=== PATIENT | male | born 1960 | race Caucasian/White ===

== ENCOUNTER 2021-06-29 15:10 | Outpatient (REF) | payer MEDICARE, MEDICAID, SELFPAY ==
[2021-06-29 15:24] LABS: MANUAL DIFF FLAG NO
[2021-06-29 15:30] LABS: Basophils Absolute Auto 0.1 X10*3/uL (0.0-0.2); Basophils Percent Auto 1.1 % (0-2); Eosinophils Absolute Auto 0.4 X10*3/uL (0.0-0.4); Eosinophils Percent Auto 5.8 % (0-4); Hematocrit 41.8 % (42-52); Hemoglobin 14.2 g/dl (14.0-18.0); Imm Gran Abs Auto 0.01 X10*3/uL (0.00-0.03); Imm Gran Pct Auto 0.1 % (0.0-0.4); Lymphocytes Percent Auto 27.7 % (20-40); Mean Corpuscular Hemoglobin 31.3 pg (27.0-33.0); Mean Corpuscular Volume 92.3 fL (80-98); Mean Platelet Volume 11.1 fL (9.4-12.4); Monocytes Absolute Auto 0.6 X10*3/uL (0.1-1.2); Monocytes Percent Auto 8.7 % (2-11); Neutrophils Percent Auto 56.6 % (45-73); Platelet Count 151 X10*3/uL (160-400); Red Blood Count 4.53 X10*6/uL (4.60-5.80); Red Cell Distribution Width 14.4 % (11.0-16.0); White Blood Count 7.1 X10*3/uL (4.8-10.8)
[2021-06-29 15:54] LABS: Alanine Aminotransferase 8 U/L (0-40); Albumin Level 4.2 g/dL (3.5-5.0); Alkaline Phosphatase 76 U/L (39-117); Anion Gap 11 (12-20); Aspartate Amino Transferase 15 U/L (5-37); Bilirubin Total 0.8 mg/dL (0.0-1.0); Blood Urea Nitrogen 18 mg/dL (9-16); Calcium 8.9 mg/dL (8.4-10.2); Carbon Dioxide 26 mmol/L (22-29); Chloride 107 mmol/L (96-108); Estimated Glomerular Filt Rate > 60; Glucose Random 89 mg/dL (60-115); Potassium 4.4 mmol/L (3.3-5.1); Sodium 140 mmol/L (135-145)
== END 2021-06-29 15:11 | disposition home or self-care (01) ==
LOC: HO.LAB 15:10
PROVIDERS: PCP Internal Medicine; Visit Provider Internal Medicine Medical Oncology
DX: D69.6 Thrombocytopenia, unspecified (principal); E66.3 Overweight
CPT/HCPCS: 36415; 80053; 85025

== ENCOUNTER 2022-06-28 15:01 | Outpatient (REF) | payer MEDICARE, MEDICAID, SELFPAY ==
[2022-06-28 15:21] LABS: MANUAL DIFF FLAG NO
[2022-06-28 15:34] LABS: Basophils Absolute Auto 0.1 X10*3/uL (0.0-0.2); Basophils Percent Auto 0.9 % (0-2); Eosinophils Absolute Auto 0.2 X10*3/uL (0.0-0.4); Hemoglobin 13.5 g/dl (14.0-18.0); Imm Gran Abs Auto 0.02 X10*3/uL (0.00-0.03); Imm Gran Pct Auto 0.4 % (0.0-0.4); Lymphocytes Absolute Auto 1.4 X10*3/uL (1.2-4.9); Lymphocytes Percent Auto 24.9 % (20-40); Mean Corpuscular HGB Conc 33.8 g/dl (31.0-36.0); Mean Corpuscular Hemoglobin 31.3 pg (27.0-33.0); Mean Corpuscular Volume 92.8 fL (80.0-98.0); Mean Platelet Volume 11.5 fL (9.4-12.4); Monocytes Absolute Auto 0.4 X10*3/uL (0.1-1.2); Monocytes Percent Auto 7.7 % (2-11); Neutrophils Absolute Auto 3.4 x10*3/uL (2.0-8.3); Neutrophils Percent Auto 62.1 % (45-73); Platelet Count 112 X10*3/uL (160-400); Red Blood Count 4.31 X10*6/uL (4.60-5.80); Red Cell Distribution Width 14.3 % (11.0-16.0); White Blood Count 5.5 X10*3/uL (4.8-10.8)
[2022-06-28 15:52] LABS: Alanine Aminotransferase 10 U/L (0-40); Albumin Level 4.1 g/dL (3.5-5.0); Alkaline Phosphatase 68 U/L (39-117); Anion Gap 13 (12-20); Aspartate Amino Transferase 17 U/L (5-37); Blood Urea Nitrogen 15 mg/dL (9-16); Calcium 8.5 mg/dL (8.4-10.2); Carbon Dioxide 27 mmol/L (22-29); Chloride 104 mmol/L (96-108); Estimated Glomerular Filt Rate > 60; Glucose Random 134 mg/dL (60-115); Potassium 4.2 mmol/L (3.3-5.1); Sodium 140 mmol/L (135-145); Total Protein 6.6 g/dL (6.5-8.0)
== END 2022-06-28 15:02 | disposition home or self-care (01) ==
LOC: HO.LAB 15:01
PROVIDERS: PCP Internal Medicine; Visit Provider Internal Medicine Medical Oncology
DX: D69.6 Thrombocytopenia, unspecified (principal); E66.3 Overweight
CPT/HCPCS: 36415; 80053; 85025

== ENCOUNTER 2022-11-11 10:09 | Outpatient (REF) | payer MEDICARE, MEDICAID, SELFPAY ==
--- NOTE | ~2022-11-11 | XR_ITS ---
EXAMINATION: XR FOOT, LEFT CLINICAL INFORMATION: Pain. COMPARISON: None TECHNIQUE: AP, lateral, and oblique views of the left foot. FINDINGS: Bony alignment and mineralization are normal. No fracture, dislocation or left ankle joint effusion is seen. There is very mild osteoarthritic change of the tibiotalar joint. Boehler's angle is normal. There are small posterior and small to moderate plantar calcaneal spurs. No abnormal bone erosion is seen. There is no focal soft tissue swelling, gas or foreign body. XR/XR foot LT min 3V IMPRESSION: 1. There is very mild osteoarthritic change of the left tibiotalar joint. 2. There are calcaneal spurs. 3. No fracture, dislocation or left ankle joint effusion is seen.
== END 2022-11-11 10:10 | disposition home or self-care (01) ==
LOC: HO.HMGCX 10:09
PROVIDERS: PCP Internal Medicine; Visit Provider Internal Medicine
DX: M79.672 Pain in left foot (principal)
CPT/HCPCS: 73630

== ENCOUNTER 2022-12-21 10:11 | Outpatient (REF) | payer MEDICARE, MEDICAID, SELFPAY ==
[2022-12-21 10:34] LABS: MANUAL DIFF FLAG NO
[2022-12-21 11:01] LABS: Basophils Percent Auto 0.7 % (0-2); Eosinophils Absolute Auto 0.2 X10*3/uL (0.0-0.4); Eosinophils Percent Auto 2.9 % (0-4); Hematocrit 41.4 % (42.0-52.0); Hemoglobin 14.2 g/dl (14.0-18.0); Imm Gran Abs Auto 0.01 X10*3/uL (0.00-0.03); Imm Gran Pct Auto 0.2 % (0.0-0.4); Lymphocytes Absolute Auto 1.8 X10*3/uL (1.2-4.9); Mean Corpuscular HGB Conc 34.3 g/dl (31.0-36.0); Mean Corpuscular Hemoglobin 30.7 pg (27.0-33.0); Mean Corpuscular Volume 89.4 fL (80.0-98.0); Mean Platelet Volume 11.8 fL (9.4-12.4); Monocytes Absolute Auto 0.4 X10*3/uL (0.1-1.2); Monocytes Percent Auto 6.5 % (2-11); Neutrophils Absolute Auto 3.2 x10*3/uL (2.0-8.3); Neutrophils Percent Auto 56.7 % (45-73); Platelet Count 114 X10*3/uL (160-400); Red Blood Count 4.63 X10*6/uL (4.60-5.80); Red Cell Distribution Width 14.2 % (11.0-16.0); White Blood Count 5.6 X10*3/uL (4.8-10.8)
[2022-12-21 11:17] LABS: Alanine Aminotransferase 11 U/L (0-40); Albumin Level 3.8 g/dL (3.5-5.0); Alkaline Phosphatase 70 U/L (39-117); Anion Gap 11 (12-20); Aspartate Amino Transferase 17 U/L (5-37); Bilirubin Total 1.3 mg/dL (0.0-1.0); Blood Urea Nitrogen 18 mg/dL (9-16); Calcium 8.3 mg/dL (8.4-10.2); Carbon Dioxide 22 mmol/L (22-29); Chloride 111 mmol/L (96-108); Estimated Glomerular Filt Rate > 60; Glucose Fasting 99 mg/dL (60-99); Potassium 4.2 mmol/L (3.3-5.1); Sodium 140 mmol/L (135-145); Total Protein 6.3 g/dL (6.5-8.0)
== END 2022-12-21 10:12 | disposition home or self-care (01) ==
LOC: HO.LAB 10:11
PROVIDERS: PCP Internal Medicine; Visit Provider Internal Medicine Medical Oncology
DX: D69.6 Thrombocytopenia, unspecified (principal)
CPT/HCPCS: 36415; 80053; 85025

== ENCOUNTER 2023-12-19 15:28 | Outpatient (REF) | payer MEDICARE, MEDICAID, SELFPAY ==
[2023-12-19 15:40] LABS: MANUAL DIFF FLAG NO
[2023-12-19 16:25] LABS: Basophils Absolute Auto 0.1 X10*3/uL (0.0-0.2); Basophils Percent Auto 0.7 % (0-2); Eosinophils Absolute Auto 0.2 X10*3/uL (0.0-0.4); Eosinophils Percent Auto 2.3 % (0-4); Hematocrit 42.2 % (42.0-52.0); Hemoglobin 14.4 g/dl (14.0-18.0); Imm Gran Abs Auto 0.02 X10*3/uL (0.00-0.03); Imm Gran Pct Auto 0.3 % (0.0-0.4); Lymphocytes Absolute Auto 1.5 X10*3/uL (1.2-4.9); Lymphocytes Percent Auto 22.1 % (20-40); Mean Corpuscular HGB Conc 34.1 g/dl (31.0-36.0); Mean Corpuscular Hemoglobin 31.6 pg (27.0-33.0); Mean Corpuscular Volume 92.5 fL (80.0-98.0); Monocytes Absolute Auto 0.5 X10*3/uL (0.1-1.2); Monocytes Percent Auto 7.5 % (2-11); Neutrophils Absolute Auto 4.7 x10*3/uL (2.0-8.3); Neutrophils Percent Auto 67.1 % (45-73); Platelet Count 127 X10*3/uL (160-400); Red Blood Count 4.56 X10*6/uL (4.60-5.80); Red Cell Distribution Width 14.5 % (11.0-16.0)
[2023-12-19 17:01] LABS: Alanine Aminotransferase 15 U/L (0-40); Alkaline Phosphatase 72 U/L (39-117); Anion Gap 8 (12-20); Aspartate Amino Transferase 18 U/L (5-37); Bilirubin Total 1.2 mg/dL (0.0-1.0); Blood Urea Nitrogen 16 mg/dL (9-16); Calcium 8.8 mg/dL (8.4-10.2); Carbon Dioxide 28 mmol/L (22-29); Chloride 109 mmol/L (96-108); Erythrocyte Sedimentation Rate 2 MM/HR (0-15); Estimated Glomerular Filt Rate > 60; Glucose Random 99 mg/dL (60-115); Lactate Dehydrogenase 174 U/L (118-273); Potassium 4.1 mmol/L (3.3-5.1); Sodium 141 mmol/L (135-145); Total Protein 6.8 g/dL (6.5-8.0)
== END 2023-12-19 15:29 | disposition home or self-care (01) ==
LOC: HO.LAB 15:28
PROVIDERS: PCP Internal Medicine Medical Oncology; Visit Provider Internal Medicine Medical Oncology
DX: D69.6 Thrombocytopenia, unspecified (principal)
CPT/HCPCS: 36415; 80053; 83615; 85025; 85652

== ENCOUNTER 2024-06-18 13:47 | Outpatient (REF) | payer MEDICARE, SELFPAY ==
[2024-06-18 14:08] LABS: MANUAL DIFF FLAG NO
[2024-06-18 14:44] LABS: Basophils Absolute Auto 0.1 X10*3/uL (0.0-0.2); Basophils Percent Auto 0.9 % (0-2); Eosinophils Absolute Auto 0.2 X10*3/uL (0.0-0.4); Eosinophils Percent Auto 2.6 % (0-4); Hematocrit 40.8 % (42.0-52.0); Hemoglobin 14.3 g/dl (14.0-18.0); Imm Gran Abs Auto 0.02 X10*3/uL (0.00-0.03); Imm Gran Pct Auto 0.3 % (0.0-0.4); Lymphocytes Absolute Auto 1.4 X10*3/uL (1.2-4.9); Lymphocytes Percent Auto 23.9 % (20-40); Mean Corpuscular Hemoglobin 32.2 pg (27.0-33.0); Mean Corpuscular Volume 91.9 fL (80.0-98.0); Mean Platelet Volume 12.2 fL (9.4-12.4); Monocytes Absolute Auto 0.4 X10*3/uL (0.1-1.2); Monocytes Percent Auto 6.3 % (2-11); Neutrophils Absolute Auto 3.9 x10*3/uL (2.0-8.3); Platelet Count 111 X10*3/uL (160-400); Red Blood Count 4.44 X10*6/uL (4.60-5.80); Red Cell Distribution Width 14.5 % (11.0-16.0); White Blood Count 5.9 X10*3/uL (4.8-10.8)
[2024-06-18 15:10] LABS: Alanine Aminotransferase 13 U/L (0-40); Alkaline Phosphatase 72 U/L (39-117); Anion Gap 11 (12-20); Aspartate Amino Transferase 19 U/L (5-37); Bilirubin Total 1.3 mg/dL (0.0-1.0); Blood Urea Nitrogen 18 mg/dL (9-16); Calcium 8.8 mg/dL (8.4-10.2); Carbon Dioxide 26 mmol/L (22-29); Chloride 108 mmol/L (96-108); Estimated Glomerular Filt Rate 59; Glucose Random 132 mg/dL (60-115); Potassium 3.9 mmol/L (3.3-5.1); Sodium 141 mmol/L (135-145); Total Protein 6.7 g/dL (6.5-8.0)
== END 2024-06-18 13:48 | disposition home or self-care (01) ==
LOC: HO.LAB 13:47
PROVIDERS: PCP Internal Medicine; Visit Provider Internal Medicine Medical Oncology
DX: D69.6 Thrombocytopenia, unspecified (principal); D64.9 Anemia, unspecified
CPT/HCPCS: 36415; 80053; 85025

== ENCOUNTER 2024-12-18 09:00 | Outpatient (REF) | payer MEDICARE, SELFPAY ==
[2024-12-18 09:12] LABS: MANUAL DIFF FLAG NO
[2024-12-18 09:33] LABS: Basophils Percent Auto 0.7 % (0-2); Eosinophils Absolute Auto 0.1 X10*3/uL (0.0-0.4); Eosinophils Percent Auto 2.3 % (0-4); Hematocrit 41.2 % (42.0-52.0); Hemoglobin 14.2 g/dl (14.0-18.0); Imm Gran Abs Auto 0.02 X10*3/uL (0.00-0.03); Imm Gran Pct Auto 0.4 % (0.0-0.4); Lymphocytes Absolute Auto 1.5 X10*3/uL (1.2-4.9); Lymphocytes Percent Auto 25.9 % (20-40); Mean Corpuscular HGB Conc 34.5 g/dl (31.0-36.0); Mean Corpuscular Hemoglobin 31.9 pg (27.0-33.0); Mean Corpuscular Volume 92.6 fL (80.0-98.0); Mean Platelet Volume 11.6 fL (9.4-12.4); Monocytes Absolute Auto 0.4 X10*3/uL (0.1-1.2); Monocytes Percent Auto 7.5 % (2-11); Neutrophils Absolute Auto 3.5 x10*3/uL (2.0-8.3); Neutrophils Percent Auto 63.2 % (45-73); Platelet Count 113 X10*3/uL (160-400); Red Blood Count 4.45 X10*6/uL (4.60-5.80); Red Cell Distribution Width 15.3 % (11.0-16.0); White Blood Count 5.6 X10*3/uL (4.8-10.8)
--- OUTSIDE RECORDS SUMMARY | 2024-12-18 09:51 | XMS_ITS ---
Author Organization Lio Puga III, MD Address [address] [place] [address] Care Team Providers Care Anchor Tack Puller Name Role Phone Sudhakar Shepherd MD Primary Care Provider Unavailab Lio Aguilera Unavailable [phone] Allergies Allergen (clinical drug ingredient) Drug/Non Drug [...] Date Provider Diagnosis Lio Puga III, MD [address] [place] [address] [place] [address] 12/21/2023 Lio Puga Thrombocytopenia D69 .6 ; [...] Reason: ov review labs Provider Name:Lio Puga, 12/19/2024 11:00:00 AM, [address] [place] [address], [address], Progress Notes * Deric POLODOB:[birth year] (63 yo M)Acc No.[id number]:12/21/2023 Progress Notes Patient:?Deric Polo Provider:?Lio Puga MD :1960???Age:63 Y???Sex:Male Sheldon e:12/21/2023 Address:[facility] [address], [place], [place] Pcp:Sudhakar Shepherd MD Subjective: * Chief Complaints: * ???AnemiaHIV infectionThromb ocytopeniaVaricoseObesity * HPI: ???COVID-19 Screening:? He has lost 5 pounds in the longer obese. His HIV titers are negative. He is compliant with his medication. He is treated by a Dr. Fierro. He has had no blood transfusions mcgarry episodes of bleeding. His blood workk was reviewed with him. Feels healthy and well today. ?Questions?Have you experienced fever, chills, cough, sore throat, shortness of breath, difficulty breathing, muscle aches, loss of taste or smell??No ?Have you been exposed to the virus within the last 10 days??No ?Have you travelled internationally in the last 10 days??No ?Have you been exposed to COVID-19 in the past??Yes * ROS:?General/Constitutional:?pain?only normal aches and pains.?Chills?denies.?Fatigue?admits.?Fever?denies.?ENT:?Decreased hearing?denies.?Respiratory:?Cough?denies.?Cardiovascular:?Chest pain with exertion?denies.?Dyspnea on exertion?denies.?Shortness of breath?denies.?Gastrointestinal:?Constipation?occasional.?Decreased appetite?denies.?Diarrhea?denies.?Heartburn?denies.?Nausea?denies.?Rectal bleeding?denies.?Vomiting?denies.?Hematology:?bruising?denies.?petechiae?denies.?Swollen glands?none have been noted.?Genitourinary:?Frequent urination?once a night.?Musculoskeletal:?Muscle aches?denies.?Painful joints?denies.?Sciatica?denies.?Weakness?denies.?Skin:?Itching?denies.?Rash?denies.?Skin lesion(s)?denies.?Neurologic:?Difficulty speaking?denies.?Dizziness?denies.?Headache?denies.?Low back pain?denies.?Psychiatric:?Depressed mood?denies.? * Medical History:? * Surgical History:?full denta l extractions without unusual bleeding Vasectomy without bleeding 1991repair right distal biceps tendon rupture, [facility] 2014repair 3 cm laceration upper lip without bleeding 2014biopsy of tongue 12/2018 * Hospitalization/Major Diagno stic Procedure:?pneumonia and dehydratioin 12/2018 * Family History:?Father: dece ased 63 yrs, Lung cancer spread to brain, diagnosed with Cancer.?Mother: 67 yrs, alzheimers.?1 sister(s) . 2 son(s) , 1 daughter(s) . .? He has 3 children, 2 sons and 1 daughter who are healthy and well. There is no family history of bleeding disorders. 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 He has no significant exposures. He is to [place]. He is not aware of any family history of mental illness, substance use disorder, or addictions. * Medications:?TakingCialis 10 MG Tablet 1 tablet as needed [...] reviewed and reconciled with the patient * Allergies:?Tree Nuts: anaphy laxis - Allergyno[Allergies Verified] Objective: * Vitals:?Ht: 73, Wt:226, BMI: 29.81, BP:137/83, HR:74, Temp:99.00, Wt-k.51. * ???Past Orders: ???Lab:Lactate Dehydrogenase (Order Date - 12/19/2023) (Collection Date - 12/19/2023) ? Value Reference Range ?Lactate Dehydrogenase 174 118-273 - U/L Lab:Comprehensive Met. Panel * Order Date 12/19/2023 06/28/2022 06/29/2021 Sodium 141 (Ref Range: 135-145 mmol/L) 140 (Ref Range: 135-145 mmol/L) 140 (Ref Range: 135-145 mmol/L) Bilirubin Total 1.2?H (Ref Range: 0.0-1.0 mg/dL) 1.0 (Ref Range: [...] mmol/L) 4.4 (Ref Range: 3.3-5.1 mmol/L) Chloride 109?H (Ref Range: 96-108 mmol/L) 104 (Ref Range: 96-108 mmol/L) 107 (Ref Range: 96-108 mmol/L) Carbon Dioxide 28 (Ref Range: 22-29 mmol/L) 27 (Ref Range: 22-29 mmol/L) 26 (Ref Range: 22-29 mmol/L) Anion Gap 8?L (Ref Range: 12-20) 13 (Ref Range: 12-20) 11?L (Ref Range: 12-20) Blood Urea Nitrogen 16 (Ref Range: 9-16 mg/dL) 15 (Ref Range: 9-16 mg/dL) 18?H (Ref Range: 9-16 mg/dL) Creatinine 1.14 (Ref Range: 0.5-1.4 mg/dL) 1.05 (Ref Range: 0.5-1.4 mg/dL) 1.19 (Ref Range: 0.5-1.4 mg/dL) Estimated Glomerular Filt Rate > 60 > 60 > 60 Glucose Random 99 (Ref Range: 60-115 mg/dL) 134?H (Ref Range: 60-115 mg/dL) 89 (Ref Range: [...] (Ref Range: 4.8-10.8 X10*3/uL) Red Blood Count 4.56?L (Ref Range: 4.60-5.80 X10*6/uL) 4.63 (Ref Range: 4.60-5.80 X10*6/uL) 4.31?L (Ref Range: 4.60-5.80 X10*6/uL) Hemoglobin 14.4 (Ref Range: 14.0-18.0 g/dl) 14.2 (Ref Range: 14.0-18.0 g/dl) 13.5?L (Ref Range: 14.0-18.0 g/dl) Hematocrit 42.2 (Ref Range: 42.0-52.0 %) 41.4?L (Ref Range: 42.0-52.0 %) 40.0?L (Ref Range: 42.0-52.0 %) Mean Corpuscular Volume [...] 14.3 (Ref Range: 11.0-16.0 %) Platelet Count 127?L (Ref Range: 160-400 X10*3/uL) 114?L (Ref Range: 160-400 X10*3/uL) 112?L (Ref Range: 160-400 X10*3/uL) Mean Platelet Volume [...] 0.000 (Ref Range: 0.0-0.012 X10*3/uL) * Examination: ???General Examination: ?GENERAL APPEARANCE:?pleasant, well nourished, well developed, in no acute distress, calm and relaxed , overweight , man.?HEAD:?atraumatic, normocephalic.?EYES:?eomi, perrla, anicteric, conjugate.?EARS:?normal.?NOSE:?septum intact.?ORAL CAVITY:?normal, unremarkable.?NECK/THYROID:?no jugular venous distention, no carotid bruit, thyroid normal.?LYMPH NODES:?no enlarged lymph nodes,spleen normal.?SKIN:?no suspicious lesions, anicteric.?HEART:?no clicks, gallops, murmurs, or rubs, regular rhythm, S1, S2 normal, no s3, or vascular bruits.?LUNGS:?clear to auscultation .?BREASTS:??no masses palpable bilaterally.?ABDOMEN:?bowel sounds normal, no ascites, no organomegaly, no mass , overweight.?RECTAL EXAM:?not examined.?MUSCULOSKELETAL:?extremities unremarkable, no clubbing, cyanosis or edema.?PERIPHERAL PULSES:?normal.?NEUROLOGIC:?alert and oriented, cranial nerves 2-12 grossly intact, deep tendon reflexes 2+ symmetrical, motor strength normal upper and lower extremities, sensory exam intact.?PSYCH:?alert, oriented.? Assessment: * Assessment: 1.?Thrombocytopenia - D69.6 (Primary), His platelet count is 127,000. He has had no bleeding or transfusions. 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 There is no sign of a large cell lymphoma.?4.?Varicose veins of bilateral lower extremities with other complications - I83.893, There has been no change in his problem and it does not require treatment at this time.? Plan: * Treatment: 2.?Normochromic normocytic a nemia?LAB: PROFILE, RANDOM (COMPREHENSIVE METABOLIC) ?LAB: CBC w DIFF * Procedure Codes:? * Preventive Medicine:? ??Counseling:?Care goal follow-up plan:?Counseling for abnormal BMI given?Yes ?Above Normal BMI Follow-up?Dietary management education, guidance, and counseling, Dietary needs education, Exercise promotion: strength training, Exercise promotion: stretching, Feeding regime, Giving encouragement to exercise, Lifestyle education regarding diet, Nutrition / feeding management, Nutrition therapy, Prescribed activity/exercise education, Prescribed diet education, Prescribed dietary intake, Special diet education, Weight monitoring , Intervention, Order not done: Medical or Other reason not done * Follow Up:?6 Months (Reason: ov review labs) * Images: * Sign off status: Completed true * Provider:?Lio Puga MD Date:?12/11 Generated for Roscoe vargas/Lesli/Gucci on:?12/18/2024 09:51 AM EDT History and Physical Notes * HPI (History of Present Illness) Category Sub-Category Detail Notes COVID-19 Screening Questions Have you had any new onset fever, chills, cough, congestion, sore throat, shortness of breath, muscle aches?: No Have you been exposed to the virus withi n the last 10 days?: No Have you travelled internationally in e last 10 days?: No Have you been [...]
--- OUTSIDE RECORDS SUMMARY | 2024-12-18 09:51 | XMS_ITS | Patient Health Record ---
Author Organization Lio Puga III, MD Address [address] [place] [address] Care Team Providers Care Youth Development Specialist Name Role Phone Sudhakar Shepherd MD Primary Care Provider Unavailab Lio Aguilera Unavailable [phone] Allergies Allergen (clinical drug ingredient) Drug/Non Drug Allergy documented on EMR Reaction Allergy Type Onset Date Status Tree Nuts anaphylaxis Allergy Active Results Component Value Reference Range Notes Complete Blood Count Auto Di ff Reviewed date:12/21/2023 10:39:20 AM Interpretation: Performing Lab:[facility], [address] [place] [phone] Notes/Report: White Blood Count 7.0 4.8-10.8 X10*3/uL Red Blood Count 4.56 4.60-5.80 X10*6/uL Hemoglobin 14.4 14.0-18.0 g/dl Hematocrit 42.2 42.0-52.0 % Mean Corpuscular Volume 92.5 80.0-98.0 fL Mean Corpuscular Hemoglobin 31.6 27.0-33.0 pg Mean Corpuscular HGB Conc 34.1 31.0-36.0 g/dl Red Cell Distribution Width 14.5 11.0-16.0 % Platelet Count 127 160-400 X10*3/uL Mean Platelet Volume 12.0 9.4-12.4 fL Neutrophils Percent Auto 67.1 45-73 % Imm Gran Pct Auto 0.3 0.0-0.4 % Lymphocytes Percent Auto 22.1 20-40 % Monocytes Percent Auto 7.5 2-11 % Eosinophils Percent Auto 2.3 0-4 % Basophils Percent Auto 0.7 0-2 % NRBC Pct Auto 0.0 0.0-0.2 /100WBC Neutrophils Absolute Auto 4.7 2.0-8.3 x10*3/u L Imm Gran Abs Auto 0.02 0.00-0.03 X10*3/uL Lymphocytes Absolute Auto 1.5 1.2-4.9 X10*3/u L Monocytes Absolute Auto 0.5 0.1-1.2 X10*3/uL Eosinophils Absolute Auto 0.2 0.0-0.4 X10*3/u L Basophils Absolute Auto 0.1 0.0-0.2 X10*3/uL NRBC Abs Auto 0.000 0.0-0.012 X10*3/uL Erythrocyte Sedimentation Ra te Reviewed date:12/21/2023 10:39:20 AM Interpretation: Performing Lab:[facility], [address] [place] [phone] Notes/Report: Erythrocyte Sedimentation Rate 2 0-15 MM/HR Patients with polycythemia and many hemoglobin abnormalities may have depressed sed rates whereas patients with anemia may have elevated sed rates. Comprehensive Met. Panel Reviewed date:12/21/2023 10:39:20 AM Interpretation: Performing Lab:[address] [phone] Notes/Report: Sodium 141 135-145 mmol/L Potassium 4.1 3.3-5.1 mmol/L Chloride 109 96-108 mmol/L Carbon Dioxide 28 22-29 mmol/L Anion Gap 8 12-20 Blood Urea Nitrogen 16 9-16 mg/dL Creatinine 1.14 0.5-1.4 mg/dL Estimated Glomerular Filt Rate > 60 NOTE: For -Jordanian individuals, multiply the result by 1.210. Chronic Kidney Disease: Estimated GFR < 60 mL/min/1.73m2 Severe Kidney Disease: Estimated GFR < 15 mL/min/1.73m2 Glucose Random 99 60-115 mg/dL Calcium 8.8 8.4-10.2 mg/dL Bilirubin Total 1.2 0.0-1.0 mg/dL Aspartate Amino Transferase 18 5-37 U/L Alanine Aminotransferase 15 0-40 U/L Total Protein 6.8 6.5-8.0 g/dL Albumin Level 4.0 3.5-5.0 g/dL Alkaline Phosphatase 72 39-117 U/L Lactate Dehydrogenase Reviewed date:12/21/2023 10:39:20 AM Interpretation: Performing Lab:[facility], [address] [place] [phone] Notes/Report: Lactate Dehydrogenase 174 118-273 U/L Complete Blood Count Auto Di ff Reviewed date:06/20/2024 10:24:49 AM Interpretation: Performing Lab:[facility], [address] [place] [phone] Notes/Report: White Blood Count 5.9 4.8-10.8 X10*3/uL Red Blood Count 4.44 4.60-5.80 X10*6/uL Hemoglobin 14.3 14.0-18.0 g/dl Hematocrit 40.8 42.0-52.0 % Mean Corpuscular Volume 91.9 80.0-98.0 fL Mean Corpuscular Hemoglobin 32.2 27.0-33.0 pg Mean Corpuscular HGB Conc 35.0 31.0-36.0 g/dl Red Cell Distribution Width 14.5 11.0-16.0 % Platelet Count 111 160-400 X10*3/uL Mean Platelet Volume 12.2 9.4-12.4 fL Neutrophils Percent Auto 66.0 45-73 % Imm Gran Pct Auto 0.3 0.0-0.4 % Lymphocytes Percent Auto 23.9 20-40 % Monocytes Percent Auto 6.3 2-11 % Eosinophils Percent Auto 2.6 0-4 % Basophils Percent Auto 0.9 0-2 % NRBC Pct Auto 0.0 0.0-0.2 /100WBC Neutrophils Absolute Auto 3.9 2.0-8.3 x10*3/u L Imm Gran Abs Auto 0.02 0.00-0.03 X10*3/uL Lymphocytes Absolute Auto 1.4 1.2-4.9 X10*3/u L Monocytes Absolute Auto 0.4 0.1-1.2 X10*3/uL Eosinophils Absolute Auto 0.2 0.0-0.4 X10*3/u L Basophils Absolute Auto 0.1 0.0-0.2 X10*3/uL NRBC Abs Auto 0.000 0.0-0.012 X10*3/uL Comprehensive Met. Panel Reviewed date:06/20/2024 10:24:49 AM Interpretation: Performing Lab:[facility], [address] [place] [phone] Notes/Report: Sodium 141 135-145 mmol/L Potassium 3.9 3.3-5.1 mmol/L Chloride 108 96-108 mmol/L Carbon Dioxide 26 22-29 mmol/L Anion Gap 11 12-20 Blood Urea Nitrogen 18 9-16 mg/dL Creatinine 1.24 0.5-1.4 mg/dL Estimated Glomerular Filt Rate 59 NOTE: For -Jordanian individuals, multiply the result by 1.210. Chronic Kidney Disease: Estimated GFR < 60 mL/min/1.73m2 Severe Kidney Disease: Estimated GFR < 15 mL/min/1.73m2 Glucose Random 132 60-115 mg/dL Calcium 8.8 8.4-10.2 mg/dL Bilirubin Total 1.3 0.0-1.0 mg/dL Aspartate Amino Transferase 19 5-37 U/L Alanine Aminotransferase 13 0-40 U/L Total Protein 6.7 6.5-8.0 g/dL Albumin Level 4.0 3.5-5.0 g/dL Alkaline Phosphatase 72 39-117 U/L Complete Blood Count Auto Di ff (Not yet reviewed by provider) Interpretation: Performing Lab:[facility], [address] [place] [phone] Notes/Report: White Blood Count 5.6 4.8-10.8 X10*3/uL Red Blood Count 4.45 4.60-5.80 X10*6/uL Hemoglobin 14.2 14.0-18.0 g/dl Hematocrit 41.2 42.0-52.0 % Mean Corpuscular Volume 92.6 80.0-98.0 fL Mean Corpuscular Hemoglobin 31.9 27.0-33.0 pg Mean Corpuscular HGB Conc 34.5 31.0-36.0 g/dl Red Cell Distribution Width 15.3 11.0-16.0 % Platelet Count 113 160-400 X10*3/uL Mean Platelet Volume 11.6 9.4-12.4 fL Neutrophils Percent Auto 63.2 45-73 % Imm Gran Pct Auto 0.4 0.0-0.4 % Lymphocytes Percent Auto 25.9 20-40 % Monocytes Percent Auto 7.5 2-11 % Eosinophils Percent Auto 2.3 0-4 % Basophils Percent Auto 0.7 0-2 % NRBC Pct Auto 0.0 0.0-0.2 /100WBC Neutrophils Absolute Auto 3.5 2.0-8.3 x10*3/u L Imm Gran Abs Auto 0.02 0.00-0.03 X10*3/uL Lymphocytes Absolute Auto 1.5 1.2-4.9 X10*3/u L Monocytes Absolute Auto 0.4 0.1-1.2 X10*3/uL Eosinophils Absolute Auto 0.1 0.0-0.4 X10*3/u L Basophils Absolute Auto 0.0 0.0-0.2 X10*3/uL NRBC Abs Auto 0.000 0.0-0.012 X10*3/uL Reason For Referral No Information Medications Medication SIG (Take, Route, Fr equency, [...] nonsmoker Additional Findings: Tobacco Non-User Aggressive non-smoker Problems Problem Type SNOMED Code ICD Code Onset Dates Problem Status W/U Status Risk Notes Problem 731845987 Overweight (BMI 25.0-29.9) (E66.3) Active confirmed His body mass index is 30, which is narrowing the obese range. We discussed his weight loss strategy. Problem Thrombocytopenia (846983842) Thrombocytopenia (D69.6) Active confirmed His platelet count is 111,000. He has had no bleeding or transfusions. He will refrain from taking aspirin.This value will be followed. Problem 396368409 Human immunodeficiency virus [HIV] disease (B20) Active confirmed His HIV infection is well controlled and no change in his regimen is needed at this time. Problem 33948390 Varicose veins o f bilateral lower extremities with other complications (I83.893) Active confirmed There has been no change in his problem and it does not require treatment at this time. Problem 13370663 Normochromic normocytic anemia (D64.9) Active confirmed His hematocrit is 41 and this problem has resolved. Problem 707601657 Rupture of right biceps tendon, subsequent encounter (S46.211D) Active confirmed The area is now asymptomatic. Problem 372744430 Large granular lymphocyte disorder (C91.Z0) Active confirmed His blood work is now normal with normal differential while he is being treated for his HIV infection. There is no sign of a large cell lymphoma. Problem 82581995 Asymptomatic HIV infection (Z21) Active confirmed He remains under the care of infectious disease with good control of his infection. Vital Signs Heart Rate 79 /min 06/20/2024 Temperature 98.3 degrees Fahrenheit 06/20/2024 Blood pressure diastolic 72 mm Hg 06/20/2024 Height 73 in 06/20/2024 Blood pressure systolic 130 mm Hg 06/20/2024 Weight 215 lbs 06/20/2024 BMI 28.36 kg/m2 06/20/2024 Encounters Encounter Location Date Provider Diagnosis Lio Puga III, MD [address] [place] [address] [address] [place] [place] [phone] 12/21/2023 Lio Puga Thrombocytopenia D69 .6 ; Normochromic normocytic anemia D64.9 ; Large granular lymphocyte disorder C91.Z0 and Varicose veins of bilateral lower extremities with other complications I83.893 Lio Puga III, MD [address] [place] [address] [place] [address] 06/20/2024 Lio Puga Thrombocytopenia D69 .6 ; [...] is 42.2 and this problem has resolved. 06/20/2024 Thrombocytopenia (ICD-10 - D69.6) His platelet count is 111,000. He has had no bleeding or transfusions. He will refrain from taking aspirin.This value will be followed. 06/20/2024 Varicose veins of bilateral lower extremities with other complications (ICD-10 - I83.893) There has been no change in his problem and it does not require treatment at this time. 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 There is no sign of a large cell lymphoma. 06/20/2024 Rupture of right biceps tendon, subsequent encounter (ICD-10 - S46.211D) The area is now asymptomatic. 12/21/2023 Varicose veins of bilateral lower extremities with other complications (ICD-10 - I83.893) There has been no change in his problem and it does not require treatment at this time. 06/20/2024 Large granular lymphocyte disorder (ICD-10 - [...] his weight loss strategy. Plan Of Treatment Pending Test Test Name Order Date PROFILE, FASTING (COMPREHENSIVE METABOLI C) 06/29/2022 PROFILE, RANDOM (COMPREHENSIVE METABOLIC ) 06/29/2021 PROFILE, RANDOM (COMPREHENSIVE METABOLIC ) 05/23/2019 PROFILE, RANDOM (COMPREHENSIVE METABOLIC ) 06/22/2023 PROFILE, RANDOM (COMPREHENSIVE METABOLIC ) 06/20/2024 PROFILE, RANDOM (COMPREHENSIVE METABOLIC ) 11/22/2018 PROFILE, RANDOM (COMPREHENSIVE METABOLIC ) 05/26/2020 PROFILE, RANDOM (COMPREHENSIVE METABOLIC ) 04/23/2019 PROFILE, RANDOM (COMPREHENSIVE METABOLIC ) 12/21/2022 PROFILE, RANDOM (COMPREHENSIVE METABOLIC ) 12/21/2023 LDH 06/22/2023 CBC w DIFF 12/21/2022 CBC w DIFF 12/21/2023 CBC w DIFF 06/29/2021 CBC w DIFF 05/23/2019 CBC w DIFF 06/20/2024 CBC w DIFF 11/22/2018 CBC w DIFF 06/22/2023 CBC w DIFF 06/29/2022 CBC w DIFF 05/26/2020 CBC with MANUAL DIFFERENTIAL 04/23/2019 PLATELET COUNT 05/23/2019 SED RATE (ESR) 06/22/2023 Bone Marrow Biopsy and Aspiration 2018 Complete Blood Count Auto Diff 5 Next Appt Details Provider Name:Lio Puga, 12/19/2024 11:00:00 AM, [address] [place] [address] DR [address], [place], [address], Insurance Providers Payer Name Payer Address Payer Phone Subscriber Number Group Number Insured Name Patient Relationship to Insured Coverage Start Date Coverage End Date MEDICARE NGS [address] [place] [address] [id number] Deric Moore Self - patient is the insured [facility] [address] [place], [place] [id number] [phone] [id number] Deric Moore Self - patient is the insured Medical (General) History Medical History History ICD Code ED Varicose veins concussion left shoulder. 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
--- OUTSIDE RECORDS SUMMARY | 2024-12-18 09:51 | XMS_ITS ---
Author Organization Lio Puga III, MD Address [address] [place] [address] Care Team Providers Care Salesperson Household Appliances Name Role Phone Sudhakar Shepherd MD Primary Care Provider UnavailLio Damon Unavailable [phone] Allergies Allergen (clinical drug ingredient) Drug/Non Drug Allergy documented on EMR Reaction Allergy Type Onset Date Status nuts (uncoded) anaphylaxis Allergy Act [place] REASON FOR VISIT Normochromic normocytic anemia, Thrombocytopenia, Large granular lymphocyte disorder, HIV infection Medications Medication SIG (Take, Route, Fr equency, Duration) Notes Start Date End Date Status ZyrTEC Allergy 10 MG 1 tablet Orally Once a day Active Biktarvy 50-200-25 MG 1 tablet Orally Once a day Active Cialis 10 MG 1 tablet as needed Orally Active Advil 200 MG 1 tablet with food o r milk as needed Orally Three times a day Active Social History Tobacco Use: Social History Observation Description Date Details (start date - stop date) Never Smoker NA - NA Sex Assigned At : Social History Observation Description Sex Assigned At Male Tobacco Use/Smoking Question Answer Notes Patient is a nonsmoker Additional Findings: Tobacco Non-User Aggressive non-smoker Vital Signs Temperature 97.0 degrees Fahrenheit 06/22/20 23 Blood pressure systolic 124 mm Hg 06/22/20 23 Blood pressure diastolic 80 mm Hg 023 Heart Rate 64 /min 06/22/2023 Height 73 in 06/22/2023 Weight 231 lbs 06/22/2023 BMI 30.47 kg/m2 06/22/2023 Encounters Encounter Location Date Provider Diagnosis Lio Puag III, MD [address] [place] [address] [place] [address] 06/22/2023 Lio Puga Thrombocytopenia D69 .6 ; Varicose veins of bilateral lower extremities with other complications I83.893 ; Normochromic normocytic anemia D64.9 ; Large granular lymphocyte disorder C91.Z0 ; Human immunodeficiency virus [HIV] disease B20 ; Asymptomatic HIV infection Z21 and Obesity (BMI 30.0-34.9) E66.9 Assessments Encounter Date Diagnosis (ICD Code) Assessment Notes Treat ment Notes Treatment Clinical Notes 06/22/2023 Thrombocytopenia (ICD-10 - D69.6) His platelet count is 114,000. He has had no bleeding or transfusions. He will refrain from taking aspirin. 06/22/2023 Varicose veins of bilateral lower extremities with other complications (ICD-10 - I83.893) There has been no change in his problem and it does not require treatment at this time. 06/22/2023 Normochromic normocytic anemia (ICD-10 - D64.9) No therapy is needed for his anemia. Observation will continue. He has had no bleeding. 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 There is no sign of a large cell lymphoma. 06/22/2023 Human immunodeficien cy virus [HIV] disease (ICD-10 - B20) His HIV infection is well controlled and no change in his regimen is needed at this time. 06/22/2023 Asymptomatic HIV infection (ICD-10 - Z21) He remains under the care of infectious disease with good control of his infection. 06/22/2023 Obesity (BMI 30.0-34.9) (ICD-10 - E66.9) His body mass index is 30. We discussed his diet and nutrition. He made a plan to lose weight at a rate of one half of a pound per week. Plan Of Treatment Medication Medication Name Sig Start Date Stop Date Notes ZyrTEC Allergy 10 MG 1 tablet Orally Once a day Biktarvy 50-200-25 MG 1 tablet Orally Once a day Cialis 10 MG 1 tablet as needed Orally Advil 200 MG 1 tablet with food o r milk as needed Orally Three times a day Pending Test Test Name Order Date PROFILE, RANDOM (COMPREHENSIVE METABOLIC ) 06/22/2023 LDH 06/22/2023 CBC w DIFF 06/22/2023 SED RATE (ESR) 06/22/2023 Next Appt Details Follow Up: 6 Months, Reason: ov review labs Provider Name:Lio Puga, 12/19/2024 11:00:00 AM, [address] [place] [address] [address], [address], [place], [address], Progress Notes * CHRIST Deric NiceDOB:[birth year] (62 yo M)Acc No.[id number]:06/22/2023 Progress Notes Patient:?Christ Deric Tex Provider:?Lio Puga MD :1960???Age:62 Y???Sex:Male Sheldon e:06/22/2023 Address:[address] [place] [address], [address], [facility] Pcp:Sudhakar Shepherd MD Subjective: * Chief Complaints: * ???Normochromic normocytic a nemiaThrombocytopeniaLarge granular lymphocyte disorderHIV infection * HPI: ???COVID-19 Screening:?Questions?Have you experienced fever, chills, cough, sore throat, shortness of breath, difficulty breathing, muscle aches, loss of taste or smell??No ?Have you been exposed to the virus within the last 10 days??No ?Have you travelled internationally in the last 10 days??No ?Have you been exposed to COVID-19 in the past??Yes ? He returns for follow-up of his hematologic abnormalities. Since his last visit he has been implanted with his therapy. He says his HIV titers are very low. He has no recent infections or bleeding. He feels healthy and well. His blood work is not yet available. This will be ordered and done soon. * ROS:?General/Constitutional:?pain?only normal aches and pains.?Chills?denies.?Fatigue?admits.?Fever?denies.?ENT:?Decreased hearing?denies.?Respiratory:?Cough?denies.?Cardiovascular:?Chest pain with exertion?denies.?Dyspnea on exertion?denies.?Shortness of breath?denies.?Gastrointestinal:?Constipation?occasional.?Decreased appetite?denies.?Diarrhea?denies.?Heartburn?denies.?Nausea?denies.?Rectal bleeding?denies.?Vomiting?denies.?Hematology:?bruising?denies.?petechiae?denies.?Swollen glands?none have been noted.?Genitourinary:?Frequent urination?once a night.?Musculoskeletal:?Muscle aches?denies.?Painful joints?denies.?Sciatica?denies.?Weakness?denies.?Skin:?Itching?denies.?Rash?denies.?Skin lesion(s)?denies.?Neurologic:?Difficulty speaking?denies.?Dizziness?denies.?Headache?denies.?Low back pain?denies.?Psychiatric:?Depressed mood?denies.? * Medical History:? 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 He has no significant exposures. He is to [place]. He is not aware of any family history of mental illness, substance use disorder, or addictions. * Medications:?TakingZyrTEC Al lergy 10 MG Tablet 1 tablet Orally Once a dayAdvil 200 MG Tablet 1 tablet with food or milk as needed Orally Three times a dayCialis 10 MG Tablet 1 tablet as needed Orally Biktarvy 50-200-25 MG Tablet 1 tablet Orally Once a dayMedication List reviewed and reconciled with the patientTaking ZyrTEC Allergy 10 MG Tablet 1 tablet Orally Once a dayTaking Advil 200 MG Tablet 1 tablet with food or milk as needed Orally Three times a dayTaking Cialis 10 MG Tablet 1 tablet as needed Orally Taking Biktarvy 50-200-25 MG Tablet 1 tablet Orally Once a dayMedication List reviewed and reconciled with the patient * Allergies:?nuts: anaphylaxis - Allergyno[Allergies Verified] Objective: * Vitals:?Ht: 73, Wt: 231, BMI :30.47, BP: 124/80, HR: 64, Temp: 97.0, Wt-k.78. * Examination: ???General Examination: ?GENERAL APPEARANCE:?pleasant, well nourished, well developed, in no acute distress, calm and relaxed, obese, man.?HEAD:?atraumatic, normocephalic.?EYES:?eomi, perrla, anicteric, conjugate.?EARS:?normal.?NOSE:?septum intact.?ORAL CAVITY:?normal, unremarkable.?NECK/THYROID:?no jugular venous distention, no carotid bruit, thyroid normal.?LYMPH NODES:?no enlarged lymph nodes,spleen normal.?SKIN:?no suspicious lesions, anicteric.?HEART:?no clicks, gallops, murmurs, or rubs, regular rhythm, S1, S2 normal, no s3, or vascular bruits.?LUNGS:?clear to auscultation .?BREASTS:??no masses palpable bilaterally.?ABDOMEN:?bowel sounds normal, no ascites, no organomegaly, no mass, centripital obesity.?RECTAL EXAM:?not examined.?MUSCULOSKELETAL:?extremities unremarkable, no clubbing, cyanosis or edema.?PERIPHERAL PULSES:?normal.?NEUROLOGIC:?alert and oriented, cranial nerves 2-12 grossly intact, deep tendon reflexes 2+ symmetrical, motor strength normal upper and lower extremities, sensory exam intact.?PSYCH:?alert, oriented.? Assessment: * Assessment: 1.?Thrombocytopenia - D69.6 (Primary), His platelet count is 114,000. He has had no bleeding or transfusions. He will refrain from taking aspirin.?2.?Varicose veins of bilateral lower extremities with other complications - I83.893, There has been no change in his problem and it does not require treatment at this time.?3.?Normochromic normocytic anemia - D64.9, No therapy is needed for his anemia. Observation will continue. He has had no bleeding.?4.?Large granular lymphocyte disorder - C91.Z0, His blood work is now normal with normal differential while he is being treated for his HIV infection. There is no sign of a large cell lymphoma.?5.?Human immunodeficiency virus [HIV] disease - B20, His HIV infection is well controlled and no change in his regimen is needed at this time.?6.?Asymptomatic HIV infection - Z21, He remains under the care of infectious disease with good control of his infection.?7.?Obesity (BMI 30.0-34.9) - E66.9, His body mass index is 30. We discussed his diet and nutrition. He made a plan to lose weight at a rate of one half of a pound per week.? Plan: * Treatment: * Procedure Codes:? * Preventive Medicine:? ??Counseling:?Care goal follow-up plan:?Counseling for abnormal BMI given?Yes ?Above Normal BMI Follow-up?Dietary management education, guidance, and counseling * Follow Up:?6 Months (Reason: ov review labs ) * Images: * Sign off status: Completed true * Provider:?Lio Puga MD Date:?06/12 Generated for Roscoe vargas/Lesli/eTransmitting on:?12/18/2024 09:51 AM EDT History and Physical [...] in no acute distress, calm and relaxed, obese, man HEAD: atraumatic, normocep halic EYES: eomi, perrla, anicte lizeth, conjugate EARS: normal NOSE: septum intact NECK/THYROID: no jugular venous di stention, no carotid bruit, thyroid normal HEART: no clicks, gallops, murmurs, or rubs, regular rhythm, S1, S2 normal, no s3, or vascular bruits LUNGS: clear to auscultatio n ABDOMEN: bowel sounds normal, no ascites, no organomegaly, no mass, centripital obesity NEUROLOGIC: alert and oriented, cranial nerves 2-12 [...]
--- OUTSIDE RECORDS SUMMARY | 2024-12-18 09:51 | XMS_ITS ---
Author Organization Lio Puga III, MD Address [address] [place] [address] Care Team Providers Care Street Roller Engineer Name Role Phone Sudhakar Shepherd MD Primary Care Provider UnavailLio Damon [facility] [phone] Allergies Allergen (clinical drug ingredient) Drug/Non Drug [...] Date Provider Diagnosis Lio Puga III, MD [address] [place] [address] [place] [address] 06/20/2024 Lio Puga Thrombocytopenia D69 .6 ; [...] review labs, Regular check-up Provider Name:Lio Puga, 12/19/2024 11:00:00 AM, [address] [place] [address] [address], [place], [address], Progress Notes * Deric POLODOB:[birth year] (63 yo M)Acc No.[id number]:06/20/2024 Progress Notes Patient:?Deric POLO Provider:?Lio Puga MD :1960???Age:63 Y???Sex:Male Sheldon e:06/20/2024 Address:[address] [place] [address], [address], [place], [id number] Pcp:Sudhakar Shepherd MD Subjective: * Chief Complaints: * ???ThrombocytopeniaRight bic eps tendon ruptureVaricose veinsLarge granular lymphocytosisNormochromic normocytic anemiaHIV-positive * HPI: ???COVID-19 Screening:?Questions?Have you experienced fever, chills, cough, sore throat, shortness of breath, difficulty breathing, muscle aches, loss of taste or smell??No ?Have you been exposed to the virus within the last 10 days??No ?Have you travelled internationally in the last 10 days??No ?Have you been exposed to COVID-19 in the past??No ???:?The patient, a 63-year-old male, has been experiencing [...] medications. Blood Sugar Level is 132. * ROS:?General/Constitutional:?pain?only normal aches and pains.?Chills?denies.?Fatigue?admits.?Fever?denies.?ENT:?Decreased hearing?denies.?Respiratory:?Cough?denies.?Cardiovascular:?Chest pain with exertion?denies.?Dyspnea on exertion?denies.?Shortness of breath?denies.?Gastrointestinal:?Constipation?occasional.?Decreased appetite?denies.?Diarrhea?denies.?Heartburn?denies.?Nausea?denies.?Rectal bleeding?denies.?Vomiting?denies.?Hematology:?bruising?denies.?petechiae?denies.?Swollen glands?none have been noted.?Genitourinary:?Frequent urination?once a night.?Musculoskeletal:?Muscle aches?right biceps.?Painful joints?denies.?Sciatica?denies.?Weakness?denies.?Skin:?Itching?denies.?Rash?denies.?Skin lesion(s)?denies.?Neurologic:?Difficulty speaking?denies.?Dizziness?denies.?Headache?denies.?Low back pain?denies.?Psychiatric:?Depressed mood?denies.? * Medical History:? 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 He has no significant exposures. He is [...] - Allergyno[Allergies Verified] Objective: * Vitals:?Ht: 73, Wt:215, BMI: 28.36, BP:130/72, HR:79, Temp:98.3, Wt-k.52. * ???Past Orders: Lab:Comprehensive Met. Panel * Collection Date 06/18/2024 12/19/2023 06/28/2022 Collection Time 02:06 PM 03:37 PM 03:20 PM Order Date 06/18/2024 12/19/2023 06/28/2022 Sodium 141 (Ref Range: 135-145 mmol/L) 141 (Ref Range: 135-145 mmol/L) 140 (Ref Range: 135-145 mmol/L) Bilirubin Total 1.3?H (Ref Range: 0.0-1.0 mg/dL) 1.2?H (Ref Range: 0.0-1.0 mg/dL) 1.0 (Ref [...] mmol/L) Chloride 108 (Ref Range: 96-108 mmol/L) 109?H (Ref Range: 96-108 mmol/L) 104 (Ref Range: 96-108 mmol/L) Carbon Dioxide 26 (Ref Range: 22-29 mmol/L) 28 (Ref Range: 22-29 mmol/L) 27 (Ref Range: 22-29 mmol/L) Anion Gap 11?L (Ref Range: 12-20) 8?L (Ref Range: 12-20) 13 (Ref Range: 12-20) Blood Urea Nitrogen 18?H (Ref Range: 9-16 mg/dL) 16 (Ref Range: 9-16 mg/dL) 15 (Ref Range: 9-16 mg/dL) Creatinine 1.24 (Ref Range: 0.5-1.4 mg/dL) 1.14 (Ref Range: 0.5-1.4 mg/dL) 1.05 (Ref Range: 0.5-1.4 mg/dL) Estimated Glomerular Filt Rate 59 > 60 > 60 Glucose Random 132?H (Ref Range: 60-115 mg/dL) 99 (Ref Range: 60-115 mg/dL) 134?H (Ref Range: 60-115 mg/dL) Calcium 8.8 (Ref [...] (Ref Range: 4.8-10.8 X10*3/uL) Red Blood Count 4.44?L (Ref Range: 4.60-5.80 X10*6/uL) 4.56?L (Ref Range: 4.60-5.80 X10*6/uL) 4.63 (Ref Range: 4.60-5.80 X10*6/uL) Hemoglobin 14.3 (Ref Range: 14.0-18.0 g/dl) 14.4 (Ref Range: 14.0-18.0 g/dl) 14.2 (Ref Range: 14.0-18.0 g/dl) Hematocrit 40.8?L (Ref Range: 42.0-52.0 %) 42.2 (Ref Range: 42.0-52.0 %) 41.4?L (Ref Range: 42.0-52.0 %) Mean Corpuscular Volume [...] 14.2 (Ref Range: 11.0-16.0 %) Platelet Count 111?L (Ref Range: 160-400 X10*3/uL) 127?L (Ref Range: 160-400 X10*3/uL) 114?L (Ref Range: 160-400 X10*3/uL) Mean Platelet Volume [...] no acute distress, calm and relaxed, overweight, man.?HEAD:?atraumatic, normocephalic.?EYES:?eomi, perrla, anicteric, conjugate.?EARS:?normal.?NOSE:?septum intact.?ORAL CAVITY:?normal, unremarkable.?NECK/THYROID:?no jugular venous distention, no carotid bruit, thyroid normal.?LYMPH NODES:?no enlarged lymph nodes,spleen normal.?SKIN:?no suspicious lesions, anicteric.?HEART:?no clicks, gallops, murmurs, or rubs, regular rhythm, S1, S2 normal, no s3, or vascular bruits.?LUNGS:?clear to auscultation .?BREASTS:??no masses palpable bilaterally.?ABDOMEN:?bowel sounds normal, no ascites, no organomegaly, no mass, overweight.?RECTAL EXAM:?not examined.?MUSCULOSKELETAL:?extremities unremarkable, no clubbing, cyanosis or edema, Right biceps shortened, range of motion right elbow and right shoulder normal.?PERIPHERAL PULSES:?normal.?NEUROLOGIC:?alert and oriented, cranial nerves 2-12 grossly intact, deep tendon reflexes 2+ symmetrical, motor strength normal upper and lower extremities, sensory exam intact.?PSYCH:?alert, oriented.? Assessment: * Assessment: 1.?Thrombocytopenia - D69.6 (Primary)???Notes :His platelet count is 111,000. He has had no bleeding or transfusions. He will refrain from taking aspirin.This value will be followed.???2.?Varicose veins of bilateral lower extremities with other complications - I83.893???Notes :There has been no change in his problem and it does not require treatment at this time.???3.?Rupture of right biceps tendon, subsequent encounter - S46.211D???Notes :The area is now asymptomatic.???4.?Large granular lymphocyte disorder - C91.Z0???Notes :His blood work is now normal with normal differential while he is being treated for his HIV infection. There is no sign of a large cell lymphoma.???5.?Normochromic normocytic anemia - D64.9???Notes :His hematocrit is 41 and this problem has resolved.???6.?Human immunodeficiency virus [HIV] disease - B20???Notes :His HIV infection is well controlled and no change in his regimen is needed at this time.???7.?Overweight (BMI 25.0-29.9) - E66.3???Notes :His body mass index is 30, which is narrowing the obese range. We discussed his weight loss strategy.??? Plan: * Treatment: 2.?Normochromic normocytic a nemia?LAB: PROFILE, RANDOM (COMPREHENSIVE METABOLIC) ?LAB: CBC w DIFF 3.?Overweight (BMI 25.0-29.9 )?LAB: PROFILE, RANDOM (COMPREHENSIVE METABOLIC) ?LAB: CBC w DIFF * Procedure Codes:? * Preventive Medicine:? ??Counseling:?Care goal follow-up plan:?Counseling for abnormal BMI given?Yes ?Above Normal BMI Follow-up?Dietary needs education * Follow Up:?6 Months, In six months (Reason: ov review labs, Regular check-up) * Images: * Sign off status: Completed true * Provider:?Lio Puga MD Date:?05/2024 Generated for Roscoe vargas/Faxing/eTransmitting on:?12/18/2024 09:51 AM EDT History and Physical Notes * HPI (History of Present Illness) Category Sub-Category Detail Notes COVID-19 Screening Questions Have you had any new onset fever, chills, cough, congestion, sore throat, shortness of breath, muscle aches?: No Have you been exposed to the virus withi n the last 10 days?: No Have you travelled internationally in [facility] last 10 days?: No Have you been [...]
[2024-12-18 10:16] LABS: Alanine Aminotransferase 12 U/L (0-40); Albumin Level 3.9 g/dL (3.5-5.0); Alkaline Phosphatase 75 U/L (39-117); Anion Gap 7 (12-20); Aspartate Amino Transferase 22 U/L (5-37); Blood Urea Nitrogen 17 mg/dL (9-16); Calcium 8.7 mg/dL (8.4-10.2); Carbon Dioxide 26 mmol/L (22-29); Chloride 111 mmol/L (96-108); Estimated Glomerular Filt Rate > 60; Glucose Random 84 mg/dL (60-115); Potassium 4.3 mmol/L (3.3-5.1); Sodium 140 mmol/L (135-145); Total Protein 6.6 g/dL (6.5-8.0)
== END 2024-12-18 09:01 | disposition home or self-care (01) ==
LOC: HO.LAB 09:00
PROVIDERS: PCP Internal Medicine; Visit Provider Internal Medicine Medical Oncology
DX: D69.6 Thrombocytopenia, unspecified (principal); D64.9 Anemia, unspecified; E66.3 Overweight
CPT/HCPCS: 36415; 80053; 85025

== ENCOUNTER 2025-01-29 09:57 | Outpatient (REF) | payer MEDICARE, SELFPAY ==
--- OUTSIDE RECORDS SUMMARY | 2025-01-29 11:08 | XMS_ITS ---
Author Organization Lio Puga III, MD Address [address] [place] [address] Care Team Providers Care Sheetrock Applicator Name Role Phone Sudhakar Shepherd MD Primary Care Provider Unavailab Lio Aguilera Unavailable [phone] Allergies Allergen (clinical drug ingredient) Drug/Non Drug [...] Provider Diagnosis Lio Puga III, MD [address] [place] [address] [place] [address] 12/21/2023 Lio Puga Thrombocytopenia D69 .6 ; [...] labs Provider Name:Lio Puga, 06/21/2025 09:00:00 AM, [address] [place] [address], [address], Progress Notes * Deric POLODOB:[birth year] (63 yo M)Acc No.[id number]:12/21/2023 Progress Notes Patient:?Deric Polo Provider:?Lio Puga MD :1960???Age:63 Y???Sex:Male Sheldon e:12/21/2023 Address:[facility] [address], [address], [place], [place] Pcp:Sudhakar Shepherd MD Subjective: * Chief Complaints: [...] 1991repair right distal biceps tendon rupture, [facility] 2014repair 3 cm laceration upper lip [...] Tobacco Non-User?Aggressive non-smoker ???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 He has no significant exposures. He [...] Puga MD Date:?12/11 Generated for Roscoe vargas/Lesli/Gucci on:?01/29/2025 11:08 AM EDT History and Physical Notes * [...]
--- OUTSIDE RECORDS SUMMARY | 2025-01-29 11:09 | XMS_ITS ---
Author Organization Lio Puga III, MD Address [address] [facility] [place] [address] Care Team Providers Care Respiratory Therapist Name Role Phone Sudhakar Shepherd MD Primary Care Provider UnavailLio Damon [facility] [phone] Allergies Allergen (clinical drug ingredient) Drug/Non Drug [...] Date Provider Diagnosis Lio Puga III, MD [address] [place] [address] [place] [address] 06/20/2024 Lio Puga Thrombocytopenia D69 .6 ; [...] check-up Provider Name:Lio Puga, 06/21/2025 09:00:00 AM, [address] [place] [address] [address], [place], [address], Progress Notes * Deric POLODOB:[birth year] (63 yo M)Acc No.[id number]:06/20/2024 Progress Notes Patient:?Deric POLO Provider:?Lio Puga MD :1960???Age:63 Y???Sex:Male Sheldon e:06/20/2024 Address:[address] [place] [address], [address], [place], [place] Pcp:Sudhakar Shepherd MD Subjective: * Chief Complaints: [...] bleeding 1992repair right distal biceps tendon rupture, 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 He has no significant exposures. He is [...] Puga MD Date:?05/2024 Generated for Roscoe vargas/Faxing/eTransmitting on:?01/29/2025 11:08 AM EDT History and Physical Notes * HPI (History of Present Illness) Category Sub-Category Detail Notes COVID-19 Screening Questions Have you had any new onset fever, chills, cough, congestion, sore throat, shortness of breath, muscle aches?: No Have you been exposed to the virus withi n the last 10 days?: No Have you travelled internationally in [facility] last 10 days?: No Have you [...]
--- OUTSIDE RECORDS SUMMARY | 2025-01-29 11:09 | XMS_ITS | Patient Health Record ---
Author Organization Lio Puga III, MD Address [address] [place] [address] Care Team Providers Care Advertising Sales Associate Name Role Phone Sudhakar Shepherd MD Primary Care Provider Unavailab Lio Aguilera Unavailable [phone] Allergies Allergen (clinical drug ingredient) Drug/Non Drug Allergy documented on EMR Reaction Allergy Type Onset Date Status Tree Nuts anaphylaxis Allergy Active Results Component Value Reference Range Notes Complete Blood Count Auto Di ff Reviewed date:06/20/2024 10:24:49 AM Interpretation: Performing Lab:[facility], [address] [place] [phone] Notes/Report: White Blood Count 5.9 4.8-10.8 X10*3/uL [...] Panel Reviewed date:06/20/2024 10:24:49 AM Interpretation: Performing Lab:[address] [address] Notes/Report: Sodium 141 135-145 mmol/L Potassium 3.9 3.3-5.1 mmol/L Chloride 108 96-108 mmol/L Carbon Dioxide 26 22-29 mmol/L Anion Gap 11 12-20 Blood Urea Nitrogen 18 9-16 mg/dL Creatinine 1.24 0.5-1.4 mg/dL Estimated Glomerular Filt Rate 59 NOTE: For -French individuals, multiply the result by 1.210. Chronic [...] Complete Blood Count Auto Di ff Reviewed date:12/19/2024 11:00:06 AM Interpretation: Performing Lab:[facility], [address] [place] [phone] Notes/Report: White Blood Count 5.6 4.8-10.8 X10*3/uL [...] 0.000 0.0-0.012 X10*3/uL Comprehensive Met. Panel Reviewed date:12/19/2024 11:00:13 AM Interpretation: Performing Lab:[facility], [address] [place] [phone] Notes/Report: Sodium 140 135-145 mmol/L Potassium 4.3 3.3-5.1 mmol/L Chloride 111 96-108 mmol/L Carbon Dioxide 26 22-29 mmol/L Anion Gap 7 12-20 Blood Urea Nitrogen 17 9-16 mg/dL Creatinine 1.01 0.5-1.4 mg/dL Estimated Glomerular Filt Rate > 60 Chronic Kidney Disease: Estimated GFR < 60 mL/min/1.73m2 Severe Kidney Disease: Estimated GFR < 15 mL/min/1.73m2 Glucose Random 84 60-115 mg/dL Calcium 8.7 8.4-10.2 mg/dL Bilirubin Total 1.0 0.0-1.0 mg/dL Aspartate Amino Transferase 22 5-37 U/L Alanine Aminotransferase 12 0-40 U/L Total Protein 6.6 6.5-8.0 g/dL Albumin Level 3.9 3.5-5.0 g/dL Alkaline Phosphatase 75 39-117 U/L Reason For Referral No Information Medications Medication [...] nonsmoker Additional Findings: Tobacco Non-User Aggressive non-smoker Alcohol Screen Question Answer Notes Did you have a drink containing alcohol in the p ast year? No Points 0 Interpretation Negative Problems Problem Type SNOMED Code ICD Code Onset Dates Problem Status W/U Status Risk Notes Problem 362535403 Overweight (BMI 25.0-29.9) (E66.3) Active confirmed His body mass index is 30, which is narrowing the obese range. We discussed his weight loss strategy. Problem Thrombocytopenia (D69.6) Active confirmed His platelet count is 113,000. He has had no bleeding or transfusions. He will refrain from taking aspirin.This value will be followed. Problem 886291783 Human immunodeficiency virus [HIV] disease (B20) Active confirmed His HIV infection is well controlled and no change in his regimen is needed at this time. 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 Problem 03607869 Normochromic normocytic anemia (D64.9) Active confirmed His hematocrit is 41 and this problem has resolved. Problem 521248158 Rupture of right biceps tendon, subsequent encounter (S46.211D) Active confirmed The area is now asymptomatic. 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 There is no sign of a large cell lymphoma. Problem 15646469 Asymptomatic HIV infection (Z21) Active confirmed He remains under the care of infectious disease with good control of his infection. Vital Signs Heart Rate 69 /min 12/19/2024 Temperature 98.2 degrees Fahrenheit 12/19/2024 Blood pressure diastolic 80 mm Hg 12/19/2024 Height 73 in 12/19/2024 Blood pressure systolic 142 mm Hg 12/19/2024 Weight 206 lbs 12/19/2024 BMI 27.18 kg/m2 12/19/2024 Encounters Encounter Location Date Provider Diagnosis Lio Puga III, MD [address] [place] [address] [place] [address] 06/20/2024 Lio Puga Thrombocytopenia D69 .6 ; Varicose veins of bilateral lower extremities with other complications I83.893 ; Rupture of right biceps tendon, subsequent encounter S46.211D ; Large granular lymphocyte disorder C91.Z0 ; Normochromic normocytic anemia D64.9 ; Human immunodeficiency virus [HIV] disease B20 and Overweight (BMI 25.0-29.9) E66.3 Lio Puga III, MD [address] [place] [address] [place] [address] 12/19/2024 Lio Puga Thrombocytopenia D69 .6 ; [...] does not require treatment at this time. 12/19/2024 Thrombocytopenia (ICD-10 - D69.6) His platelet count is 113,000. He has had no bleeding or transfusions. He will refrain from taking aspirin.This value will be followed. 12/19/2024 Normochromic normocytic anemia (ICD-10 - D64.9) His hematocrit is 41 and this problem has resolved. 06/20/2024 Rupture of right biceps tendon, subsequent encounter (ICD-10 - S46.211D) The area is now asymptomatic. 12/19/2024 Overweight (BMI 25.0-29.9) (ICD-10 - E66.3) His body mass index is 30, which is narrowing the obese range. We discussed his weight loss strategy. 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 There is no sign of a large cell lymphoma. 12/19/2024 Large granular lymphocyte disorder (ICD-10 - [...] C) 06/29/2022 PROFILE, RANDOM (COMPREHENSIVE METABOLIC ) 05/26/2020 PROFILE, RANDOM (COMPREHENSIVE METABOLIC ) 12/19/2024 PROFILE, RANDOM (COMPREHENSIVE METABOLIC ) 04/23/2019 PROFILE, RANDOM (COMPREHENSIVE METABOLIC ) 12/21/2022 PROFILE, RANDOM (COMPREHENSIVE METABOLIC ) 12/21/2023 PROFILE, RANDOM (COMPREHENSIVE METABOLIC ) 06/29/2021 PROFILE, RANDOM (COMPREHENSIVE METABOLIC ) 05/23/2019 PROFILE, RANDOM (COMPREHENSIVE METABOLIC ) 06/22/2023 PROFILE, RANDOM (COMPREHENSIVE METABOLIC ) 06/20/2024 PROFILE, RANDOM (COMPREHENSIVE METABOLIC ) 11/22/2018 LDH 06/22/2023 CBC w DIFF 05/26/2020 CBC w DIFF 12/19/2024 CBC w DIFF 12/21/2022 CBC w DIFF 12/21/2023 CBC w DIFF 06/29/2021 CBC w DIFF 05/23/2019 CBC w DIFF 06/20/2024 CBC w DIFF 11/22/2018 CBC w DIFF 06/22/2023 CBC w DIFF 06/29/2022 CBC with MANUAL DIFFERENTIAL 04/23/2019 PLATELET COUNT 05/23/2019 SED RATE (ESR) 06/22/2023 Bone Marrow Biopsy and Aspiration 2018 Next Appt Details Provider Name:Lio Huffne, 06/21/2025 09:00:00 AM, [address] [place] [address] , [facility] [address]ita, [place], [address], Insurance Providers Payer Name Payer Address Payer Phone Subscriber Number Group Number Insured Name Patient Relationship to Insured Coverage Start Date Coverage End Date MEDICARE NGS [address] [facility] [place] [address] [id number] Deric Moore Self - patient is the insured [facility] [address] [place], [place] [id number] [phone] [id number] Deric Moore Self - patient is [...]
--- OUTSIDE RECORDS SUMMARY | 2025-01-29 11:09 | XMS_ITS ---
Author Organization Lio Puga III, MD Address [address] [address] Care Team Providers Care Access Service Representative Name Role Phone Sudhakar Shepherd MD Primary Care Provider Unavailab Lio Aguilera Unavailable [phone] Allergies Allergen (clinical drug ingredient) Drug/Non Drug [...] Date Provider Diagnosis Lio Puga III, MD [address] [place] [address] [place] [address] 12/19/2024 Lio Puga Thrombocytopenia D69 .6 ; [...] OV Provider Name:Lio Puga, 06/21/2025 09:00:00 AM, [address] [place] [address], [address], [address], Progress Notes * Deric POLODOB:[birth year] (64 yo M)Acc No.[id number]:12/19/2024 Progress Notes Patient:?Deric PLOO Provider:?Lio Puga MD :1960???Age:64 Y???Sex:Male Sheldon e:12/19/2024 Address:[address] [place] [address], [address], [facility] Pcp:Sudhakar Shepherd MD Subjective: * Chief Complaints: * ???HIV infectionHistory of t hrombocytopeniaLarge granular lymphocytesHistory of * HPI: ???COVID-19 Screening:? He returns every 6 months to monitor his platelets and lymphocytes and red blood cells.? Last visit he has been healthy and well.? He is compliant with all of his treatments.? He has had no fever or chills.? He has had no recent adenopathy or splenomegaly.? His blood work was reviewed with him in detail.? Processes were found.? There was no evidence of a large granular lymphocytic neoplasm. ?Questions?Have you had any new onset fever, chills, cough, congestion, sore throat, shortness of breath, muscle aches??No * ROS:?General/Constitutional:?pain?only normal aches and pains.?Chills?denies.?Fatigue?admits.?Fever?denies.?ENT:?Decreased hearing?denies.?Respiratory:?Cough?denies.?Cardiovascular:?Chest pain with exertion?denies.?Dyspnea on exertion?denies.?Shortness of breath?denies.?Gastrointestinal:?Constipation?occasional.?Decreased appetite?denies.?Diarrhea?denies.?Heartburn?denies.?Nausea?denies.?Rectal bleeding?denies.?Vomiting?denies.?Hematology:?bruising?denies.?petechiae?denies.?Swollen glands?none have been noted.?Genitourinary:?Frequent urination?once a night.?Musculoskeletal:?Muscle aches?denies.?Painful joints?denies.?Sciatica?denies.?Weakness?denies.?Skin:?Itching?denies.?Rash?denies.?Skin lesion(s)?denies.?Neurologic:?Difficulty speaking?denies.?Dizziness?denies.?Headache?denies.?Low back pain?denies.?Psychiatric:?Depressed mood?denies.? * Medical History:? 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 He has no significant exposures. He is [...] - Allergyno[Allergies Verified] Objective: * Vitals:?Ht: 73, Wt:206, BMI: 27.18, BP:142/80, HR:69, Temp:98.2, Wt-k.44. * ???Past Orders: Lab:Complete Blood Count Aut o Diff * Collection Date 12/18/2024 06/18/2024 12/19/2023 Collection Time 09:10 AM 02:06 PM 03:37 PM Order Date 12/18/2024 06/18/2024 12/19/2023 White Blood Count 5.6 (Ref Range: 4.8-10.8 X10*3/uL) 5.9 (Ref Range: 4.8-10.8 X10*3/uL) 7.0 (Ref Range: 4.8-10.8 X10*3/uL) Red Blood Count 4.45?L (Ref Range: 4.60-5.80 X10*6/uL) 4.44?L (Ref Range: 4.60-5.80 X10*6/uL) 4.56?L (Ref Range: 4.60-5.80 X10*6/uL) Hemoglobin 14.2 (Ref Range: 14.0-18.0 g/dl) 14.3 (Ref Range: 14.0-18.0 g/dl) 14.4 (Ref Range: 14.0-18.0 g/dl) Hematocrit 41.2?L (Ref Range: 42.0-52.0 %) 40.8?L (Ref Range: 42.0-52.0 %) 42.2 (Ref [...] 14.5 (Ref Range: 11.0-16.0 %) Platelet Count 113?L (Ref Range: 160-400 X10*3/uL) 111?L (Ref Range: 160-400 X10*3/uL) 127?L (Ref Range: 160-400 X10*3/uL) Mean Platelet Volume [...] Bilirubin Total 1.0 (Ref Range: 0.0-1.0 mg/dL) 1.3?H (Ref Range: 0.0-1.0 mg/dL) 1.2?H (Ref Range: 0.0-1.0 mg/dL) Aspartate Amino Transferase [...] mmol/L) 4.1 (Ref Range: 3.3-5.1 mmol/L) Chloride 111?H (Ref Range: 96-108 mmol/L) 108 (Ref Range: 96-108 mmol/L) 109?H (Ref Range: 96-108 mmol/L) Carbon Dioxide 26 (Ref Range: 22-29 mmol/L) 26 (Ref Range: 22-29 mmol/L) 28 (Ref Range: 22-29 mmol/L) Anion Gap 7?L (Ref Range: 12-20) 11?L (Ref Range: 12-20) 8?L (Ref Range: 12-20) Blood Urea Nitrogen 17?H (Ref Range: 9-16 mg/dL) 18?H (Ref Range: 9-16 mg/dL) 16 (Ref Range: 9-16 mg/dL) Creatinine 1.01 (Ref Range: 0.5-1.4 mg/dL) 1.24 (Ref Range: 0.5-1.4 mg/dL) 1.14 (Ref Range: 0.5-1.4 mg/dL) Estimated Glomerular Filt Rate > 60 59 > 60 Glucose Random 84 (Ref Range: 60-115 mg/dL) 132?H (Ref Range: 60-115 mg/dL) 99 (Ref Range: 60-115 mg/dL) Calcium 8.7 (Ref Range: 8.4-10.2 mg/dL) 8.8 (Ref Range: 8.4-10.2 mg/dL) 8.8 (Ref Range: 8.4-10.2 mg/dL) * Examination: ???General Examination: ?GENERAL APPEARANCE:?pleasant, well [...] examined.?MUSCULOSKELETAL:?extremities unremarkable, no clubbing, cyanosis or edema, Shortened right biceps muscle.?PERIPHERAL PULSES:?normal.?NEUROLOGIC:?alert and oriented, cranial nerves 2-12 grossly intact, deep tendon reflexes 2+ symmetrical, motor strength normal upper and lower extremities, sensory exam intact.?PSYCH:?alert, oriented.? Assessment: * Assessment: 1.?Thrombocytopenia - D69.6 (Primary)???Notes :His platelet count is 113,000. He has had no bleeding or transfusions. He will refrain from taking aspirin.This value will be followed.???2.?Normochromic normocytic anemia - D64.9???Notes :His hematocrit is 41 and this problem has resolved.???3.?Overweight (BMI 25.0-29.9) - E66.3???Notes :His body mass index is 30, which is narrowing the obese range. 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 There is no sign of a large cell lymphoma.??? Plan: * Treatment: * Procedure Codes:? * Preventive Medicine:? ??Counseling:?Care goal follow-up plan:?Counseling for abnormal BMI given?Yes ?Above Normal BMI Follow-up?Dietary management education, guidance, and counseling, Dietary needs education * Follow Up:?6 Months (Reason: OV) * Images: * Sign off status: Completed true * Provider:?Lio Puga MD Date:?05/2025 Generated for Roscoe vargas/Lesli/Shayneitting on:?01/29/2025 11:08 AM EDT History and Physical [...]
[2025-01-29 13:08] LABS: MANUAL DIFF FLAG NO
[2025-01-29 13:20] LABS: Basophils Absolute Auto 0.1 X10*3/uL (0.0-0.2); Basophils Percent Auto 1.1 % (0-2); Eosinophils Absolute Auto 0.1 X10*3/uL (0.0-0.4); Eosinophils Percent Auto 2.1 % (0-4); Hematocrit 42.7 % (42.0-52.0); Hemoglobin 14.8 g/dl (14.0-18.0); Imm Gran Abs Auto 0.02 X10*3/uL (0.00-0.03); Imm Gran Pct Auto 0.4 % (0.0-0.4); Lymphocytes Absolute Auto 1.5 X10*3/uL (1.2-4.9); Lymphocytes Percent Auto 27.7 % (20-40); Mean Corpuscular HGB Conc 34.7 g/dl (31.0-36.0); Mean Corpuscular Hemoglobin 31.7 pg (27.0-33.0); Mean Corpuscular Volume 91.4 fL (80.0-98.0); Mean Platelet Volume 12.4 fL (9.4-12.4); Monocytes Absolute Auto 0.4 X10*3/uL (0.1-1.2); Monocytes Percent Auto 7.3 % (2-11); Neutrophils Absolute Auto 3.2 x10*3/uL (2.0-8.3); Neutrophils Percent Auto 61.4 % (45-73); Platelet Count 111 X10*3/uL (160-400); Red Blood Count 4.67 X10*6/uL (4.60-5.80); Red Cell Distribution Width 14.9 % (11.0-16.0); White Blood Count 5.2 X10*3/uL (4.8-10.8)
[2025-01-29 13:51] LABS: Alanine Aminotransferase 14 U/L (0-40); Albumin Level 4.2 g/dL (3.5-5.0); Alkaline Phosphatase 69 U/L (39-117); Anion Gap 9 (12-20); Aspartate Amino Transferase 24 U/L (5-37); Bilirubin Total 1.7 mg/dL (0.0-1.0); Blood Urea Nitrogen 14 mg/dL (9-16); Calcium 8.6 mg/dL (8.4-10.2); Carbon Dioxide 26 mmol/L (22-29); Chloride 108 mmol/L (96-108); Cholesterol 131 mg/dL (<200); Estimated Glomerular Filt Rate > 60; Glucose Fasting 94 mg/dL (60-99); HDL Cholesterol 48 mg/dL (>40); LDL Cholesterol Calculated 73 mg/dL (<100); Potassium 3.9 mmol/L (3.3-5.1); Sodium 139 mmol/L (135-145); Triglycerides 50 mg/dL (<150)
[2025-01-29 14:11] LABS: Prostate Specific Antigen 0.53 ng/mL (<0.05-4.0)
== END 2025-01-29 09:58 | disposition home or self-care (01) ==
LOC: HO.HMGCLDS 09:57
PROVIDERS: PCP Internal Medicine; Visit Provider Internal Medicine
DX: E78.5 Hyperlipidemia, unspecified (principal); R53.83 Other fatigue; Z12.5 Encounter for screening for malignant neoplasm of prostate
CPT/HCPCS: 36415; 80053; 80061; 84153; 85025

== ENCOUNTER 2025-04-23 12:38 | Outpatient (AMB) | payer MEDICARE, SELFPAY ==
--- OUTSIDE RECORDS SUMMARY | 2023-12-21 06:15 | XMS_ITS ---
Author Organization Lio Puga III, MD Address [address] [place] [address] Care Team Providers Care Sausage Meat Trimmer Name Role Phone Sudhakar Shepherd MD Primary Care Provider Unavailab Lio Aguilera Unavailable [phone] Allergies Allergen (clinical drug ingredient) Drug/Non Drug [...] Date Provider Diagnosis Lio Puga III, MD [address] [place] [address] [place] [address] 12/21/2023 Lio Puga Thrombocytopenia D69 .6 ; [...] Months, Reason: ov review labs Provider Name:Lio Puga, 06/21/2025 09:00:00 AM, [address] [place] [address], [address], Progress Notes * Deric POLODOB:[birth year] (63 yo M)Acc No.[id number]:12/21/2023 Progress Notes Patient: Deric Guo Provider: Jonathan Puga MD :1960 A ge:63 Y S ex:Male Date:12/21/2023 Address:[address] [place] [address], [place], [place] Pcp:Sudhkaar Shepherd MD Subjective: * Chief Complaints: * [...] bleeding 1991repair right distal biceps tendon rupture, [facility] 2014repair 3 cm laceration upper lip without bleeding 2015biopsy of tongue 12/2018 * Hospitalization/Major Diagno stic [...] ggressive non-smoker 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 He has no significant exposures. He is [...] Puga MD Date: 0 12/21/2023 Generated for Printrolanda ng/Lesli/eTransmitting on: 0 04/23/2025 01:20 PM EDT History and Physical Notes * HPI (History of Present Illness) Category Sub-Category Detail Notes COVID-19 Screening Questions Have you had any new onset fever, chills, cough, congestion, sore throat, shortness of breath, muscle aches?: No Have you been exposed to the virus withi n the last 10 days?: No Have you travelled internationally in [facility] last 10 days?: No Have you been [...]
--- NOTE | 2025-04-23 13:11 | A.OFFVIS_ITS ---
Intake Visit Reasons: Lastse2018 Hallucinations Allergies nut - unspecified (nut) Allergy (Unknown, Unverified 05/29/20 15:38) HIVES, THROAT SWELLING Medication List - Last Reconciled 04/23/25 by Margaux Dey MD [id number] ala 50-200-25 mg (Biktarvy) 1 tab PO DAILY HPI Comments Details: This is a 64-year-old man, who is generally being in good health. He was in [place] in September 2018, and when he came back, he had some sort of an infectious process or virus. Thereafter, he started to have slowly progressive generalized weakness, fatigue, and start to feel that his balance which has improved. But, since then he has had persistent memory issues which have gotten worse. 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 He started to lose weight and has lost 50 pounds in the last 5 months. He also had some lesions in his tongue that were biopsied, which was benign, and a 2nd biopsy has been done recently. His weakness got progressively worse and he needed help to get up. When he stood up, he would feel that his legs would collapse under him and he was staggering. His thought that his speech was a little bit slurred also. He was transferred to [facility] and diagnosed as AIDS and HIV encephalitis.Has no memory of Drags left foot on walking. No longer needsa walker.. Loses train of thought. Has had a personality change [facility] Medical History (Updated 04/23/25 @ 13:22 by Margaux Dey MD) Encephalopathy HIV (human immunodeficiency virus infection) Review of Systems Const Details: Sleep:? Difficulty getting to sleep?denies.? Difficulty maintaining sleep?denies? .? Urge to move legs?denies.? Teeth grinding?denies.? Shouting or Kicking during sleep?denies.? Abnormal behavior during sleep?denies.? Excessive sleep?denies.? Snoring?denies.? Daytime sleepiness?denies.? ?? General/Constitutional:? Change in appetite?denies.? Chills?denies.? Fatigue?denies.? Fever?denies .? Weight gain?denies.? Weight loss?denies.? ?? Ophthalmologic:? Blurred vision?denies.? Diminished visual acuity?denies.? ?? ENT:? Stuffiness?denies.? Decreased hearing?denies.? Dry mouth?denies.? Ear pain?denies.? Nosebleed?denies.? Ringing in the ears?denies.? Sinus pain?denies .? Sore throat?denies.? Swollen glands?denies.? ?? Endocrine:? Cold intolerance?denies.? Excessive thirst?denies.? Frequent urination? denies.? Heat intolerance?denies.? ?? Respiratory:? Shortness of breath?denies.? Chest pain?denies.? Cough?denies.? ?? Breast:? Breast lump?denies.? Nipple discharge?denies.? ?? Cardiovascular:? Chest pain at rest?denies.? Chest pain with exertion?denies.? Claudication?denies.? Dizziness?denies.? Fluid accumulation in the legs?denies.? Irregular heartbeat?denies.? Palpitations?denies.? ?? Gastrointestinal:? Abdominal pain?denies.? Constipation?denies.? Diarrhea?denies.? Diffi culty swallowing?denies.? Heartburn?denies.? Nausea?denies.? Rectal bleeding? denies.? ?? Hematology:? Easy bruising?denies.? Prolonged bleeding?denies.? ?? Genitourinary:? Frequent urination?denies.? Urgency?denies.? Incontinence?denies.? Erectile Dysfunction?denies.? ?? Musculoskeletal:? Neck pain?denies.? Back pain?denies.? Muscle aches?denies.? Painful joints?denies.? Sciatica?denies.? Weakness?denies.? ?? Podiatric:? Difficulty walking?denies.? Foot numbness?denies.? ?? Neurologic:? Difficulty swallowing?denies.? Balance difficulty?admits.? Coordination? normal.? Difficulty speaking?denies.? Dizziness?denies.? Fainting?denies.? Gait abnormality?admits.? Headache?denies.? Loss of strength?denies.? Loss of use of extremity?denies.? Low back pain?denies.? Memory loss?admits.? Seizures?denies.? Tics?denies.? Tingling/Numbness?denies.? Transient loss of vision?denies.? Tremor?denies.? ?? Psychiatric:? Anxiety?denies.? Auditory/visual hallucinations?denies.? Delusions?denies .? Depressed mood?denies.? Stressors?denies.? Substance abuse?denies.? Suicidal thoughts?denies.? ?? Physical Exam Neuro Other: Neurological: ? Abnormal neurological findings:?Minimal ataxia of gait..? Mental Status:?alert and oriented X 3,?Normal attention, orientation, memory and affect.? Cranial Nerves:?Pupils are equal, round and reactive to light. Fundoscopy shows normal disc bilaterally. External occular muscles are intact. Visual barker are full, no ptosis. Face is symmetrical, no facial weakness or droop. Facial sensations are normal. Tongue protrudes in midline. Palate elevates symmetrically. Shoulder shrugging is normal..? Motor Examination:?Normal muscle tone, bulk and strength,?No atrophy or fasciculations,?No drift of the extended upper extremities,?Deep tendon reflexes are 2+?,?Plantars are flexor?.? Motor Strength:? Proximal Muscles (out of 5): ?5 ? Distal Muscles (out of 5): ?5 ? Neck Flexors (out of 5): ?5 ? Neck Extensors (out of 5): ?5 ? Deltoid (out of 5): ?5 ? Biceps (out of 5): ?5 ? Triceps (out of 5): ?5 ? Serratus Anterior (out of 5): ?5 ? Wrist Extensors (out of 5): ?5 ? APB (out of 5): ?5 ? Finger Spread (out of 5): ?5 ? Ileopsoas (out of 5): ?5 ? Quadriceps (out of 5): ?5 ? Hamstrings (out of 5): ?5 ? Tibialis Anterior (out of 5): ?5 ? Peronei (out of 5): ?5 ? EDB (out of 5): ?5 ? Gastrocnemius (out of 5): ?5 ? Straight Leg Raising:?90 degrees.? Sensory Exam:?Normal light touch, temperature, pinprick, vibration and joint-position sensations?,?Rhomberg sign is absent.? Coordination:?no ataxia,?no titubation,?xdwkpb-ep-snpr, tckq-xykz-wqrx test and rapid alternating movements were normal.? Gait Exam:?Within normal limits.? Cerebellar Signs:?Kjgnfx-fr-spqq and wxor-sn-ddao is normal,?no dysdiadochokinesia?.? Extrapyramidal System:?No tremor, rigidity with normal facial expressions,?No bradykinesia, no bradyphrenia. Normal arm swing and posture. No propulsion or retropulsion.? Speech:?Normal,?no dysphasia or dysarthria..? Mini Mental Status Exam: ? Level of Consciousness:?Alert.? Orientation:?Knows correct year, month, date, day and season,?Knows correct city, county and state. Knows correct location and floor.? Registration:?Able to register 3 objects.? Attention:?Serial 7's performed accurately.? Recall:?Able to recall 3 out of 3 objects.? Language:?Normal spontaneous speech, fluency, repetition,naming, comprehension, reading and writing.? Total Score ?30/30.? General Examination: ? GENERAL APPEARANCE:?normal,?in no acute distress.? HEAD:?normocephalic,?atraumatic.? EYES:?sclera non-icteric,?conjunctiva clear.? EARS:?auditory canal clear,?tympanic membrane intact, clear.? NOSE:?no lesions.? ORAL CAVITY:?gums normal,?mucosa moist,?no lesions.? THROAT:?clear.? NECK/THYROID:?no cervical lymphadenopathy,?thyroid normal,?neck supple, full range of motion,?no carotid bruit.? SKIN:?no rashes,?no significant birthmarks.? HEART:?S1, S2 normal,?no murmurs.? LUNGS:?clear anteriorly and posteriorly.? CHEST:?no gross rib deformity,?clear to auscultation.? BACK:?normal exam of spine.? EXTREMITIES:?no edema.? PERIPHERAL PULSES:?normal.? PSYCH:?alert, oriented,?cognitive function intact,?cooperative with exam.? 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 Code(s): Z21 - Asymptomatic human immunodeficiency virus [HIV] infection status Category: Medical (2) MCI (mild cognitive impairment) with memory loss: Code(s): G31.84 - Mild cognitive impairment of uncertain or unknown etiology Category: Medical Plan MRI brain and EEG, screening labs Orders: Orders TSH reflex Free T4 Today G3.84 - Mild cognitive impairment of uncertain or unknown etiology EEG electroencephalogram Today G384 - Mild cognitive impairment of uncertain or unknown etiology MR head/brain wo con 4 Weeks G3.84 - Mild cognitive impairment of uncertain or unknown etiology, Z21 - Asymptomatic human immunodeficiency virus [HIV] infection status Vitamin B12 and Folate Today G3 - Mild cognitive impairment of uncertain or unknown etiology Coding Level of Care Code New Pt Level 5 (01803) Diagnoses HIV (human immunodeficiency virus infection) Z21 MCI (mild cognitive impairment) with memory loss G3
--- OUTSIDE RECORDS SUMMARY | 2025-04-23 13:20 | XMS_ITS | Clinical Summary ---
Author Organization [facility] Address [address] [place] [address] Phone Care Team Providers Care Rn Ante Partum Name Role Phone Sudhakar Shepherd MD Primary Care Provider [phone] Social History Tobacco Use Types Packs/Day Years Used Date Smoking Tobacco: Never Assessed Education Answer Date Recorded Are you interested in more education? Not on ky e 01/07/2023 Are you concerned about learning? Not on file 01/07/2023 No 01/07/2023 No 01/07/2023 Digital Access Answer Date Recorded No 02/07/2023 No 02/07/2023 No 02/07/2023 Reliable internet access at home? Not on file 02/07/2023 Device with a working camera? Not on file Sex and Gender Information Value Date Recorded Sex Assigned at Not on file Legal Sex Male 9:51 PM EDT Gender Identity Not on file Sexual Orientation Not on file Plan of Treatment Not on file Medical Devices Not on file Insurance CIGNA PPO CIGNA PPO CIGNA PPO CIGNA PPO CIGNA PPO CIGNA PPO CIGNA PPO CIG[employer] PPO CIGNA PPO Care Teams Rn Ante Partum Relationship Specialty Start Date End Date Sudhakar Shepherd MD [address] [place] [id number] PCP - General Internal Medicine 01/29/19 Additional Source Comments The information contained in this document represents components of the legal health record. It is not the complete legal health record.[facility]
--- OUTSIDE RECORDS SUMMARY | 2025-04-23 13:20 | XMS_ITS | Patient Health Record ---
Author Organization [facility] Address [address] [place] [address] Care Team Providers Care Batch Freezer Name Role Phone Joao (RETIRED) Sudhakar HAM Primary Care Provider Unavailable Christian Luis Jr Unavailable [phone] Allergies Allergen (clinical drug ingredient) Drug/Non Drug Allergy documented on EMR Reaction Allergy Type Onset Date Status nuts (uncoded) Unknown Allergy Activ e Reason For Referral No Information Medications Medication SIG (Take, Route, Fr equency, Duration) Notes Start Date End Date Status Biktarvy 50-200-25 MG 1 tablet Oral Once a day Active Multivitamin Adults - as directed Orally Active Advil 200 MG 1 tablet with food o r milk as needed Orally Three times a day Active Immunizations Vaccine Route Administration Date Status Comme nts Influenza Unknown 05/28/2019 Administered Social History Tobacco Use: Social History Observation Description Date Details (start date - stop date) Never Smoker NA - NA Tobacco Use/Smoking Question Answer Notes Patient is a nonsmoker Alcohol Screen Question Answer Notes Did you have a drink contain ing alcohol in the past year? Yes How often did you have a dri nk containing alcohol in the past year? Never (0 point) How many drinks did you have on a typical day when you were drinking in the past year? 1 or 2 drinks (0 point) Points 0 Interpretation Negative Section Notes: Nonsmoker; no sig alcohol Problems Problem Type SNOMED Code ICD Code Onset Dates Problem Status W/U Status Risk Notes Problem 750521713 Encounter for screening for malignant neoplasm of colon (Z12.11) Active confirmed Problem 398019553114024 Pre-procedural examination (Z01.818) Active confirmed Plan Of Treatment Future Test Test Name Order Date COLONOSCOPY 10/12/2019 Insurance Providers Payer Name Payer Address Payer Phone Subscriber Number Group Number Insured Name Patient Relationship to Insured Coverage Start Date Coverage End Date BREANN [address] [place] [address] [id number] ANGEL POLO Self - patient is the insured Medical (General) History Medical History History ICD Code Denies [place],DM,CVA,Lung disease,renal dise ase HIV/AIDS-diagnosed in 2019-- 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 Nimesh Fierro, ID specialist in [place] [facility] Surgical History Surgery Date(Month/Year) TORN RIGHT BICEP REPAIR
== END 2025-04-23 13:31 | disposition home or self-care (01) ==
LOC: HO.HSM 12:39
PROVIDERS: PCP Internal Medicine; Referring Provider Internal Medicine; Visit Provider Psychiatry & Neurology Neurology
DX: Z21 Asymptomatic human immunodeficiency virus [HIV] infection status (principal); G31.84 Mild cognitive impairment of uncertain or unknown etiology
CPT/HCPCS: 99204

== ENCOUNTER → 2025-04-23 12:38 | Outpatient (BNVA) | payer MEDICARE, SELFPAY | PROVIDERS: PCP Internal Medicine; Referring Provider Internal Medicine; Visit Provider Psychiatry & Neurology Neurology | DX: G31.84 Mild cognitive impairment of uncertain or unknown etiology (principal); Z21 Asymptomatic human immunodeficiency virus [HIV] infection status | CPT/HCPCS: 99202 ==

== ENCOUNTER 2025-05-02 08:23 | Outpatient (REF) | payer MEDICARE, SELFPAY ==
--- OUTSIDE RECORDS SUMMARY | 2023-12-21 06:15 | XMS_ITS ---
Author Organization Lio Puga III, MD Address [address] [place] [address] Care Team Providers Care On Air Talent Name Role Phone Sudhakar Shepherd MD Primary Care Provider Unavailab Lio Aguilera Unavailable [phone] Allergies Allergen (clinical drug ingredient) Drug/Non Drug [...] Date Provider Diagnosis Lio Puga III, MD [address] [place] [address] [place] [address] 12/21/2023 Lio Puga Thrombocytopenia D69 .6 ; [...] labs Provider Name:Lio Puga, 06/21/2025 09:00:00 AM, [address] [place] [address], [address], Progress Notes * Deric POLODOB:[birth year] (63 yo M)Acc No.[id number]:12/21/2023 Progress Notes Patient: Deric Guo Provider: Jonathan Puga MD :1960 A ge:63 Y S ex:Male Date:12/21/2023 Address:[address] [place] [address], [place], [place] Pcp:Sudhakar Shepherd MD Subjective: * Chief Complaints: [...] bleeding 1991repair right distal biceps tendon rupture, [facility] 2014repair 3 [...] ggressive non-smoker 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 He has no significant exposures. He is [...] Puga MD Date: 0 12/21/2023 Generated for Printi ng/Lesli/eTransmitting on: 0 05/02/2025 09:13 AM EDT History and Physical Notes * HPI (History of Present Illness) Category Sub-Category Detail Notes COVID-19 Screening Questions Have you had any new onset fever, chills, cough, congestion, sore throat, shortness of breath, muscle aches?: No Have you been exposed to the virus withi n the last 10 days?: No Have you travelled internationally in [facility] last 10 days?: No Have you [...]
--- NOTE | 2025-05-02 08:33 | EEG_ITS ---
Description: This is a routine waking and sleep EEG using the 10-20 electrode placement system. The waking background activity consists of low-voltage fast frequency seen diffusely intermixed with low-voltage posterior 9 hertz alpha frequency.? Drowsiness is characterized by diffuse theta slowing. During sleep symmetrical frontocentral sleep spindles develop over both hemispheres. Photic stimulation is without activation.? Hyperventilation produces no change in the background activity. No focal, lateralizing or paroxysmal discharges are seen. Impression: This waking and sleep EEG is within normal limits MTDD
--- OUTSIDE RECORDS SUMMARY | 2025-05-02 09:13 | XMS_ITS | Clinical Summary ---
Author Organization [facility] Address [address] [place] [address] Phone Care Team Providers Care American Studies Professor Name Role Phone Sudhakar Shepherd MD Primary Care Provider +1- [phone] Social History Tobacco Use Types Packs/Day Years [...] PPO CIGNA PPO CIGNA PPO Care Teams American Studies Professor Relationship Specialty Start Date End Date Sudhakar Shepherd MD [address] [place] [address] PCP - General Internal Medicine 01/29/19 Additional Source Comments The information contained in this document represents components of the legal health record. It is not the complete legal health record.[facility]
== END 2025-05-02 08:24 | disposition home or self-care (01) ==
LOC: HO.NEURO 08:23
PROVIDERS: PCP Internal Medicine; Visit Provider Psychiatry & Neurology Neurology
DX: G31.84 Mild cognitive impairment of uncertain or unknown etiology (principal)
CPT/HCPCS: 95816

== ENCOUNTER → 2025-05-02 08:33 | Outpatient (BNV) | payer MEDICARE, SELFPAY | PROVIDERS: PCP Internal Medicine; Visit Provider Psychiatry & Neurology Neurology | DX: G31.84 Mild cognitive impairment of uncertain or unknown etiology (principal) | CPT/HCPCS: 95816 ==

== ENCOUNTER 2025-05-21 16:25 | Outpatient (REF) | payer MEDICARE, SELFPAY ==
--- OUTSIDE RECORDS SUMMARY | 2023-12-21 06:15 | XMS_ITS ---
Author Organization Lio Puga III, MD Address [address] [facility] [place] [address] Care Team Providers Care Licensed Chemical Spray Technician Name Role Phone Sudhakar Shepherd MD Primary Care Provider Unavailab Lio Aguilera Unavailable [phone] Allergies Allergen (clinical drug ingredient) Drug/Non Drug [...] Date Provider Diagnosis Lio Puga III, MD [address] [place] [address] [place] [address] 12/21/2023 Lio Puga Thrombocytopenia D69 .6 ; [...] labs Provider Name:Lio Puga, 06/21/2025 09:00:00 AM, [address] [place] [address], [address], Progress Notes * Deric POLODOB:[birth year] (63 yo M)Acc No.[id number]:12/21/2023 Progress Notes Patient: Deric Guo Provider: Jonathan Puga MD :1960 A ge:63 Y S ex:Male Date:12/21/2023 Address:[address] [place] [address], [place], [place] Pcp:Sudhakar Shepherd MD Subjective: * Chief Complaints: [...] bleeding 1991repair right distal biceps tendon rupture, [facility] 2014repair 3 cm laceration upper [...] ggressive non-smoker 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 He has no significant exposures. He is [...] 12/21/2023 Generated for Printi ng/Lesli/eTransmitting on: 0 05/21/2025 06:14 PM EDT History and Physical Notes * HPI (History of Present Illness) Category Sub-Category Detail Notes COVID-19 Screening Questions Have you had any new onset fever, chills, cough, congestion, sore throat, shortness of breath, muscle aches?: No Have you been exposed to the virus withi n the last 10 days?: No Have you travelled internationally in [facility] last 10 days?: No Have you been [...]
--- OUTSIDE RECORDS SUMMARY | 2024-06-20 06:30 | XMS_ITS ---
Author Organization Lio Puga III, MD Address [address] [place] [address] Care Team Providers Care Internet Specialist Name Role Phone Sudhakar Shepherd MD Primary Care Provider UnavailLio [facility] [phone] Allergies Allergen (clinical drug ingredient) Drug/Non Drug [...] Date Provider Diagnosis Lio Puga III, MD [address] [place] [address] [place] [address] 06/20/2024 Lio Puga Thrombocytopenia D69 .6 ; [...] ov review labs, Regular check-up Provider Name:Lio Puga, 06/21/2025 09:00:00 AM, [address] [place] [address] [address], [place], [address], Progress Notes * Deric POLODOB:[birth year] (63 yo M)Acc No.[id number]:06/20/2024 Progress Notes Patient: Deric CAMPOS Provider: Jonathan Puga MD :1960 A ge:63 Y S ex:Male Date:06/20/2024 Address:[address] [place] [address] Rd, [address], [place], [place] Pcp:Sudhakar Shepherd MD Subjective: * Chief Complaints: [...] bleeding 1991repair right distal biceps tendon rupture, [facility] 2014repair 3 cm laceration upper lip [...] ggressive non-smoker 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 He has no significant exposures. He is to [place]. He is not aware of any family history of mental illness, substance use disorder, or addictions. * Medications: T akingCialis 10 MG Tablet 1 tablet as needed Orally Biktarvy 50-200-25 MG Tablet 1 tablet Orally Once a day Medication List reviewed and reconciled with the patientTaking Cialis 10 MG Tablet 1 tablet as [...] Jonathan Puga MD Date: Generated for Printi ng/Lesli/eTransmitting on: 0 05/21/2025 [...] days?: No Have you travelled internationally in last 10 days?: No Have you been [...]
--- OUTSIDE RECORDS SUMMARY | 2024-12-19 07:00 | XMS_ITS ---
Author Organization Lio Puga III, MD Address [address] [place] [address] Care Team Providers Care Executive Candidate Developer Name Role Phone Sudhakar Shepherd MD Primary Care Provider Unavailab Lio Aguilera Unavailable [phone] Allergies Allergen (clinical drug ingredient) Drug/Non Drug [...] Date Provider Diagnosis Lio Puga III, MD [address] [place] [address] [place] [address] 12/19/2024 Lio Puga Thrombocytopenia D69 .6 ; [...] Up: 6 Months, Reason: OV Provider Name:Lio Puga, 06/21/2025 09:00:00 AM, [address] [place] [address], [address], [address], Progress Notes * Deric POLODOB:[birth year] (64 yo M)Acc No.[id number]:12/19/2024 Progress Notes Patient: Deric CAMPOS Provider: Jonathan Puga MD :1960 A ge:64 Y S ex:Male Date:12/19/2024 Address:[facility] [address], [address], [facility] Pcp:Sudhakar Shepherd MD Subjective: * Chief Complaints: [...] bleeding 1991repair right distal biceps tendon rupture, [facility] 2014repair 3 cm laceration upper lip [...] ggressive non-smoker 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 He has no significant exposures. He is [...] MD Date: 0 12/19/2024 Generated for Roscoe vargas/Lesli/Shayneitting on: 0 05/21/2025 06:14 PM EDT History [...]
--- OUTSIDE RECORDS SUMMARY | 2025-05-02 07:44 | XMS_ITS ---
Author Organization Lio Puga III, MD Address [address] [place] [address] Care Team Providers Care Pug Mill Operator Helper Name Role Phone Sudhakar Shepherd MD Primary Care Provider Unavailab Lio Aguilera Unavailable [phone] REASON FOR VISIT HCC Risk Codes Social History Sex Assigned At : Social History Observation Description Sex Assigned At Male Encounters Encounter Location Date Provider Diagnosis Lio Puga III, MD [address] [place] [address] [place] [address] 05/02/2025 Lio Puga Plan Of Treatment Next Appt Details Provider Name:Lio Puga, 06/21/2025 09:00:00 AM, [address] [place] [address] [place], [address], Progress Notes * Deric POLODOB:[birth year] (64 yo M)Acc No.[id number]:05/02/2025 Patient: Chapo Deric QUINTANA :1960 A ge:64 Y S ex:Male Address:[address], [place], [address] * true * Date: Generated for Roscoe vargas/Sandovalg/eTransmitting on: 0 05/21/2025 06:13 PM EDT
--- NOTE | ~2025-05-21 | MR_ITS ---
EXAMINATION: MR BRAIN WITHOUT CONTRAST CLINICAL INFORMATION: Memory loss for years. Human immunodeficiency virus COMPARISON: None available. TECHNIQUE: MRI of the brain was obtained using routine sequences without contrast. Patient motion was detected evidence exam was repeated with delayed sequences which are patent. FINDINGS: There is no restriction of diffusion seen to suspect any acute ischemic changes. Scattered T2 signal changes are seen perpendicular to the lateral ventricle in the deep white matter of both cerebral hemispheres as well as patchy confluent hyperintense signal in the deep white matter adjacent to the posterior horns of lateral ventricle and both parietal lobes similar to previous exam. Previously visualized hyperdense signal in the posterior limb of bilateral internal capsules, bilateral middle cerebellar peduncles and bilateral cerebral hemispheres has resolved or improved. No echogenic susceptibility artifact to suggest acute or chronic hemorrhage. The lateral ventricles are symmetrical but enlarged slightly more prominent than the previous exam. Normal flow-void signal is seen in major cerebral vasculature. Visualized but limited visualization of orbits and paranasal sinuses are grossly unremarkable. There is mild right mastoid T2 signal likely inflammatory changes. Is unchanged to previous exam 2019 MR/MR head/brain wo con IMPRESSION: Bilateral periventricular white matter changes on the previous study. White matter changes in bilateral internal capsules, cerebellum and middle cerebellar peduncles have resolved or are improved. No acute intracranial findings or any major change from the last exam Electronically signed by: Petey Grey MD 05/22/2025 07:30 AM EDT
--- OUTSIDE RECORDS SUMMARY | 2025-05-21 18:14 | XMS_ITS | Clinical Summary ---
Author Organization [facility] Address [address] [place] [address] Phone Care Team Providers Care Teletype Or Varitype Keyboard Operator Name Role Phone Sudhakar Shepherd MD Primary Care Provider +1- [phone] Social History Tobacco Use Types Packs/Day Years [...] PPO CIGNA PPO CIGNA PPO Care Teams Teletype Or Varitype Keyboard Operator Relationship Specialty Start Date End Date Sudhakar Shepherd MD [address] [place] [address] PCP - General Internal Medicine 01/29/19 Additional Source Comments The information contained in this document represents components of the legal health record. It is not the complete legal health record.[facility]
--- OUTSIDE RECORDS SUMMARY | 2025-05-21 18:14 | XMS_ITS | Patient Health Record ---
Author Organization Lio Puga III, MD Address [address] [place] [address] Care Team Providers Care Certified Pharmacy Technician Name Role Phone Sudhakar Shepherd MD Primary Care Provider Unavailab Lio Aguilera Unavailable [phone] Allergies Allergen (clinical drug ingredient) Drug/Non Drug Allergy documented on EMR Reaction Allergy Type Onset Date Status Tree Nuts anaphylaxis Allergy Active Results Component Value Reference Range Notes Complete Blood Count Auto Di ff Reviewed date:06/20/2024 10:24:49 AM Interpretation: Performing Lab:[facility], [address] [place] [address] Notes/Report: White Blood Count 5.9 4.8-10.8 X10*3/uL [...] Panel Reviewed date:06/20/2024 10:24:49 AM Interpretation: Performing Lab:[address] [address] Notes/Report: Sodium 141 135-145 mmol/L Potassium 3.9 3.3-5.1 mmol/L Chloride 108 96-108 mmol/L Carbon Dioxide 26 22-29 mmol/L Anion Gap 11 12-20 Blood Urea Nitrogen 18 9-16 mg/dL Creatinine 1.24 0.5-1.4 mg/dL Estimated Glomerular Filt Rate 59 NOTE: For -Somali individuals, multiply the result by 1.210. Chronic [...] ff Reviewed date:12/19/2024 11:00:06 AM Interpretation: Performing Lab:[facility], [address] [place] [phone] Notes/Report: White Blood Count 5.6 4.8-10.8 X10*3/uL [...] Panel Reviewed date:12/19/2024 11:00:13 AM Interpretation: Performing Lab:[facility], [address] [place] [phone] Notes/Report: Sodium 140 135-145 mmol/L Potassium 4.3 [...] Problem Status W/U Status Risk Notes Problem 558264789 Overweight (BMI 25.0-29.9) (E66.3) Active confirmed His body mass index is 30, which is narrowing the obese range. We discussed his weight loss strategy. Problem Thrombocytopenia (648878100) Thrombocytopenia (D69.6) Active confirmed His platelet count is 113,000. He has had no bleeding or transfusions. He will refrain from taking aspirin.This value will be followed. Problem 590313985 Human immunodeficiency virus [HIV] disease (B20) Active confirmed His HIV infection is well controlled and no change in his regimen is needed at this time. Problem 14674179 Varicose veins o f bilateral lower extremities with other complications (I83.893) Active confirmed There has been no change in his problem and it does not require treatment at this time. Problem 75185443 Normochromic normocytic anemia (D64.9) Active confirmed His hematocrit is 41 and this problem has resolved. Problem 912430265 Rupture of right biceps tendon, subsequent encounter (S46.211D) Active confirmed The area is now asymptomatic. 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 There is no sign of a large cell lymphoma. Problem 08746000 Asymptomatic HIV infection (Z21) Active confirmed He [...] Date Provider Diagnosis Lio Puga III, MD [address] [place] [address] [place] [address] 06/20/2024 Lio Puga Thrombocytopenia D69 .6 ; Varicose veins of bilateral lower extremities with other complications I83.893 ; Rupture of right biceps tendon, subsequent encounter S46.211D ; Large granular lymphocyte disorder C91.Z0 ; Normochromic normocytic anemia D64.9 ; Human immunodeficiency virus [HIV] disease B20 and Overweight (BMI 25.0-29.9) E66.3 Lio Puga III, MD [address] [place] [address] [place] [address] 12/19/2024 Lio Puga Thrombocytopenia D69 .6 ; Normochromic normocytic anemia D64.9 ; Overweight (BMI 25.0-29.9) E66.3 and Large granular lymphocyte disorder C91.Z0 Lio Puga III, MD [address] [place] [address] [place] [address] 05/02/2025 Lio Puga Assessments Encounter Date Diagnosis (ICD Code) Assessment [...] C) 06/29/2022 PROFILE, RANDOM (COMPREHENSIVE METABOLIC ) 12/21/2023 PROFILE, RANDOM (COMPREHENSIVE METABOLIC ) 06/29/2021 PROFILE, RANDOM (COMPREHENSIVE METABOLIC ) 05/23/2019 PROFILE, RANDOM (COMPREHENSIVE METABOLIC ) 06/22/2023 PROFILE, RANDOM (COMPREHENSIVE METABOLIC ) 06/20/2024 PROFILE, RANDOM (COMPREHENSIVE METABOLIC ) 11/22/2018 PROFILE, RANDOM (COMPREHENSIVE METABOLIC ) 05/26/2020 PROFILE, RANDOM (COMPREHENSIVE METABOLIC ) 12/19/2024 PROFILE, RANDOM (COMPREHENSIVE METABOLIC ) 04/23/2019 PROFILE, RANDOM (COMPREHENSIVE METABOLIC ) 12/21/2022 LDH 06/22/2023 CBC w DIFF 05/26/2020 CBC [...] Aspiration 2018 Next Appt Details Provider Name:Lio Puga, 06/21/2025 09:00:00 AM, [address] [place] [address], [address], [address], Insurance Providers Payer Name Payer Address Payer Phone Subscriber Number Group Number Insured Name Patient Relationship to Insured Coverage Start Date Coverage End Date MEDICARE NGS [address] [place] [address] [id number] Deric Moore Self - patient is the insured [facility] [address] [place], [place] [id number] [phone] [id number] Deric Moore Self - patient is [...]
--- OUTSIDE RECORDS SUMMARY | 2025-05-21 18:14 | XMS_ITS | Patient Health Record ---
Author Organization [facility] Address [address] [place] [address] Care Team Providers Care Hog Feeder Name Role Phone Joao (RETIRED) Sudhakar HAM Primary Care Provider Unavailable Christian Luis Jr Unavailable Allergies Allergen (clinical drug ingredient) Drug/Non [...] Problem Status W/U Status Risk Notes Problem 829401125 Encounter for screening for malignant neoplasm of colon (Z12.11) Active confirmed Problem 557129510945940 Pre-procedural examination (Z01.818) Active confirmed Plan Of Treatment Future Test Test Name Order Date COLONOSCOPY 10/12/2019 Insurance Providers Payer Name Payer Address Payer Phone Subscriber Number Group Number Insured Name Patient Relationship to Insured Coverage Start Date Coverage End Date BREANN [address] [place] [address] [id number] ANGEL POLO Self - patient is the insured Medical (General) History Medical History History ICD Code Denies [place],DM,CVA,Lung disease,renal dise ase HIV/AIDS-diagnosed in 2019-- 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 Nimesh Fierro, ID specialist in [place] Surgical History Surgery Date(Month/Year) TORN RIGHT BICEP REPAIR
== END 2025-05-21 16:26 | disposition home or self-care (01) ==
LOC: HO.MRI 16:25
PROVIDERS: Visit Provider Psychiatry & Neurology Neurology
DX: G31.84 Mild cognitive impairment of uncertain or unknown etiology (principal); Z21 Asymptomatic human immunodeficiency virus [HIV] infection status
CPT/HCPCS: 70551

== ENCOUNTER → 2025-05-21 16:33 | Outpatient (BNV) | payer MEDICARE, SELFPAY | PROVIDERS: Visit Provider Radiology Diagnostic Radiology | DX: R90.82 White matter disease, unspecified (principal) | CPT/HCPCS: 70551 ==

== ENCOUNTER 2025-06-21 09:34 | Outpatient (REF) | payer MEDICARE, SELFPAY ==
--- OUTSIDE RECORDS SUMMARY | 2023-12-21 06:15 | XMS_ITS ---
Author Organization Lio Puga III, MD Address [address] [place] [address] Care Team Providers Care Pharmaceutical Worker Name Role Phone Jona, Kartik Primary Care Provider Dr. Lio Herrera III Unavailable [phone] Allergies Allergen (clinical drug ingredient) Drug/Non Drug Allergy documented on EMR Reaction Allergy Type Onset Date Status Tree Nuts anaphylaxis Allergy Active REASON FOR VISIT Anemia, HIV infection, Thrombocytopenia, Varicose, Obesity Medications Medication SIG (Take, Route, Fr equency, Duration) Notes Start Date End Date Status Cialis 10 MG 1 tablet as needed Orally Active Biktarvy 50-200-25 MG 1 tablet Orally Once a day Active Social History Tobacco Use: Social History Observation Description Date Details (start date - stop date) Never Smoker NA - NA Sex Assigned At : Social History Observation Description Sex Assigned At Male Tobacco Use/Smoking Question Answer Notes Patient is a nonsmoker Additional Findings: Tobacco Non-User Aggressive non-smoker Vital Signs Temperature 99.00 degrees Fahrenheit 024 Blood pressure systolic 137 mm Hg 12/21/19 24 Blood pressure diastolic 83 mm Hg 024 Heart Rate 74 /min 12/21/2023 Height 73 in 12/21/2023 Weight 226 lbs 12/21/2023 BMI 29.81 kg/m2 12/21/2023 Encounters Encounter Location Date Provider Diagnosis Lio Puga III, MD [address] [place] [address] [place] [address] 12/21/2023 Lio Puga Thrombocytopenia D69 .6 ; Normochromic normocytic anemia D64.9 ; Large granular lymphocyte disorder C91.Z0 and Varicose veins of bilateral lower extremities with other complications I83.893 Assessments Encounter Date Diagnosis (ICD Code) Assessment Notes Treat ment Notes Treatment Clinical Notes 12/21/2023 Thrombocytopenia (ICD-10 - D69.6) His platelet count is 127,000. He has had no bleeding or transfusions. He will refrain from taking aspirin. 12/21/2023 Normochromic normocytic anemia (ICD-10 - D64.9) His hematocrit is 42.2 and this problem has resolved. 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 There is no sign of a large cell lymphoma. 12/21/2023 Varicose veins of bilateral lower extremities with other complications (ICD-10 - I83.893) There has been no change in his problem and it does not require treatment at this time. Plan Of Treatment Medication Medication Name Sig Start Date Stop Date Notes Cialis 10 MG 1 tablet as needed Orally Biktarvy 50-200-25 MG 1 tablet Orally Once a day Pending Test Test Name Order Date PROFILE, RANDOM (COMPREHENSIVE METABOLIC ) 12/21/2023 CBC w DIFF 12/21/2023 Next Appt Details Follow Up: 6 Months, Reason: ov review labs Provider Name:Lio Puga , 12/20/2025 09:00:00 AM, [address] [place] [address], [address], Progress Notes * Deric POLODOB:[birth year] (63 yo M)Acc No.[id number]:12/21/2023 Progress Notes Patient: Deric Guo Tex Provider: Jonathan Puga MD :1960 A ge:63 Y S ex:Male Date:12/21/2023 Address:[address] [place] [address], [address], [facility] Pcp:Sudhakar Shepherd MD Subjective: * Chief Complaints: * A nemiaHIV infectionThrombocytopeniaVaricoseObesity * HPI: C OVID-19 Screening: He has lost 5 pounds in the longer obese. His HIV titers are negative. He is compliant with his medication. He is treated by a Dr. Fierro. He has had no blood transfusions mcgarry episodes of bleeding. His blood workk was reviewed with him. Feels healthy and well today. Questions H ave you experienced fever, chills, cough, sore throat, shortness of breath, difficulty breathing, muscle aches, loss of taste or smell? N o H ave you been exposed to the virus within the last 10 days? N o H ave you travelled internationally in the last 10 days? N o H ave you been exposed to COVID-19 in the past? Y es * ROS: G eneral/Constitutional: pain o nly normal aches and pains. C hills d enies.?Fatigue a dmits. F ever d enies. E NT: Decreased hearing d enies. R espiratory: Cough d enies. C ardiovascular: Chest pain with exertion d enies. D yspnea on exertion?denies. S hortness of breath d enies. G astrointestinal: Constipation o ccasional. D ecreased appetite d enies. D iarrhea d enies. H eartburn d enies. N ausea d enies. R ectal bleeding d enies. V omiting d enies. H ematology: bruising d enies. p etechiae d enies. S wollen glands n one have been noted. G enitourinary: Frequent urination o nce a night. M usculoskeletal: Muscle aches d enies. P ainful joints d enies. S ciatica d enies. W eakness d enies. S kin: Itching d enies. R krystina d enies. S kin lesion(s)?denies. N eurologic: Difficulty speaking d enies. D izziness d enies.?Headache d enies. L ow back pain d enies. P sychiatric: Depressed mood d enies. * Medical History: * Surgical History: f ull dental extractions without unusual bleeding Vasectomy without bleeding 1991repair right distal biceps tendon rupture, [facility] 2014repair 3 cm laceration upper lip without bleeding 2014biopsy of tongue 12/2018 * Hospitalization/Major Diagno stic Procedure: p neumonia and dehydratioin 12/2018 * Family History: F ather: 63 yrs, Lung cancer spread to brain, diagnosed with Cancer. M other: 67 yrs, alzheimers. 1 sister(s) . 2 son(s) , 1 daughter(s) . . He has 3 children, 2 sons and 1 daughter who are healthy and well. There is no family history of bleeding disorders. 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 He has no significant exposures. He is to [place]. He is not aware of any family history of mental illness, substance use disorder, or addictions. * Medications: T akingCialis 10 MG Tablet 1 tablet as needed Orally Biktarvy 50-200-25 MG Tablet 1 tablet Orally Once a dayTaking Cialis 10 MG Tablet 1 tablet as needed Orally Taking Biktarvy 50-200-25 MG Tablet 1 tablet Orally Once a dayDiscontinuedZyrTEC Allergy 10 MG Tablet 1 tablet Orally Once a dayAdvil 200 MG Tablet 1 tablet with food or milk as needed Orally Three times a dayMedication List reviewed and reconciled with the patientDiscontinued ZyrTEC Allergy 10 MG Tablet 1 tablet Orally Once a dayDiscontinued Advil 200 MG Tablet 1 tablet with food or milk as needed Orally Three times a dayMedication List reviewed and reconciled with the patient * Allergies: T ree Nuts: anaphylaxis - Allergyno[Allergies Verified] Objective: * Vitals: H t: 73, Wt:226, BMI:29.81, BP:137/83, HR:74, Temp:99.00, Wt-k.51. * P ast Orders: L ab:Lactate Dehydrogenase (Order Date - 12/19/2023) (Collection Date - 12/19/2023) Value Reference Range Lactate Dehydrogenase 174 118-273 - U/L Lab:Comprehensive Met. Panel * Order Date 12/19/2023 06/28/2022 06/29/2021 Sodium 141 (Ref Range: 135-145 mmol/L) 140 (Ref Range: 135-145 mmol/L) 140 (Ref Range: 135-145 mmol/L) Bilirubin Total 1.2 H (Ref Range: 0.0-1.0 mg/dL) 1.0 (Ref Range: 0.0-1.0 mg/dL) 0.8 (Ref Range: 0.0-1.0 mg/dL) Aspartate Amino Transferase 18 (Ref Range: 5-37 U/L) 17 (Ref Range: 5-37 U/L) 15 (Ref Range: 5-37 U/L) Alanine Aminotransferase 15 (Ref Range: 0-40 U/L) 10 (Ref Range: 0-40 U/L) 8 (Ref Range: 0-40 U/L) Total Protein 6.8 (Ref Range: 6.5-8.0 g/dL) 6.6 (Ref Range: 6.5-8.0 g/dL) 7.0 (Ref Range: 6.5-8.0 g/dL) Albumin Level 4.0 (Ref Range: 3.5-5.0 g/dL) 4.1 (Ref Range: 3.5-5.0 g/dL) 4.2 (Ref Range: 3.5-5.0 g/dL) Alkaline Phosphatase 72 (Ref Range: 39-117 U/L) 68 (Ref Range: 39-117 U/L) 76 (Ref Range: 39-117 U/L) Potassium 4.1 (Ref Range: 3.3-5.1 mmol/L) 4.2 (Ref Range: 3.3-5.1 mmol/L) 4.4 (Ref Range: 3.3-5.1 mmol/L) Chloride 109 H (Ref Range: 96-108 mmol/L) 104 (Ref Range: 96-108 mmol/L) 107 (Ref Range: 96-108 mmol/L) Carbon Dioxide 28 (Ref Range: 22-29 mmol/L) 27 (Ref Range: 22-29 mmol/L) 26 (Ref Range: 22-29 mmol/L) Anion Gap 8 L (Ref Range: 12-20) 13 (Ref Range: 12-20) 11 L (Ref Range: 12-20) Blood Urea Nitrogen 16 (Ref Range: 9-16 mg/dL) 15 (Ref Range: 9-16 mg/dL) 18 H (Ref Range: 9-16 mg/dL) Creatinine 1.14 (Ref Range: 0.5-1.4 mg/dL) 1.05 (Ref Range: 0.5-1.4 mg/dL) 1.19 (Ref Range: 0.5-1.4 mg/dL) Estimated Glomerular Filt Rate > 60 > 60 > 60 Glucose Random 99 (Ref Range: 60-115 mg/dL) 134 H (Ref Range: 60-115 mg/dL) 89 (Ref Range: 60-115 mg/dL) Calcium 8.8 (Ref Range: 8.4-10.2 mg/dL) 8.5 (Ref Range: 8.4-10.2 mg/dL) 8.9 (Ref Range: 8.4-10.2 mg/dL) ???Lab:Erythrocyte Sedimentation Rate (Order Date - 12/19/2023) (Collection Date - 12/19/2023)?ValueReference Range?Erythrocyte Sedimentation Rate2 0-15 - MM/HR * Lab:Complete Blood Count Aut o Diff * Order Date 12/19/2023 12/21/2022 06/28/2022 White Blood Count 7.0 (Ref Range: 4.8-10.8 X10*3/uL) 5.6 (Ref Range: 4.8-10.8 X10*3/uL) 5.5 (Ref Range: 4.8-10.8 X10*3/uL) Red Blood Count 4.56 L (Ref Range: 4.60-5.80 X10*6/uL) 4.63 (Ref Range: 4.60-5.80 X10*6/uL) 4.31 L (Ref Range: 4.60-5.80 X10*6/uL) Hemoglobin 14.4 (Ref Range: 14.0-18.0 g/dl) 14.2 (Ref Range: 14.0-18.0 g/dl) 13.5 L (Ref Range: 14.0-18.0 g/dl) Hematocrit 42.2 (Ref Range: 42.0-52.0 %) 41.4 L (Ref Range: 42.0-52.0 %) 40.0 L (Ref Range: 42.0-52.0 %) Mean Corpuscular Volume 92.5 (Ref Range: 80.0-98.0 fL) 89.4 (Ref Range: 80.0-98.0 fL) 92.8 (Ref Range: 80.0-98.0 fL) Mean Corpuscular Hemoglobin 31.6 (Ref Range: 27.0-33.0 pg) 30.7 (Ref Range: 27.0-33.0 pg) 31.3 (Ref Range: 27.0-33.0 pg) Mean Corpuscular HGB Conc 34.1 (Ref Range: 31.0-36.0 g/dl) 34.3 (Ref Range: 31.0-36.0 g/dl) 33.8 (Ref Range: 31.0-36.0 g/dl) Red Cell Distribution Width 14.5 (Ref Range: 11.0-16.0 %) 14.2 (Ref Range: 11.0-16.0 %) 14.3 (Ref Range: 11.0-16.0 %) Platelet Count 127 L (Ref Range: 160-400 X10*3/uL) 114 L (Ref Range: 160-400 X10*3/uL) 112 L (Ref Range: 160-400 X10*3/uL) Mean Platelet Volume 12.0 (Ref Range: 9.4-12.4 fL) 11.8 (Ref Range: 9.4-12.4 fL) 11.5 (Ref Range: 9.4-12.4 fL) Neutrophils Percent Auto 67.1 (Ref Range: 45-73 %) 56.7 (Ref Range: 45-73 %) 62.1 (Ref Range: 45-73 %) Imm Gran Pct Auto 0.3 (Ref Range: 0.0-0.4 %) 0.2 (Ref Range: 0.0-0.4 %) 0.4 (Ref Range: 0.0-0.4 %) Lymphocytes Percent Auto 22.1 (Ref Range: 20-40 %) 33.0 (Ref Range: 20-40 %) 24.9 (Ref Range: 20-40 %) Monocytes Percent Auto 7.5 (Ref Range: 2-11 %) 6.5 (Ref Range: 2-11 %) 7.7 (Ref Range: 2-11 %) Eosinophils Percent Auto 2.3 (Ref Range: 0-4 %) 2.9 (Ref Range: 0-4 %) 4.0 (Ref Range: 0-4 %) Basophils Percent Auto 0.7 (Ref Range: 0-2 %) 0.7 (Ref Range: 0-2 %) 0.9 (Ref Range: 0-2 %) NRBC Pct Auto 0.0 (Ref Range: 0.0-0.2 /100WBC) 0.0 (Ref Range: 0.0-0.2 /100WBC) 0.0 (Ref Range: 0.0-0.2 /100WBC) Neutrophils Absolute Auto 4.7 (Ref Range: 2.0-8.3 x10*3/uL) 3.2 (Ref Range: 2.0-8.3 x10*3/uL) 3.4 (Ref Range: 2.0-8.3 x10*3/uL) Imm Gran Abs Auto 0.02 (Ref Range: 0.00-0.03 X10*3/uL) 0.01 (Ref Range: 0.00-0.03 X10*3/uL) 0.02 (Ref Range: 0.00-0.03 X10*3/uL) Lymphocytes Absolute Auto 1.5 (Ref Range: 1.2-4.9 X10*3/uL) 1.8 (Ref Range: 1.2-4.9 X10*3/uL) 1.4 (Ref Range: 1.2-4.9 X10*3/uL) Monocytes Absolute Auto 0.5 (Ref Range: 0.1-1.2 X10*3/uL) 0.4 (Ref Range: 0.1-1.2 X10*3/uL) 0.4 (Ref Range: 0.1-1.2 X10*3/uL) Eosinophils Absolute Auto 0.2 (Ref Range: 0.0-0.4 X10*3/uL) 0.2 (Ref Range: 0.0-0.4 X10*3/uL) 0.2 (Ref Range: 0.0-0.4 X10*3/uL) Basophils Absolute Auto 0.1 (Ref Range: 0.0-0.2 X10*3/uL) 0.0 (Ref Range: 0.0-0.2 X10*3/uL) 0.1 (Ref Range: 0.0-0.2 X10*3/uL) NRBC Abs Auto 0.000 (Ref Range: 0.0-0.012 X10*3/uL) 0.000 (Ref Range: 0.0-0.012 X10*3/uL) 0.000 (Ref Range: 0.0-0.012 X10*3/uL) * Examination: G eneral Examination: GENERAL APPEARANCE: p leasant, well nourished, well developed, in no acute distress, calm and relaxed , overweight , man. HEAD: a traumatic, normocephalic. EYES: e martita, perrla, anicteric, conjugate. EARS: n ormal. NOSE: s eptum intact. ORAL CAVITY: n ormal, unremarkable. NECK/THYROID: n o jugular venous distention, no carotid bruit, thyroid normal. LYMPH NODES: n o enlarged lymph nodes,spleen normal. SKIN: n o suspicious lesions, anicteric. HEART: n o clicks, gallops, murmurs, or rubs, regular rhythm, S1, S2 normal, no s3, or vascular bruits. LUNGS: c lear to auscultation . BREASTS: no masses palpable bilaterally. ABDOMEN: b owel sounds normal, no ascites, no organomegaly, no mass , overweight. RECTAL EXAM: n ot examined. MUSCULOSKELETAL: e xtremities unremarkable, no clubbing, cyanosis or edema. PERIPHERAL PULSES: n ormal. NEUROLOGIC: a lert and oriented, cranial nerves 2-12 grossly intact, deep tendon reflexes 2+ symmetrical, motor strength normal upper and lower extremities, sensory exam intact. PSYCH: a lert, oriented. Assessment: * Assessment: 1. T hrombocytopenia - D69.6 (Primary), His platelet count is 127,000. He has had no bleeding or transfusions. He will refrain from taking aspirin. 2 . N ormochromic normocytic anemia - D64.9, His hematocrit is 42.2 and this problem has resolved. 3 . 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 There is no sign of a large cell lymphoma. 4 . V aricose veins of bilateral lower extremities with other complications - I83.893, There has been no change in his problem and it does not require treatment at this time. Plan: * Treatment: 2. N ormochromic normocytic anemia L AB: PROFILE, RANDOM (COMPREHENSIVE METABOLIC) L AB: CBC w DIFF * Procedure Codes: * Preventive Medicine: Counseling: C are goal follow-up plan: Counseling for abnormal BMI given Y es Above Normal BMI Follow-up D ietary management education, guidance, and counseling, Dietary needs education, Exercise promotion: strength training, Exercise promotion: stretching, Feeding regime, Giving encouragement to exercise, Lifestyle education regarding diet, Nutrition / feeding management, Nutrition therapy, Prescribed activity/exercise education, Prescribed diet education, Prescribed dietary intake, Special diet education, Weight monitoring , Intervention, Order not done: Medical or Other reason not done * Follow Up: 6 Months (Reason: ov review labs) * Images: * Sign off status: Completed true * Provider: Jonathan Puga MD Date: 0 12/21/2023 Generated for Roscoe ng/Sandovalg/eTransmitting on: 1 10:14 AM EDT History and Physical Notes * HPI (History of Present Illness) Category Sub-Category Detail Notes COVID-19 Screening Questions Have you had any new onset fever, chills, cough, congestion, sore throat, shortness of breath, muscle aches?: No Have you been exposed to the virus withi n the last 10 days?: No Have you travelled internationally in [facility] last 10 days?: No Have you been exposed to COVID-19 in the past?: Yes Examination Category Sub-Category Detail Notes General Examination GENERAL APPEARANCE: pleasant , well nourished, well developed, in no acute distress, calm and relaxed , overweight , man HEAD: atraumatic, normocep halic EYES: eomi, perrla, anicte lizeth, conjugate EARS: normal NOSE: septum intact NECK/THYROID: no jugular venous di stention, no carotid bruit, thyroid normal HEART: no clicks, gallops, murmurs, or rubs, regular rhythm, S1, S2 normal, no s3, or vascular bruits LUNGS: clear to auscultatio n ABDOMEN: bowel sounds normal, no ascites, no organomegaly, no mass , overweight NEUROLOGIC: alert and oriented, cranial nerves 2-12 grossly intact, deep tendon reflexes 2+ symmetrical, motor strength normal upper and lower extremities, sensory exam intact SKIN: no suspicious lesion s, anicteric PERIPHERAL PULSES: normal BREASTS: no masses palpable b ilaterally MUSCULOSKELETAL: extremities unremark able, no clubbing, cyanosis or edema LYMPH NODES: no enlarged lymph no ari,spleen normal RECTAL EXAM: not examined PSYCH: alert, oriented ORAL CAVITY: normal, unremarkable
--- OUTSIDE RECORDS SUMMARY | 2024-06-20 06:30 | XMS_ITS ---
Author Organization Lio Puga III, MD Address [address] [place] [address] Care Team Providers Care Ticket Dispenser Changer Name Role Phone Troy Tenorio Primary Care Provider Dr. Lio Herrera III Allergies Allergen (clinical drug ingredient) Drug/Non Drug Allergy documented on EMR Reaction Allergy Type Onset Date Status Tree Nuts anaphylaxis Allergy Active REASON FOR VISIT Thrombocytopenia, Right biceps tendon rupture, Varicose veins, Large granular lymphocytosis, Normochromic normocytic anemia, HIV-positive Medications Medication SIG (Take, Route, Fr equency, [...] Tobacco Non-User Aggressive non-smoker Vital Signs Temperature 98.3 degrees Fahrenheit 06/20/20 24 Blood pressure systolic 130 mm Hg 06/20/20 24 Blood pressure diastolic 72 mm Hg 024 Heart Rate 79 /min 06/20/2024 Height 73 in 06/20/2024 Weight 215 lbs 06/20/2024 BMI 28.36 kg/m2 06/20/2024 Encounters Encounter Location Date Provider Diagnosis Lio Puga III, MD [address] [place] [address] [place] [address] 06/20/2024 Lio Puga Thrombocytopenia D69 .6 ; Varicose veins of bilateral lower extremities with other complications I83.893 ; Rupture of right biceps tendon, subsequent encounter S46.211D ; Large granular lymphocyte disorder C91.Z0 ; Normochromic normocytic anemia D64.9 ; Human immunodeficiency virus [HIV] disease B20 and Overweight (BMI 25.0-29.9) E66.3 Assessments Encounter Date Diagnosis (ICD Code) Assessment Notes Treat ment Notes Treatment Clinical Notes 06/20/2024 Thrombocytopenia (ICD-10 - D69.6) His platelet count is 111,000. He has had no bleeding or transfusions. He will refrain from taking aspirin.This value will be followed. 06/20/2024 Varicose veins of bilateral lower extremities with other complications (ICD-10 - I83.893) There has been no change in his problem and it does not require treatment at this time. 06/20/2024 Rupture of right biceps tendon, subsequent encounter (ICD-10 - S46.211D) The area is now asymptomatic. 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 There is no sign of a large cell lymphoma. 06/20/2024 Normochromic normocytic anemia (ICD-10 - D64.9) His hematocrit is 41 and this problem has resolved. 06/20/2024 Human immunodeficien cy virus [HIV] disease (ICD-10 - B20) His HIV infection is well controlled and no change in his regimen is needed at this time. 06/20/2024 Overweight (BMI 25.0-29.9) (ICD-10 - E66.3) His body mass index is 30, which is narrowing the obese range. We discussed his weight loss strategy. Plan Of Treatment Medication Medication Name Sig Start Date Stop Date Notes Cialis 10 MG 1 tablet as needed Orally Biktarvy 50-200-25 MG 1 tablet Orally Once a day Pending Test Test Name Order Date PROFILE, RANDOM (COMPREHENSIVE METABOLIC ) 06/20/2024 CBC w DIFF 06/20/2024 Next Appt Details Follow Up: 6 Months, In six months, Reason: ov review labs, Regular check-up Provider Name:Lio Puga , 12/20/2025 09:00:00 AM, [address] [place] [address] [address], [place], [address], Progress Notes * Deric POLODOB:[birth year] (63 yo M)Acc No.[id number]:06/20/2024 Progress Notes Patient: Deric CAMPOS Provider: Jonathan Puga MD :1960 A ge:63 Y S ex:Male Date:06/20/2024 Address:[address] [place] [address], [address], [place], [place] Pcp:Sudhakar Shepherd MD Subjective: * Chief Complaints: * T hrombocytopeniaRight biceps tendon ruptureVaricose veinsLarge granular lymphocytosisNormochromic normocytic anemiaHIV-positive * HPI: C OVID-19 Screening: Questions H ave you experienced fever, chills, cough, sore throat, shortness of breath, difficulty breathing, muscle aches, loss of taste or smell? N o H ave you been exposed to the virus within the last 10 days? N o H ave you travelled internationally in the last 10 days? N o H ave you been exposed to COVID-19 in the past? N o * : The patient, a 63-year-old male, has been experiencing weight loss, which he attributes to his regular walking routine. He has been maintaining this routine for over a year and has noticed that if he skips a day, his pants feel tighter. He has lost 11 lbs since December. He also mentioned that he has been undetectable for HIV for a long time, with his current stage being under 20, which is considered truly undetectable. He has been taking medication for HIV, which he reports is working well for him. He also mentioned a torn biceps tendon in his right arm. The patient's has been sick recently, experiencing dizziness in the mornings and was hospitalized due to pneumonia. The patient himself has not started any new medications. Blood Sugar Level is 132. * ROS: G eneral/Constitutional: pain o nly [...] nce a night. M usculoskeletal: Muscle aches r ight biceps. P ainful joints d enies. S ciatica [...] bleeding 1991repair right distal biceps tendon rupture, [facility] 2014repair 3 cm laceration upper lip without bleeding 2014biopsy of tongue 12/2018No history * Hospitalization/Major Diagno stic Procedure: p neumonia and dehydratioin 12/2018No history * Family History: F ather: 63 yrs, Lung cancer spread to brain, diagnosed with Cancer. M other: 67 yrs, alzheimers. 1 sister(s) . 2 son(s) , 1 daughter(s) . . He has 3 children, 2 sons and 1 daughter who are healthy and well. There is no family history of bleeding disorders. 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 He has no significant exposures. He is to [place]. He is not aware of any family history of mental illness, substance use disorder, or addictions. * Medications: T akingCialis 10 MG Tablet 1 tablet as needed Orally Biktarvy 50-200-25 MG Tablet 1 tablet Orally Once a day Medication List reviewed and reconciled with the patientTa Cialis 10 MG Tablet 1 tablet as needed Orally Taking Biktarvy 50-200-25 MG Tablet 1 tablet Orally Once a day Medication List reviewed and reconciled with the patient * Allergies: T ree Nuts: anaphylaxis - Allergyno[Allergies Verified] Objective: * Vitals: H t: 73, Wt:215, BMI:28.36, BP:130/72, HR:79, Temp:98.3, Wt-k.52. * P ast Orders: Lab:Comprehensive Met. Panel * Collection Date 06/18/2024 12/19/2023 06/28/2022 Collection Time 02:06 PM 03:37 PM 03:20 PM Order Date 06/18/2024 12/19/2023 06/28/2022 Sodium 141 (Ref Range: 135-145 mmol/L) 141 (Ref Range: 135-145 mmol/L) 140 (Ref Range: 135-145 mmol/L) Bilirubin Total 1.3 H (Ref Range: 0.0-1.0 mg/dL) 1.2 H (Ref Range: 0.0-1.0 mg/dL) 1.0 (Ref Range: 0.0-1.0 mg/dL) Aspartate Amino Transferase 19 (Ref Range: 5-37 U/L) 18 (Ref Range: 5-37 U/L) 17 (Ref Range: 5-37 U/L) Alanine Aminotransferase 13 (Ref Range: 0-40 U/L) 15 (Ref Range: 0-40 U/L) 10 (Ref Range: 0-40 U/L) Total Protein 6.7 (Ref Range: 6.5-8.0 g/dL) 6.8 (Ref Range: 6.5-8.0 g/dL) 6.6 (Ref Range: 6.5-8.0 g/dL) Albumin Level 4.0 (Ref Range: 3.5-5.0 g/dL) 4.0 (Ref Range: 3.5-5.0 g/dL) 4.1 (Ref Range: 3.5-5.0 g/dL) Alkaline Phosphatase 72 (Ref Range: 39-117 U/L) 72 (Ref Range: 39-117 U/L) 68 (Ref Range: 39-117 U/L) Potassium 3.9 (Ref Range: 3.3-5.1 mmol/L) 4.1 (Ref Range: 3.3-5.1 mmol/L) 4.2 (Ref Range: 3.3-5.1 mmol/L) Chloride 108 (Ref Range: 96-108 mmol/L) 109 H (Ref Range: 96-108 mmol/L) 104 (Ref Range: 96-108 mmol/L) Carbon Dioxide 26 (Ref Range: 22-29 mmol/L) 28 (Ref Range: 22-29 mmol/L) 27 (Ref Range: 22-29 mmol/L) Anion Gap 11 L (Ref Range: 12-20) 8 L (Ref Range: 12-20) 13 (Ref Range: 12-20) Blood Urea Nitrogen 18 H (Ref Range: 9-16 mg/dL) 16 (Ref Range: 9-16 mg/dL) 15 (Ref Range: 9-16 mg/dL) Creatinine 1.24 (Ref Range: 0.5-1.4 mg/dL) 1.14 (Ref Range: 0.5-1.4 mg/dL) 1.05 (Ref Range: 0.5-1.4 mg/dL) Estimated Glomerular Filt Rate 59 > 60 > 60 Glucose Random 132 H (Ref Range: 60-115 mg/dL) 99 (Ref Range: 60-115 mg/dL) 134 H (Ref Range: 60-115 mg/dL) Calcium 8.8 (Ref Range: 8.4-10.2 mg/dL) 8.8 (Ref Range: 8.4-10.2 mg/dL) 8.5 (Ref Range: 8.4-10.2 mg/dL) * Lab:Complete Blood Count Aut o Diff * Collection Date 06/18/2024 12/19/2023 12/21/2022 Collection Time 02:06 PM 03:37 PM 10:33 AM Order Date 06/18/2024 12/19/2023 12/21/2022 White Blood Count 5.9 (Ref Range: 4.8-10.8 X10*3/uL) 7.0 (Ref Range: 4.8-10.8 X10*3/uL) 5.6 (Ref Range: 4.8-10.8 X10*3/uL) Red Blood Count 4.44 L (Ref Range: 4.60-5.80 X10*6/uL) 4.56 L (Ref Range: 4.60-5.80 X10*6/uL) 4.63 (Ref Range: 4.60-5.80 X10*6/uL) Hemoglobin 14.3 (Ref Range: 14.0-18.0 g/dl) 14.4 (Ref Range: 14.0-18.0 g/dl) 14.2 (Ref Range: 14.0-18.0 g/dl) Hematocrit 40.8 L (Ref Range: 42.0-52.0 %) 42.2 (Ref Range: 42.0-52.0 %) 41.4 L (Ref Range: 42.0-52.0 %) Mean Corpuscular Volume 91.9 (Ref Range: 80.0-98.0 fL) 92.5 (Ref Range: 80.0-98.0 fL) 89.4 (Ref Range: 80.0-98.0 fL) Mean Corpuscular Hemoglobin 32.2 (Ref Range: 27.0-33.0 pg) 31.6 (Ref Range: 27.0-33.0 pg) 30.7 (Ref Range: 27.0-33.0 pg) Mean Corpuscular HGB Conc 35.0 (Ref Range: 31.0-36.0 g/dl) 34.1 (Ref Range: 31.0-36.0 g/dl) 34.3 (Ref Range: 31.0-36.0 g/dl) Red Cell Distribution Width 14.5 (Ref Range: 11.0-16.0 %) 14.5 (Ref Range: 11.0-16.0 %) 14.2 (Ref Range: 11.0-16.0 %) Platelet Count 111 L (Ref Range: 160-400 X10*3/uL) 127 L (Ref Range: 160-400 X10*3/uL) 114 L (Ref Range: 160-400 X10*3/uL) Mean Platelet Volume 12.2 (Ref Range: 9.4-12.4 fL) 12.0 (Ref Range: 9.4-12.4 fL) 11.8 (Ref Range: 9.4-12.4 fL) Neutrophils Percent Auto 66.0 (Ref Range: 45-73 %) 67.1 (Ref Range: 45-73 %) 56.7 (Ref Range: 45-73 %) Imm Gran Pct Auto 0.3 (Ref Range: 0.0-0.4 %) 0.3 (Ref Range: 0.0-0.4 %) 0.2 (Ref Range: 0.0-0.4 %) Lymphocytes Percent Auto 23.9 (Ref Range: 20-40 %) 22.1 (Ref Range: 20-40 %) 33.0 (Ref Range: 20-40 %) Monocytes Percent Auto 6.3 (Ref Range: 2-11 %) 7.5 (Ref Range: 2-11 %) 6.5 (Ref Range: 2-11 %) Eosinophils Percent Auto 2.6 (Ref Range: 0-4 %) 2.3 (Ref Range: 0-4 %) 2.9 (Ref Range: 0-4 %) Basophils Percent Auto 0.9 (Ref Range: 0-2 %) 0.7 (Ref Range: 0-2 %) 0.7 (Ref Range: 0-2 %) NRBC Pct Auto 0.0 (Ref Range: 0.0-0.2 /100WBC) 0.0 (Ref Range: 0.0-0.2 /100WBC) 0.0 (Ref Range: 0.0-0.2 /100WBC) Neutrophils Absolute Auto 3.9 (Ref Range: 2.0-8.3 x10*3/uL) 4.7 (Ref Range: 2.0-8.3 x10*3/uL) 3.2 (Ref Range: 2.0-8.3 x10*3/uL) Imm Gran Abs Auto 0.02 (Ref Range: 0.00-0.03 X10*3/uL) 0.02 (Ref Range: 0.00-0.03 X10*3/uL) 0.01 (Ref Range: 0.00-0.03 X10*3/uL) Lymphocytes Absolute Auto 1.4 (Ref Range: 1.2-4.9 X10*3/uL) 1.5 (Ref Range: 1.2-4.9 X10*3/uL) 1.8 (Ref Range: 1.2-4.9 X10*3/uL) Monocytes Absolute Auto 0.4 (Ref Range: 0.1-1.2 X10*3/uL) 0.5 (Ref Range: 0.1-1.2 X10*3/uL) 0.4 (Ref Range: 0.1-1.2 X10*3/uL) Eosinophils Absolute Auto 0.2 (Ref Range: 0.0-0.4 X10*3/uL) 0.2 (Ref Range: 0.0-0.4 X10*3/uL) 0.2 (Ref Range: 0.0-0.4 X10*3/uL) Basophils Absolute Auto 0.1 (Ref Range: 0.0-0.2 X10*3/uL) 0.1 (Ref Range: 0.0-0.2 X10*3/uL) 0.0 (Ref Range: 0.0-0.2 X10*3/uL) NRBC Abs Auto 0.000 (Ref Range: 0.0-0.012 X10*3/uL) 0.000 (Ref Range: 0.0-0.012 X10*3/uL) 0.000 (Ref Range: 0.0-0.012 X10*3/uL) * Examination: G eneral Examination: GENERAL APPEARANCE: p leasant, well nourished, well developed, in no acute distress, calm and relaxed, overweight, man. HEAD: a traumatic, normocephalic. EYES: e [...] sounds normal, no ascites, no organomegaly, no mass, overweight. RECTAL EXAM: n ot examined. MUSCULOSKELETAL: e xtremities unremarkable, no clubbing, cyanosis or edema, Right biceps shortened, range of motion right elbow and right shoulder normal. PERIPHERAL PULSES: n ormal. NEUROLOGIC: a lert and oriented, cranial nerves 2-12 grossly intact, deep tendon reflexes 2+ symmetrical, motor strength normal upper and lower extremities, sensory exam intact. PSYCH: a lert, oriented. Assessment: * Assessment: 1. T hrombocytopenia - D69.6 (Primary) N otes :His platelet count is 111,000. He has had no bleeding or transfusions. He will refrain from taking aspirin.This value will be followed. 2 . V aricose veins of bilateral lower extremities with other complications - I83.893 N otes :There has been no change in his problem and it does not require treatment at this time. 3 . R upture of right biceps tendon, subsequent encounter - S46.211D ? N otes :The area is now asymptomatic. 4 . 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 There is no sign of a large cell lymphoma. 5 . N ormochromic normocytic anemia - D64.9 N otes :His hematocrit is 41 and this problem has resolved. 6 . H uman immunodeficiency virus [HIV] disease - B20 N otes :His HIV infection is well controlled and no change in his regimen is needed at this time. 7 . O verweight (BMI 25.0-29.9) - E66.3 N otes :His body mass index is 30, which is narrowing the obese range. We discussed his weight loss strategy. Plan: * Treatment: 2. N ormochromic normocytic anemia L AB: PROFILE, RANDOM (COMPREHENSIVE METABOLIC) L AB: CBC w DIFF 3. O verweight (BMI 25.0-29.9) L AB: PROFILE, RANDOM (COMPREHENSIVE METABOLIC) L AB: CBC w DIFF * Procedure Codes: * Preventive Medicine: Counseling: C are goal follow-up plan: Counseling for abnormal BMI given Y es Above Normal BMI Follow-up D ietary needs education * Follow Up: 6 Months, In six months (Reason: ov review labs, Regular check-up) * Images: * Sign off status: Completed true * Provider: Jonathan Puga MD Date: Generated for Printi ng/Fasamang/eTransmitting on: 10:14 AM EDT History and Physical Notes * HPI (History of Present Illness) Category Sub-Category Detail Notes COVID-19 Screening Questions Have you had any new onset fever, chills, cough, congestion, sore throat, shortness of breath, muscle aches?: No Have you been exposed to the virus withi n the last 10 days?: No Have you travelled internationally in [facility] last 10 days?: No Have you been exposed to COVID-19 in the past?: No Examination Category Sub-Category Detail Notes General Examination GENERAL APPEARANCE: pleasant , well nourished, well developed, in no acute distress, calm and relaxed, overweight, man HEAD: atraumatic, normocep halic EYES: eomi, perrla, anicte lizeth, conjugate EARS: normal NOSE: septum intact NECK/THYROID: no jugular venous di stention, no carotid bruit, thyroid normal HEART: no clicks, gallops, murmurs, or rubs, regular rhythm, S1, S2 normal, no s3, or vascular bruits LUNGS: clear to auscultatio n ABDOMEN: bowel sounds normal, no ascites, no organomegaly, no mass, overweight NEUROLOGIC: alert and oriented, cranial nerves 2-12 grossly intact, deep tendon reflexes 2+ symmetrical, motor strength normal upper and lower extremities, sensory exam intact SKIN: no suspicious lesion s, anicteric PERIPHERAL PULSES: normal BREASTS: no masses palpable b ilaterally MUSCULOSKELETAL: extremities unremark able, no clubbing, cyanosis or edema, Right biceps shortened, range of motion right elbow and right shoulder normal LYMPH NODES: no enlarged lymph no ari,spleen normal RECTAL EXAM: not examined PSYCH: alert, oriented ORAL CAVITY: normal, unremarkable
--- OUTSIDE RECORDS SUMMARY | 2024-12-19 07:00 | XMS_ITS ---
Author Organization Lio Puga III, MD Address [address] [place] [address] Care Team Providers Care Photogrammetry Airplane Pilot Name Role Phone Jona, Kartik Primary Care Provider Dr. Lio Herrera III Unavailable Allergies Allergen (clinical drug ingredient) Drug/Non Drug Allergy documented on EMR Reaction Allergy Type Onset Date Status Tree Nuts anaphylaxis Allergy Active REASON FOR VISIT HIV infection, History of thrombocytopenia, Large granular lymphocytes, History of Medications Medication SIG (Take, Route, Fr equency, Duration) Notes Start Date End Date Status Biktarvy 50-200-25 MG 1 tablet Orally Once a day Active Cialis 10 MG 1 tablet as needed Orally Active Social History Tobacco Use: Social History Observation Description Date Details (start date - stop date) Never Smoker NA - NA Sex Assigned At : Social History Observation Description Sex Assigned At Male Tobacco Use/Smoking Question Answer Notes Patient is a nonsmoker Additional Findings: Tobacco Non-User Aggressive non-smoker Vital Signs Temperature 98.2 degrees Fahrenheit 12/20/19 25 Blood pressure systolic 142 mm Hg 12/20/19 25 Blood pressure diastolic 80 mm Hg 025 Heart Rate 69 /min 12/19/2024 Height 73 in 12/19/2024 Weight 206 lbs 12/19/2024 BMI 27.18 kg/m2 12/19/2024 Encounters Encounter Location Date Provider Diagnosis Lio Puga III, MD [address] [place] [address] [place] [address] 12/19/2024 Lio Puga Thrombocytopenia D69 .6 ; Normochromic normocytic anemia D64.9 ; Overweight (BMI 25.0-29.9) E66.3 and Large granular lymphocyte disorder C91.Z0 Assessments Encounter Date Diagnosis (ICD Code) Assessment Notes Treat ment Notes Treatment Clinical Notes 12/19/2024 Thrombocytopenia (ICD-10 - D69.6) His platelet count is 113,000. He has had no bleeding or transfusions. He will refrain from taking aspirin.This value will be followed. 12/19/2024 Normochromic normocytic anemia (ICD-10 - D64.9) His hematocrit is 41 and this problem has resolved. 12/19/2024 Overweight (BMI 25.0-29.9) (ICD-10 - E66.3) His body mass index is 30, which is narrowing the obese range. We discussed his weight loss strategy. 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 There is no sign of a large cell lymphoma. Plan Of Treatment Medication Medication Name Sig Start Date Stop Date Notes Biktarvy 50-200-25 MG 1 tablet Orally Once a day Cialis 10 MG 1 tablet as needed Orally Pending Test Test Name Order Date PROFILE, RANDOM (COMPREHENSIVE METABOLIC ) 12/19/2024 CBC w DIFF 12/19/2024 Next Appt Details Follow Up: 6 Months, Reason: OV Provider Name:Lio Gunjan Puga , 12/20/2025 09:00:00 AM, [address] [place] [address], [address], [address], Progress Notes * Deric POLODOB:[birth year] (64 yo M)Acc No.[id number]:12/19/2024 Progress Notes Patient: Chapo QUINTANA Deric Nice Provider: Jonathan Puga MD :1960 A ge:64 Y S ex:Male Date:12/19/2024 Address:[address] [place] [address], [address], [place], [place] Pcp:Sudhakar Shepherd MD Subjective: * Chief Complaints: * H IV infectionHistory of thrombocytopeniaLarge granular lymphocytesHistory of * HPI: C OVID-19 Screening: He returns every 6 months to monitor his platelets and lymphocytes and red blood cells. Last visit he has been healthy and well. He is compliant with all of his treatments. He has had no fever or chills. He has had no recent adenopathy or splenomegaly. His blood work was reviewed with him in detail. Processes were found.? There was no evidence of a large granular lymphocytic neoplasm. Questions H ave you had any new onset fever, chills, cough, congestion, sore throat, shortness of breath, muscle aches? 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 He is [...] Verified] Objective: * Vitals: H t: 73, Wt:206, BMI:27.18, BP:142/80, HR:69, Temp:98.2, Wt-k.44. * P ast Orders: Lab:Complete Blood Count Aut o Diff * Collection Date 12/18/2024 06/18/2024 12/19/2023 Collection Time 09:10 AM 02:06 PM 03:37 PM Order Date 12/18/2024 06/18/2024 12/19/2023 White Blood Count 5.6 (Ref Range: 4.8-10.8 X10*3/uL) 5.9 (Ref Range: 4.8-10.8 X10*3/uL) 7.0 (Ref Range: 4.8-10.8 X10*3/uL) Red Blood Count 4.45 L (Ref Range: 4.60-5.80 X10*6/uL) 4.44 L (Ref Range: 4.60-5.80 X10*6/uL) 4.56 L (Ref Range: 4.60-5.80 X10*6/uL) Hemoglobin 14.2 (Ref Range: 14.0-18.0 g/dl) 14.3 (Ref Range: 14.0-18.0 g/dl) 14.4 (Ref Range: 14.0-18.0 g/dl) Hematocrit 41.2 L (Ref Range: 42.0-52.0 %) 40.8 L (Ref Range: 42.0-52.0 %) 42.2 (Ref Range: 42.0-52.0 %) Mean Corpuscular Volume 92.6 (Ref Range: 80.0-98.0 fL) 91.9 (Ref Range: 80.0-98.0 fL) 92.5 (Ref Range: 80.0-98.0 fL) Mean Corpuscular Hemoglobin 31.9 (Ref Range: 27.0-33.0 pg) 32.2 (Ref Range: 27.0-33.0 pg) 31.6 (Ref Range: 27.0-33.0 pg) Mean Corpuscular HGB Conc 34.5 (Ref Range: 31.0-36.0 g/dl) 35.0 (Ref Range: 31.0-36.0 g/dl) 34.1 (Ref Range: 31.0-36.0 g/dl) Red Cell Distribution Width 15.3 (Ref Range: 11.0-16.0 %) 14.5 (Ref Range: 11.0-16.0 %) 14.5 (Ref Range: 11.0-16.0 %) Platelet Count 113 L (Ref Range: 160-400 X10*3/uL) 111 L (Ref Range: 160-400 X10*3/uL) 127 L (Ref Range: 160-400 X10*3/uL) Mean Platelet Volume 11.6 (Ref Range: 9.4-12.4 fL) 12.2 (Ref Range: 9.4-12.4 fL) 12.0 (Ref Range: 9.4-12.4 fL) Neutrophils Percent Auto 63.2 (Ref Range: 45-73 %) 66.0 (Ref Range: 45-73 %) 67.1 (Ref Range: 45-73 %) Imm Gran Pct Auto 0.4 (Ref Range: 0.0-0.4 %) 0.3 (Ref Range: 0.0-0.4 %) 0.3 (Ref Range: 0.0-0.4 %) Lymphocytes Percent Auto 25.9 (Ref Range: 20-40 %) 23.9 (Ref Range: 20-40 %) 22.1 (Ref Range: 20-40 %) Monocytes Percent Auto 7.5 (Ref Range: 2-11 %) 6.3 (Ref Range: 2-11 %) 7.5 (Ref Range: 2-11 %) Eosinophils Percent Auto 2.3 (Ref Range: 0-4 %) 2.6 (Ref Range: 0-4 %) 2.3 (Ref Range: 0-4 %) Basophils Percent Auto 0.7 (Ref Range: 0-2 %) 0.9 (Ref Range: 0-2 %) 0.7 (Ref Range: 0-2 %) NRBC Pct Auto 0.0 (Ref Range: 0.0-0.2 /100WBC) 0.0 (Ref Range: 0.0-0.2 /100WBC) 0.0 (Ref Range: 0.0-0.2 /100WBC) Neutrophils Absolute Auto 3.5 (Ref Range: 2.0-8.3 x10*3/uL) 3.9 (Ref Range: 2.0-8.3 x10*3/uL) 4.7 (Ref Range: 2.0-8.3 x10*3/uL) Imm Gran Abs Auto 0.02 (Ref Range: 0.00-0.03 X10*3/uL) 0.02 (Ref Range: 0.00-0.03 X10*3/uL) 0.02 (Ref Range: 0.00-0.03 X10*3/uL) Lymphocytes Absolute Auto 1.5 (Ref Range: 1.2-4.9 X10*3/uL) 1.4 (Ref Range: 1.2-4.9 X10*3/uL) 1.5 (Ref Range: 1.2-4.9 X10*3/uL) Monocytes Absolute Auto 0.4 (Ref Range: 0.1-1.2 X10*3/uL) 0.4 (Ref Range: 0.1-1.2 X10*3/uL) 0.5 (Ref Range: 0.1-1.2 X10*3/uL) Eosinophils Absolute Auto 0.1 (Ref Range: 0.0-0.4 X10*3/uL) 0.2 (Ref Range: 0.0-0.4 X10*3/uL) 0.2 (Ref Range: 0.0-0.4 X10*3/uL) Basophils Absolute Auto 0.0 (Ref Range: 0.0-0.2 X10*3/uL) 0.1 (Ref Range: 0.0-0.2 X10*3/uL) 0.1 (Ref Range: 0.0-0.2 X10*3/uL) NRBC Abs Auto 0.000 (Ref Range: 0.0-0.012 X10*3/uL) 0.000 (Ref Range: 0.0-0.012 X10*3/uL) 0.000 (Ref Range: 0.0-0.012 X10*3/uL) * Lab:Comprehensive Met. Panel * Collection Date 12/18/2024 06/18/2024 12/19/2023 Collection Time 09:10 AM 02:06 PM 03:37 PM Order Date 12/18/2024 06/18/2024 12/19/2023 Sodium 140 (Ref Range: 135-145 mmol/L) 141 (Ref Range: 135-145 mmol/L) 141 (Ref Range: 135-145 mmol/L) Bilirubin Total 1.0 (Ref Range: 0.0-1.0 mg/dL) 1.3 H (Ref Range: 0.0-1.0 mg/dL) 1.2 H (Ref Range: 0.0-1.0 mg/dL) Aspartate Amino Transferase 22 (Ref Range: 5-37 U/L) 19 (Ref Range: 5-37 U/L) 18 (Ref Range: 5-37 U/L) Alanine Aminotransferase 12 (Ref Range: 0-40 U/L) 13 (Ref Range: 0-40 U/L) 15 (Ref Range: 0-40 U/L) Total Protein 6.6 (Ref Range: 6.5-8.0 g/dL) 6.7 (Ref Range: 6.5-8.0 g/dL) 6.8 (Ref Range: 6.5-8.0 g/dL) Albumin Level 3.9 (Ref Range: 3.5-5.0 g/dL) 4.0 (Ref Range: 3.5-5.0 g/dL) 4.0 (Ref Range: 3.5-5.0 g/dL) Alkaline Phosphatase 75 (Ref Range: 39-117 U/L) 72 (Ref Range: 39-117 U/L) 72 (Ref Range: 39-117 U/L) Potassium 4.3 (Ref Range: 3.3-5.1 mmol/L) 3.9 (Ref Range: 3.3-5.1 mmol/L) 4.1 (Ref Range: 3.3-5.1 mmol/L) Chloride 111 H (Ref Range: 96-108 mmol/L) 108 (Ref Range: 96-108 mmol/L) 109 H (Ref Range: 96-108 mmol/L) Carbon Dioxide 26 (Ref Range: 22-29 mmol/L) 26 (Ref Range: 22-29 mmol/L) 28 (Ref Range: 22-29 mmol/L) Anion Gap 7 L (Ref Range: 12-20) 11 L (Ref Range: 12-20) 8 L (Ref Range: 12-20) Blood Urea Nitrogen 17 H (Ref Range: 9-16 mg/dL) 18 H (Ref Range: 9-16 mg/dL) 16 (Ref Range: 9-16 mg/dL) Creatinine 1.01 (Ref Range: 0.5-1.4 mg/dL) 1.24 (Ref Range: 0.5-1.4 mg/dL) 1.14 (Ref Range: 0.5-1.4 mg/dL) Estimated Glomerular Filt Rate > 60 59 > 60 Glucose Random 84 (Ref Range: 60-115 mg/dL) 132 H (Ref Range: 60-115 mg/dL) 99 (Ref Range: 60-115 mg/dL) Calcium 8.7 (Ref Range: 8.4-10.2 mg/dL) 8.8 (Ref Range: 8.4-10.2 mg/dL) 8.8 (Ref Range: 8.4-10.2 mg/dL) * Examination: G eneral Examination: GENERAL APPEARANCE: [...] xtremities unremarkable, no clubbing, cyanosis or edema, Shortened right biceps muscle. PERIPHERAL PULSES: n ormal. NEUROLOGIC: a lert and oriented, cranial nerves 2-12 grossly intact, deep tendon reflexes 2+ symmetrical, motor strength normal upper and lower extremities, sensory exam intact. PSYCH: a lert, oriented. Assessment: * Assessment: 1. T hrombocytopenia - D69.6 (Primary) N otes :His platelet count is 113,000. He has had no bleeding or transfusions. He will refrain from taking aspirin.This value will be followed. 2 . N ormochromic normocytic anemia - D64.9 N otes :His hematocrit is 41 and this problem has resolved. 3 . O verweight (BMI 25.0-29.9) - E66.3 N otes :His body mass index is 30, which is narrowing the obese range. We discussed his weight loss strategy. 4 . 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 There is no sign of a large cell lymphoma. Plan: * Treatment: * Procedure Codes: * Preventive Medicine: Counseling: C are goal follow-up plan: Counseling for abnormal BMI given Y es Above Normal BMI Follow-up D ietary management education, guidance, and counseling, Dietary needs education * Follow Up: 6 Months (Reason: OV) * Images: * Sign off status: Completed true * Provider: Jonathan Puga MD Date: 0 12/19/2024 Generated for Roscoe vargas/Lesli/Gucci on: 10:15 AM EDT History and Physical Notes * HPI (History of Present Illness) Category Sub-Category Detail Notes COVID-19 Screening Questions Have you had any new onset fever, chills, cough, congestion, sore throat, shortness of breath, muscle aches?: No Examination Category Sub-Category Detail Notes General [...] unremark able, no clubbing, cyanosis or edema, Shortened right biceps muscle LYMPH NODES: no enlarged lymph no ari,spleen normal RECTAL EXAM: not examined PSYCH: alert, oriented ORAL CAVITY: normal, unremarkable
--- OUTSIDE RECORDS SUMMARY | 2025-05-02 07:44 | XMS_ITS ---
Author Organization Lio Puga III, MD Address [address] [place] [facility] [place] [address] Care Team Providers Care Licensed Mental Health Professional Name Role Phone Jona Troy Primary Care Provider Dr. Lio Herrera III [facility] REASON FOR VISIT HCC Risk Codes Social History Sex Assigned At : Social History Observation Description Sex Assigned At Male Encounters Encounter Location Date Provider Diagnosis Lio Puga III, MD [address] [place] [address] [place] [address] 05/02/2025 Lio Puga Plan Of Treatment Next Appt Details Provider Name:Lio Puga , 12/20/2025 09:00:00 AM, [address] [place] [address] [place], [address], Progress Notes * Deric POLODOB:[birth year] (64 yo M)Acc No.[id number]:05/02/2025 Patient: Chapo Deric QUINTANA :1960 A ge:64 Y S ex:Male Address:[address], [place] [address] * true * Date: Generated for Printi ng/Faxing/eTransmitting on: 10:14 AM EDT
--- OUTSIDE RECORDS SUMMARY | 2025-06-21 05:00 | XMS_ITS ---
Author Organization Lio Puga III, MD Address [address] [address] Care Team Providers Care Continuous Miner Operator Name Role Phone Jona, Kartik Primary Care Provider Dr. Lio Herrera III Unavailable Allergies Allergen (clinical drug ingredient) Drug/Non Drug Allergy documented on EMR Reaction Allergy Type Onset Date Status Tree Nuts anaphylaxis Allergy Active REASON FOR VISIT Followup Medications Medication SIG (Take, Route, Fr equency, Duration) Notes Start Date End Date Status Loratadine 10 MG 1 tablet Orally Once a [...] Tobacco Non-User Aggressive non-smoker Vital Signs Temperature 98.6 degrees Fahrenheit 06/21/20 25 Blood pressure systolic 133 mm Hg 06/21/20 25 Blood pressure diastolic 79 mm Hg 025 Heart Rate 74 /min 06/21/2025 Height 73 in 06/21/2025 Weight 203 lbs 06/21/2025 BMI 26.78 kg/m2 06/21/2025 Encounters Encounter Location Date Provider Diagnosis Lio Puga III, MD [address] [place] [address] [place] [address] 06/21/2025 Lio Puga Thrombocytopenia D69 .6 ; Overweight (BMI 25.0-29.9) E66.3 and Normochromic normocytic anemia D64.9 Assessments Encounter Date Diagnosis (ICD Code) Assessment Notes Treat ment Notes Treatment Clinical Notes 06/21/2025 Thrombocytopenia (ICD-10 - D69.6) His platelet count is 113,000. He has had no bleeding or transfusions. He will refrain from taking aspirin.This value will be followed. 06/21/2025 Overweight (BMI 25.0-29.9) (ICD-10 - E66.3) 06/21/2025 Normochromic normocy tic anemia (ICD-10 - D64.9) Plan Of Treatment Medication Medication Name Sig Start Date Stop Date Notes Biktarvy 50-200-25 MG 1 tablet Orally Once a day Cialis 10 MG 1 tablet as needed Orally Pending Test Test Name Order Date PROFILE, RANDOM (COMPREHENSIVE METABOLIC ) 06/21/2025 CBC w DIFF 06/21/2025 Next Appt Details Follow Up: 6 Months, Reason: OV Provider Name:Lio Puga , 12/20/2025 09:00:00 AM, [address] [place] [address] , [address], [address], Progress Notes * Deric POLODOB:[birth year] (64 yo M)Acc No.[id number]:06/21/2025 Progress Notes Patient: Deric CAMPOS Provider: Jonathan Puga MD :1960 A ge:64 Y S ex:Male Date:06/21/2025 Address:[address] [place] [address] [address], [place], [place] Pcp:Troy Tenorio Subjective: * Chief Complaints: * 1 . Followup. * HPI: C OVID-19 Screening: viral load not detedtable, dr arora id [facility], will get labs and call next week. Questions H ave you had any new [...] enies. D iarrhea d enies. H eartburn o ccasional. N ausea d enies. R ectal bleeding [...] Depressed mood d enies. 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 * Surgical History: f ull dental extractions without unusual bleeding , Vasectomy without bleeding 1991, repair right distal biceps tendon rupture, [facility] 2014, repair 3 cm laceration upper lip without bleeding 2014, biopsy of tongue 12/2018, No history . * Hospitalization/Major Diagno stic Procedure: p neumonia and dehydratioin 12/2018, No history . 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 He has no significant exposures. He is to [place]. He is not aware of any family history of mental illness, substance use disorder, or addictions. * Medications: T aking Loratadine 10 MG Tablet 1 tablet Orally Once a day , Taking Cialis 10 MG Tablet 1 tablet as needed Orally , Taking Biktarvy 50-200-25 MG Tablet 1 tablet Orally Once a day , Medication List reviewed and reconciled with the patient * Allergies: T ree Nuts: anaphylaxis - Allergy. Objective: * Vitals: H t: 73, Wt:203, BMI:26.78, BP:133/79, HR:74, Temp:98.6, Wt-k.08. * Examination: G eneral Examination: GENERAL APPEARANCE: p neetu, well nourished, well developed, in no acute distress, calm and relaxed: overweight: man. HEAD: a traumatic, normocephalic. EYES: e [...] sounds normal, no ascites, no organomegaly, no mass. RECTAL EXAM: n ot examined. MUSCULOSKELETAL: e xtremities unremarkable, no clubbing, cyanosis or edema. PERIPHERAL PULSES: n ormal. NEUROLOGIC: a lert and oriented, cranial nerves 2-12 grossly intact, deep tendon reflexes 2+ symmetrical, motor strength normal upper and lower extremities, sensory exam intact. PSYCH: a lert, oriented. Assessment: * Assessment: 1. T hrombocytopenia - D69.6 N otes :His platelet count is 113,000. He has had no bleeding or transfusions. He will refrain from taking aspirin.This value will be followed. 2 . O verweight (BMI 25.0-29.9) - E66.3 3 . N ormochromic normocytic anemia - D64.9 Plan: * Treatment: 2. O verweight (BMI 25.0-29.9) L AB: PROFILE, RANDOM (COMPREHENSIVE METABOLIC) L AB: CBC w DIFF 3. N ormochromic normocytic anemia L AB: PROFILE, RANDOM (COMPREHENSIVE METABOLIC) L AB: CBC w DIFF * Follow Up: 6 Months (Reason: OV) * Images: * The named appointment provid er may or may not be the originator of this progress note, and it is not deemed complete until electronically signed by the appointment provider. Sign off status: Pending * Provider: Jonathan Puga MD Date: Generated for Roscoe vargas/Lesli/Shayneitting on: 10:14 AM EDT History and Physical Notes * HPI (History of Present Illness) Category Sub-Category Detail Notes COVID-19 Screening Questions Have you had any new onset fever, chills, cough, congestion, sore throat, shortness of breath, muscle aches?: No Examination Category Sub-Category Detail Notes General Examination GENERAL APPEARANCE: pleasant , well nourished, well developed, in no acute distress, calm and relaxed: overweight: man HEAD: atraumatic, normocep halic EYES: eomi, perrla, anicte lizeth, conjugate EARS: normal NOSE: septum intact NECK/THYROID: no jugular venous di stention, no carotid bruit, thyroid normal HEART: no clicks, gallops, murmurs, or rubs, regular rhythm, S1, S2 normal, no s3, or vascular bruits LUNGS: clear to auscultatio n ABDOMEN: bowel sounds normal, no ascites, no organomegaly, no mass NEUROLOGIC: alert and oriented, cranial nerves 2-12 [...]
[2025-06-21 09:45] LABS: MANUAL DIFF FLAG NO
--- OUTSIDE RECORDS SUMMARY | 2025-06-21 10:14 | XMS_ITS | Patient Health Record ---
Author Organization [facility] Address [address] [place] [address] Care Team Providers Care Hall Cleaner Name Role Phone Joao (RETIRED) Sudhakar HAM Primary Care Provider Unavailable Christian Luis Jr Unavailable [phone] Allergies Allergen (clinical drug ingredient) Drug/Non Drug [...] Problem Status W/U Status Risk Notes Problem Screening for malignant neoplasm of colon (121585854) Encounter for screening for malignant neoplasm of colon (Z12.11) Active confirmed Problem Pre-procedure evaluation check (772846422) Pre-procedural examination (Z01.818) Active confirmed Plan Of Treatment Future Test Test Name Order Date COLONOSCOPY 10/12/2019 Insurance Providers Payer Name Payer Address Payer Phone Subscriber Number Group Number Insured Name Patient Relationship to Insured Coverage Start Date Coverage End Date BREANN GOMEZ [address] [place], [place] [address] [phone] [id number] ANGEL POLO Self - patient is the insured Medical (General) History Medical History History ICD Code Denies VA,DM,CVA,Lung disease,renal dise ase HIV/AIDS-diagnosed in 2019-- had FINISHED [employer]MENT [employer]PECTOR involement--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 Nimesh Fierro, ID specialist in [place] [facility] History Surgery Date(Month/Year) TORN RIGHT BICEP REPAIR
--- OUTSIDE RECORDS SUMMARY | 2025-06-21 10:14 | XMS_ITS | Clinical Summary ---
Author Organization [facility] Address [address] [facility] [address] [place] [address] Phone Care Team Providers Care Electrician Marine Name Role Phone Sudhakar Shepherd MD Primary Care Provider [phone] Social History Tobacco Use Types Packs/Day Years [...] PPO CIGNA PPO CIGNA PPO Care Teams Electrician Marine Relationship Specialty Start Date End Date Sudhakar Shepherd MD [address] [place] [phone] PCP - General Internal Medicine 01/29/19 Additional Source Comments The information contained in this document represents components of the legal health record. It is not the complete legal health record.[facility]
--- OUTSIDE RECORDS SUMMARY | 2025-06-21 10:15 | XMS_ITS | Patient Health Record ---
Author Organization Lio Puga III, MD Address [address] [place] [address] Care Team Providers Care Framing Consultant Name Role Phone JonaTroy Primary Care Provider Dr. Lio Herrera III Unavailable [phone] Allergies Allergen (clinical drug ingredient) Drug/Non Drug Allergy documented on EMR Reaction Allergy Type Onset Date Status Tree Nuts anaphylaxis Allergy Active Results Component Value Reference Range Notes Complete Blood Count Auto Di ff Reviewed date:12/19/2024 11:00:06 AM Interpretation: Performing Lab:[facility], [address] [place] [phone] Notes/Report: White Blood Count 5.6 4.8-10.8 X10*3/uL [...] Panel Reviewed date:12/19/2024 11:00:13 AM Interpretation: Performing Lab:[facility], [address] [place] [phone] Notes/Report: Sodium 140 135-145 mmol/L Potassium 4.3 [...] MG 1 tablet as needed Orally Active Immunizations Vaccine Route Administration Date Status Comme nts Flu-IIv4 Unknown 06/14/2023 Administered COVID 19 Moderna Unknown 01/09/2021 Administered COVID-19 Moderna SPIKEVAX Unknown 06/14/2024 Administer ed COVID 19 Moderna Unknown 11/22/2021 Administered COVID 19 Moderna Unknown 12/11/2020 Administered Td (adult) Unknown 12/08/2014 Administered COVID-19 Moderna SPIKEVAX Unknown 07/13/2023 Administer ed Fluzone High-Dose (HD-IIV3) Unknown 06/12/2025 Administ ered Fluzone High-Dose (HD-IIV3) Unknown 06/14/2024 Administ ered COVID Moderna Bivalent Unknown 05/28/2022 Administered COVID 19 Moderna Unknown 04/29/2021 Administered Flu-IIv4 Unknown 10/16/2021 Administered Social History Tobacco Use: Social History [...] Problem Status W/U Status Risk Notes Problem 206721318 Overweight (BMI 25.0-29.9) (E66.3) Active confirmed His body mass index is 30, which is narrowing the obese range. We discussed his weight loss strategy. Problem Thrombocytopenia (748494317) Thrombocytopenia (D69.6) Active confirmed His platelet count is 113,000. He has had no bleeding or transfusions. He will refrain from taking aspirin.This value will be followed. Problem 795790310 Human immunodeficiency virus [HIV] disease (B20) Active confirmed His HIV infection is well controlled and no change in his regimen is needed at this time. Problem 14808805 Varicose veins o f bilateral lower extremities with other complications (I83.893) Active confirmed There has been no change in his problem and it does not require treatment at this time. Problem 83306151 Normochromic normocytic anemia (D64.9) Active confirmed His hematocrit is 41 and this problem has resolved. Problem 315680926 Rupture of right biceps tendon, subsequent encounter (S46.211D) Active confirmed The area is now asymptomatic. Problem 366049282 Large granular lymphocyte disorder (C91.Z0) Active confirmed His blood work is now normal with normal differential while he is being treated for his HIV infection. There is no sign of a large cell lymphoma. Problem 46959052 Asymptomatic HIV infection (Z21) Active confirmed He remains under the care of infectious disease with good control of his infection. Vital Signs Heart Rate 74 /min 06/21/2025 Temperature 98.6 degrees Fahrenheit 06/21/2025 Blood pressure diastolic 79 mm Hg 06/21/2025 Height 73 in 06/21/2025 Blood pressure systolic 133 mm Hg 06/21/2025 Weight 203 lbs 06/21/2025 BMI 26.78 kg/m2 06/21/2025 Encounters Encounter Location Date Provider Diagnosis Lio Puga III, MD [address] [place] [address] [place] [address] 06/21/2025 Lio Puga Thrombocytopenia D69 .6 ; Overweight (BMI 25.0-29.9) E66.3 and Normochromic normocytic anemia D64.9 Lio Puga III, MD [address] [place] [address] [place] [address] 12/19/2024 Lio Puga Thrombocytopenia D69 .6 ; Normochromic normocytic anemia D64.9 ; Overweight (BMI 25.0-29.9) E66.3 and Large granular lymphocyte disorder C91.Z0 Lio Puga III, MD [address] [place] [address] [place] [address] 05/02/2025 Lio Puga Assessments Encounter Date Diagnosis (ICD Code) Assessment Notes Treat ment Notes Treatment Clinical Notes 06/21/2025 Thrombocytopenia (ICD-10 - D69.6) His platelet count is 113,000. He has had no bleeding or transfusions. He will refrain from taking aspirin.This value will be followed. 12/19/2024 Thrombocytopenia (ICD-10 - D69.6) His platelet count is 113,000. He has had no bleeding or transfusions. He will refrain from taking aspirin.This value will be followed. 12/19/2024 Normochromic normocytic anemia (ICD-10 - D64.9) His hematocrit is 41 and this problem has resolved. 06/21/2025 Overweight (BMI 25.0-29.9) (ICD-10 - E66.3) 12/19/2024 Overweight (BMI 25.0-29.9) (ICD-10 - E66.3) His body mass index is 30, which is narrowing the obese range. We discussed his weight loss strategy. 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 There is no sign of a large cell lymphoma. Plan Of Treatment Pending Test Test Name Order Date PROFILE, FASTING (COMPREHENSIVE METABOLI C) 06/29/2022 PROFILE, RANDOM (COMPREHENSIVE METABOLIC ) 06/29/2021 PROFILE, RANDOM (COMPREHENSIVE METABOLIC ) 06/21/2025 PROFILE, RANDOM (COMPREHENSIVE METABOLIC ) 05/23/2019 PROFILE, [...] CBC w DIFF 06/29/2021 CBC w DIFF 06/21/2025 CBC w DIFF 05/23/2019 CBC w DIFF 06/20/2024 CBC w DIFF 11/22/2018 CBC w DIFF 06/22/2023 CBC w DIFF 06/29/2022 CBC w DIFF 05/26/2020 CBC w DIFF 12/19/2024 CBC with MANUAL DIFFERENTIAL 04/23/2019 PLATELET COUNT 05/23/2019 SED RATE (ESR) 06/22/2023 Bone Marrow Biopsy and Aspiration 2018 Next Appt Details Provider Name:Lio Puga , 12/20/2025 09:00:00 AM, [address] [place] [address] , EMMIE Julita, [place], [phone], Insurance Providers Payer Name Payer Address Payer Phone Subscriber Number Group Number Insured Name Patient Relationship to Insured Coverage Start Date Coverage End Date MEDICARE NGS [address] [place] [id number] [id number] Deric Moore Self - patient is the insured [facility] [address] [place], [place] [id number] Deric Moore Self - patient is [...]
[2025-06-21 10:24] LABS: Hematocrit 45.3 % (42.0-52.0); Hemoglobin 15.2 g/dl (14.0-18.0); Imm Gran Abs Auto 0.02 X10*3/uL (0.00-0.03); Imm Gran Pct Auto 0.3 % (0.0-0.4); Lymphocytes Absolute Auto 1.4 X10*3/uL (1.2-4.9); Mean Corpuscular HGB Conc 33.6 g/dl (31.0-36.0); Mean Corpuscular Hemoglobin 31.5 pg (27.0-33.0); Mean Corpuscular Volume 93.8 fL (80.0-98.0); NRBC Abs Auto 0.000 X10*3/uL (0.0-0.012); NRBC Pct Auto 0.0 /100WBC (0.0-0.2); Platelet Count 118 X10*3/uL (160-400); Red Blood Count 4.83 X10*6/uL (4.60-5.80); White Blood Count 5.8 X10*3/uL (4.8-10.8)
[2025-06-21 11:10] LABS: Alanine Aminotransferase 19 U/L (0-40); Albumin Level 4.5 g/dL (3.5-5.0); Alkaline Phosphatase 81 U/L (39-117); Anion Gap 9 (12-20); Aspartate Amino Transferase 26 U/L (5-37); Blood Urea Nitrogen 14 mg/dL (9-16); Calcium 8.9 mg/dL (8.4-10.2); Carbon Dioxide 28 mmol/L (22-29); Chloride 107 mmol/L (96-108); Estimated Glomerular Filt Rate > 60; Potassium 4.0 mmol/L (3.3-5.1); Sodium 140 mmol/L (135-145); Total Protein 7.0 g/dL (6.5-8.0)
== END 2025-06-21 09:35 | disposition home or self-care (01) ==
LOC: HO.LAB 09:34
PROVIDERS: PCP Internal Medicine Medical Oncology; Visit Provider Internal Medicine Medical Oncology
DX: D69.6 Thrombocytopenia, unspecified (principal)
CPT/HCPCS: 36415; 80053; 85025

== ENCOUNTER 2025-07-02 12:22 | Outpatient (AMB) | payer MEDICARE, SELFPAY ==
--- OUTSIDE RECORDS SUMMARY | 2024-06-20 06:30 | XMS_ITS ---
Author Organization Lio Puga III, MD Address [address] [place] [address] Care Team Providers Care Hair Salon Manager Name Role Phone Troy Tenorio Primary Care Provider Dr. Lio Herrera III [phone] Allergies Allergen (clinical drug ingredient) Drug/Non Drug [...] Date Provider Diagnosis Lio Puga III, MD [address] [place] [address] [place] [address] 06/20/2024 Lio Puga Thrombocytopenia D69 .6 ; [...] Provider Name:Lio Puga , 12/20/2025 09:00:00 AM, [address] [place] [address] [address], [place], [address], Progress Notes * Deric POLODOB:[birth year] (63 yo M)Acc No.[id number]:06/20/2024 Progress Notes Patient: Deric CAMPOS Provider: Jonathan Puga MD :1960 A ge:63 Y S ex:Male Date:06/20/2024 Address:[address] [place] [address], [address], [place], [place] Pcp:Sudhakar Shepherd MD Subjective: * Chief Complaints: [...] bleeding 1991repair right distal biceps tendon rupture, [facility] 2014repair 3 cm laceration upper lip without [...] ggressive non-smoker 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 He has no significant exposures. He is [...] Jonathan Puga MD Date: Generated for Printi ng/Sandovalg/eTransmitting on: 03:56 PM EDT History and Physical Notes * HPI (History of Present Illness) Category Sub-Category Detail Notes COVID-19 Screening Questions Have you had any new onset fever, chills, cough, congestion, sore throat, shortness of breath, muscle aches?: No Have you been exposed to the virus withi n the last 10 days?: No Have you travelled internationally in [facility] last 10 days?: No Have you [...]
--- OUTSIDE RECORDS SUMMARY | 2024-12-19 07:00 | XMS_ITS ---
Author Organization Lio Puga III, MD Address [address] [facility] [facility] [place] [address] Care Team Providers Care Traffic Signal Mechanic Name Role Phone Jona, Kartik Primary Care [...] Date Provider Diagnosis Lio Puga III, MD [address] [place] [address] [place] [address] 12/19/2024 Lio Puga Thrombocytopenia D69 .6 ; [...] Name:Lio Gunjan Puga , 12/20/2025 09:00:00 AM, [address] [place] [address], [address], [address], Progress Notes * Deric POLODOB:[birth year] (64 yo M)Acc No.[id number]:12/19/2024 Progress Notes Patient: Chapo QUINTANA Deric Nice Provider: Jonathan Puga MD :1960 A ge:64 Y S ex:Male Date:12/19/2024 Address:[address] [place] [address], [address], [place], [place] Pcp:Sudhakar Shepherd MD Subjective: * Chief Complaints: [...] bleeding 1991repair right distal biceps tendon rupture, [facility] 2014repair 3 cm laceration upper lip [...] non-smoker 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 He has no significant exposures. He is [...] 0 12/19/2024 Generated for Roscoe vargas/Lesli/Gucci on: 1 03:56 PM EDT History and Physical Notes [...]
--- OUTSIDE RECORDS SUMMARY | 2025-06-21 05:00 | XMS_ITS ---
Author Organization Lio Puga III, MD Address [address] [place] [address] Care Team Providers Care Director Digital Communications Name Role Phone Troy Tenorio Primary Care Provider Dr. Lio Herrera III Unavailable Allergies Allergen (clinical drug ingredient) Drug/Non Drug Allergy documented on EMR Reaction Allergy Type Onset Date Status Tree Nuts anaphylaxis Allergy Active REASON FOR VISIT thrombophilia, LGL disorder, HIV, anemia Medications Medication SIG (Take, Route, Fr equency, [...] Date Provider Diagnosis Lio Puga III, MD [address] [place] [address] [place] [address] 06/21/2025 Lio Huffne Thrombocytopenia D69 .6 ; Large granular lymphocyte disorder C91.Z0 ; Normochromic normocytic anemia D64.9 ; Overweight (BMI 25.0-29.9) E66.3 ; Varicose veins of bilateral lower extremities with other complications I83.893 and Human immunodeficiency virus [HIV] disease B20 Assessments Encounter Date Diagnosis (ICD Code) Assessment Notes Treat ment Notes Treatment Clinical Notes 06/21/2025 Thrombocytopenia (ICD-10 - D69.6) His platelet count is 118,000. He has had no bleeding or transfusions. He will refrain from taking aspirin.This value will be followed. 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 There is no sign of a large cell lymphoma. 06/21/2025 Normochromic normocytic anemia (ICD-10 - D64.9) His hematocrit is 41 and this problem has resolved. 06/21/2025 Overweight (BMI 25.0-29.9) (ICD-10 - E66.3) His body mass index is 30, which is narrowing the obese range. We discussed his weight loss strategy. 06/21/2025 Varicose veins of bilateral lower extremities with other complications (ICD-10 - I83.893) There has been no change in his problem and it does not require treatment at this time. 06/21/2025 Human immunodeficien cy virus [HIV] disease (ICD-10 - B20) His HIV infection is well controlled and no change in his regimen is needed at this time. Plan Of Treatment Medication Medication Name Sig Start Date Stop Date Notes Loratadine 10 MG 1 tablet Orally Once a day Biktarvy 50-200-25 MG 1 tablet Orally Once a day Cialis 10 MG 1 tablet as needed Orally Pending Test Test Name Order Date PROFILE, RANDOM (COMPREHENSIVE METABOLIC ) 06/21/2025 CBC w DIFF 06/21/2025 Next Appt Details Follow Up: 6 Months, Reason: OV Provider Name:Lio Connellrne , 12/20/2025 09:00:00 AM, [address] [place] [address] EMMIE CHAPA, [place], [address], Progress Notes * Deric POLOB:[birth year] (64 yo M)Acc No.[id number]:06/21/2025 Progress Notes Patient: Deric CAMPOS Provider: Jonathan Puga MD :1960 A ge:64 Y S ex:Male Date:06/21/2025 Address:[address] [place] [address], [address], [facility] Pcp:Troy Tenorio Subjective: * Chief Complaints: * T hrombophiliaLGL disorderHIVAnemia * HPI: C OVID-19 Screening: He returns for a scheduled visit because of his previous hematological abnormalities. His HIV is stable and cared for by Dr. Fierro at [facility] infectious disease. He says that his viral load is nondetectable. His platelet count is stable and he has had no bleeding. His anemia is mild. His differential is normal. No change in his regimen is necessary today. He will be seen in six-month intervals. 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 He has no significant exposures. He is to [place]. He is not aware of any family history of mental illness, substance use disorder, or addictions. * Medications: T akingLoratadine 10 MG Tablet 1 tablet Orally Once a day Cialis 10 MG Tablet 1 tablet as needed Orally Biktarvy 50-200-25 MG Tablet 1 tablet Orally Once a day Medication List reviewed and reconciled with the patientTaking Loratadine 10 MG Tablet 1 tablet Orally Once a day Taking Cialis 10 MG Tablet 1 tablet as needed Orally Taking Biktarvy 50-200-25 MG Tablet 1 tablet Orally Once a day Medication List reviewed and reconciled with the patient * Allergies: T ree Nuts: anaphylaxis - Allergyno[Allergies Verified] Objective: * Vitals: H t: 73, Wt:203, BMI:26.78, BP:133/79, HR:74, Temp:98.6, Wt-k.08. * P ast Orders: Lab:Comprehensive Met. Panel * Collection Date 06/21/2025 12/18/2024 06/18/2024 Collection Time 09:43 AM 09:10 AM 02:06 PM Order Date 06/21/2025 12/18/2024 06/18/2024 Sodium 140 (Ref Range: 135-145 mmol/L) 140 (Ref Range: 135-145 mmol/L) 141 (Ref Range: 135-145 mmol/L) Bilirubin Total 1.2 H (Ref Range: 0.0-1.0 mg/dL) 1.0 (Ref Range: 0.0-1.0 mg/dL) 1.3 H (Ref Range: 0.0-1.0 mg/dL) Aspartate Amino Transferase 26 (Ref Range: 5-37 U/L) 22 (Ref Range: 5-37 U/L) 19 (Ref Range: 5-37 U/L) Alanine Aminotransferase 19 (Ref Range: 0-40 U/L) 12 (Ref Range: 0-40 U/L) 13 (Ref Range: 0-40 U/L) Total Protein 7.0 (Ref Range: 6.5-8.0 g/dL) 6.6 (Ref Range: 6.5-8.0 g/dL) 6.7 (Ref Range: 6.5-8.0 g/dL) Albumin Level 4.5 (Ref Range: 3.5-5.0 g/dL) 3.9 (Ref Range: 3.5-5.0 g/dL) 4.0 (Ref Range: 3.5-5.0 g/dL) Alkaline Phosphatase 81 (Ref Range: 39-117 U/L) 75 (Ref Range: 39-117 U/L) 72 (Ref Range: 39-117 U/L) Potassium 4.0 (Ref Range: 3.3-5.1 mmol/L) 4.3 (Ref Range: 3.3-5.1 mmol/L) 3.9 (Ref Range: 3.3-5.1 mmol/L) Chloride 107 (Ref Range: 96-108 mmol/L) 111 H (Ref Range: 96-108 mmol/L) 108 (Ref Range: 96-108 mmol/L) Carbon Dioxide 28 (Ref Range: 22-29 mmol/L) 26 (Ref Range: 22-29 mmol/L) 26 (Ref Range: 22-29 mmol/L) Anion Gap 9 L (Ref Range: 12-20) 7 L (Ref Range: 12-20) 11 L (Ref Range: 12-20) Blood Urea Nitrogen 14 (Ref Range: 9-16 mg/dL) 17 H (Ref Range: 9-16 mg/dL) 18 H (Ref Range: 9-16 mg/dL) Creatinine 1.02 (Ref Range: 0.5-1.4 mg/dL) 1.01 (Ref Range: 0.5-1.4 mg/dL) 1.24 (Ref Range: 0.5-1.4 mg/dL) Estimated Glomerular Filt Rate > 60 > 60 59 Glucose Random 121 H (Ref Range: 60-115 mg/dL) 84 (Ref Range: 60-115 mg/dL) 132 H (Ref Range: 60-115 mg/dL) Calcium 8.9 (Ref Range: 8.4-10.2 mg/dL) 8.7 (Ref Range: 8.4-10.2 mg/dL) 8.8 (Ref Range: 8.4-10.2 mg/dL) * Lab:Complete Blood Count Aut o Diff * Collection Date 06/21/2025 12/18/2024 06/18/2024 Collection Time 09:43 AM 09:10 AM 02:06 PM Order Date 06/21/2025 12/18/2024 06/18/2024 White Blood Count 5.8 (Ref Range: 4.8-10.8 X10*3/uL) 5.6 (Ref Range: 4.8-10.8 X10*3/uL) 5.9 (Ref Range: 4.8-10.8 X10*3/uL) Red Blood Count 4.83 (Ref Range: 4.60-5.80 X10*6/uL) 4.45 L (Ref Range: 4.60-5.80 X10*6/uL) 4.44 L (Ref Range: 4.60-5.80 X10*6/uL) Hemoglobin 15.2 (Ref Range: 14.0-18.0 g/dl) 14.2 (Ref Range: 14.0-18.0 g/dl) 14.3 (Ref Range: 14.0-18.0 g/dl) Hematocrit 45.3 (Ref Range: 42.0-52.0 %) 41.2 L (Ref Range: 42.0-52.0 %) 40.8 L (Ref Range: 42.0-52.0 %) Mean Corpuscular Volume 93.8 (Ref Range: 80.0-98.0 fL) 92.6 (Ref Range: 80.0-98.0 fL) 91.9 (Ref Range: 80.0-98.0 fL) Mean Corpuscular Hemoglobin 31.5 (Ref Range: 27.0-33.0 pg) 31.9 (Ref Range: 27.0-33.0 pg) 32.2 (Ref Range: 27.0-33.0 pg) Mean Corpuscular HGB Conc 33.6 (Ref Range: 31.0-36.0 g/dl) 34.5 (Ref Range: 31.0-36.0 g/dl) 35.0 (Ref Range: 31.0-36.0 g/dl) Red Cell Distribution Width 14.3 (Ref Range: 11.0-16.0 %) 15.3 (Ref Range: 11.0-16.0 %) 14.5 (Ref Range: 11.0-16.0 %) Platelet Count 118 L (Ref Range: 160-400 X10*3/uL) 113 L (Ref Range: 160-400 X10*3/uL) 111 L (Ref Range: 160-400 X10*3/uL) Mean Platelet Volume 11.9 (Ref Range: 9.4-12.4 fL) 11.6 (Ref Range: 9.4-12.4 fL) 12.2 (Ref Range: 9.4-12.4 fL) Neutrophils Percent Auto 64.7 (Ref Range: 45-73 %) 63.2 (Ref Range: 45-73 %) 66.0 (Ref Range: 45-73 %) Imm Gran Pct Auto 0.3 (Ref Range: 0.0-0.4 %) 0.4 (Ref Range: 0.0-0.4 %) 0.3 (Ref Range: 0.0-0.4 %) Lymphocytes Percent Auto 24.2 (Ref Range: 20-40 %) 25.9 (Ref Range: 20-40 %) 23.9 (Ref Range: 20-40 %) Monocytes Percent Auto 7.2 (Ref Range: 2-11 %) 7.5 (Ref Range: 2-11 %) 6.3 (Ref Range: 2-11 %) Eosinophils Percent Auto 2.7 (Ref Range: 0-4 %) 2.3 (Ref Range: 0-4 %) 2.6 (Ref Range: 0-4 %) Basophils Percent Auto 0.9 (Ref Range: 0-2 %) 0.7 (Ref Range: 0-2 %) 0.9 (Ref Range: 0-2 %) NRBC Pct Auto 0.0 (Ref Range: 0.0-0.2 /100WBC) 0.0 (Ref Range: 0.0-0.2 /100WBC) 0.0 (Ref Range: 0.0-0.2 /100WBC) Neutrophils Absolute Auto 3.8 (Ref Range: 2.0-8.3 x10*3/uL) 3.5 (Ref Range: 2.0-8.3 x10*3/uL) 3.9 (Ref Range: 2.0-8.3 x10*3/uL) Imm Gran Abs Auto 0.02 (Ref Range: 0.00-0.03 X10*3/uL) 0.02 (Ref Range: 0.00-0.03 X10*3/uL) 0.02 (Ref Range: 0.00-0.03 X10*3/uL) Lymphocytes Absolute Auto 1.4 (Ref Range: 1.2-4.9 X10*3/uL) 1.5 (Ref Range: 1.2-4.9 X10*3/uL) 1.4 (Ref Range: 1.2-4.9 X10*3/uL) Monocytes Absolute Auto 0.4 (Ref Range: 0.1-1.2 X10*3/uL) 0.4 (Ref Range: 0.1-1.2 X10*3/uL) 0.4 (Ref Range: 0.1-1.2 X10*3/uL) Eosinophils Absolute Auto 0.2 (Ref Range: 0.0-0.4 X10*3/uL) 0.1 (Ref Range: 0.0-0.4 X10*3/uL) 0.2 (Ref [...] sounds normal, no ascites, no organomegaly, no mass: overweight. RECTAL EXAM: n ot examined. MUSCULOSKELETAL: e xtremities unremarkable, no clubbing, cyanosis or edema. PERIPHERAL PULSES: n ormal. NEUROLOGIC: a lert and oriented, cranial nerves 2-12 grossly intact, deep tendon reflexes 2+ symmetrical, motor strength normal upper and lower extremities, sensory exam intact. PSYCH: a lert, oriented. Assessment: * Assessment: 1. T hrombocytopenia - D69.6 (Primary) N otes :His platelet count is 118,000. He has had no bleeding or transfusions. He will refrain from taking aspirin.This value will be followed. 2 . 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 There is no sign of a large cell lymphoma. 3 . N ormochromic normocytic anemia - D64.9 N otes :His hematocrit is 41 and this problem has resolved. 4 . O verweight (BMI 25.0-29.9) - E66.3 N otes :His body mass index is 30, which is narrowing the obese range. We discussed his weight loss strategy. 5 . V aricose veins of bilateral lower extremities with other complications - I83.893 N otes :There has been no change in his problem and it does not require treatment at this time. 6 . H uman immunodeficiency virus [HIV] disease - B20 N otes :His HIV infection is well controlled and no change in his regimen is needed at this time. Plan: * Treatment: 2. [...] Follow-up D ietary management education, guidance, and counseling * Follow Up: 6 Months (Reason: OV) * Images: * Sign off status: Completed true * Provider: Jonathan Puga MD Date: Generated for Allani sam/Lesli/eTransmitting on: 03:55 PM EDT History and Physical Notes * [...] sounds normal, no ascites, no organomegaly, no mass: overweight NEUROLOGIC: alert and oriented, cranial nerves [...]
--- NOTE | 2025-07-02 12:42 | MHC.OFFVIS ---
Intake Visit Reasons: 2 MO FU Allergies nut - unspecified (nut) Allergy (Unknown, Unverified 05/29/20 15:38) HIVES, THROAT SWELLING HPI Comments Details: This is a 64-year-old man, who is generally being in good health. He was in [place] in September 2018, and when he came back, he had some sort of an infectious process or virus. Thereafter, he started to have slowly progressive generalized weakness, fatigue, and start to feel that his balance which has improved. But, since then he has had persistent memory issues which have gotten worse. 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 He started to lose weight and has lost 50 pounds in the last 5 months. He also had some lesions in his tongue that were biopsied, which was benign, and a 2nd biopsy has been done recently. His weakness got progressively worse and he needed help to get up. When he stood up, he would feel that his legs would collapse under him and he was staggering. His thought that his speech was a little bit slurred also. He was transferred to [facility] and diagnosed as AIDS and HIV encephalitis.Has no memory of Drags left foot on walking. No longer needs a walker. Loses train of thought. Has had a personality change. Walking daily x3 [facility] Medical History (Updated 07/02/25 @ 12:47 by Margaux Dey MD) Encephalopathy HIV (human immunodeficiency virus infection) Review of Systems Const Details: Sleep:? Difficulty getting to sleep?denies.? Difficulty maintaining sleep?denies?.? Urge to move legs?denies.? Teeth grinding?denies.? Shouting or Kicking during sleep?denies.? Abnormal behavior during sleep?denies.? Excessive sleep?denies.? Snoring?denies.? Daytime sleepiness?denies.? ?? General/Constitutional:? Change in appetite?denies.? Chills?denies.? Fatigue?denies.? Fever?denies.? Weight gain?denies.? Weight loss?denies.? ?? Ophthalmologic:? Blurred vision?denies.? Diminished visual acuity?denies.? ?? ENT:? Stuffiness?denies.? Decreased hearing?denies.? Dry mouth?denies.? Ear pain?denies.? Nosebleed?denies.? Ringing in the ears?denies.? Sinus pain?denies.? Sore throat?denies.? Swollen glands?denies.? ?? Endocrine:? Cold intolerance?denies.? Excessive thirst?denies.? Frequent urination?denies.? Heat intolerance?denies.? ?? Respiratory:? Shortness of breath?denies.? Chest pain?denies.? Cough?denies.? ?? Breast:? Breast lump?denies.? Nipple discharge?denies.? ?? Cardiovascular:? Chest pain at rest?denies.? Chest pain with exertion?denies.? Claudication?denies.? Dizziness?denies.? Fluid accumulation in the legs?denies.? Irregular heartbeat?denies.? Palpitations?denies.? ?? Gastrointestinal:? Abdominal pain?denies.? Constipation?denies.? Diarrhea?denies.? Difficulty swallowing?denies.? Heartburn?denies.? Nausea?denies.? Rectal bleeding?denies.? ?? Hematology:? Easy bruising?denies.? Prolonged bleeding?denies.? ?? Genitourinary:? Frequent urination?denies.? Urgency?denies.? Incontinence?denies.? Erectile Dysfunction?denies.? ?? Musculoskeletal:? Neck pain?denies.? Back pain?denies.? Muscle aches?denies.? Painful joints?denies.? Sciatica?denies.? Weakness?denies.? ?? Podiatric:? Difficulty walking?denies.? Foot numbness?denies.? ?? Neurologic:? Difficulty swallowing?denies.? Balance difficulty?admits.? Coordination?normal.? Difficulty speaking?denies.? Dizziness?denies.? Fainting?denies.? Gait abnormality?admits.? Headache?denies.? Loss of strength?denies.? Loss of use of extremity?denies.? Low back pain?denies.? Memory loss?admits.? Seizures?denies.? Tics?denies.? Tingling/Numbness?denies.? Transient loss of vision?denies.? Tremor?denies.? ?? Psychiatric:? Anxiety?denies.? Auditory/visual hallucinations?denies.? Delusions?denies.? Depressed mood?denies.? Stressors?denies.? Substance abuse?denies.? Suicidal thoughts?denies.? ?? Physical Exam Neuro Other: Neurological: ? Abnormal neurological findings:?Minimal ataxia of gait..? Mental Status:?alert and oriented X 3,?Normal attention, orientation, memory and affect.? Cranial Nerves:?Pupils are equal, round and reactive to light. Fundoscopy shows normal disc bilaterally. External occular muscles are intact. Visual bakrer are full, no ptosis. Face is symmetrical, no facial weakness or droop. Facial sensations are normal. Tongue protrudes in midline. Palate elevates symmetrically. Shoulder shrugging is normal..? Motor Examination:?Normal muscle tone, bulk and strength,?No atrophy or fasciculations,?No drift of the extended upper extremities,?Deep tendon reflexes are 2+?,?Plantars are flexor?.? Motor Strength:? Proximal Muscles (out of 5): ?5 ? Distal Muscles (out of 5): ?5 ? Neck Flexors (out of 5): ?5 ? Neck Extensors (out of 5): ?5 ? Deltoid (out of 5): ?5 ? Biceps (out of 5): ?5 ? Triceps (out of 5): ?5 ? Serratus Anterior (out of 5): ?5 ? Wrist Extensors (out of 5): ?5 ? APB (out of 5): ?5 ? Finger Spread (out of 5): ?5 ? Ileopsoas (out of 5): ?5 ? Quadriceps (out of 5): ?5 ? Hamstrings (out of 5): ?5 ? Tibialis Anterior (out of 5): ?5 ? Peronei (out of 5): ?5 ? EDB (out of 5): ?5 ? Gastrocnemius (out of 5): ?5 ? Straight Leg Raising:?90 degrees.? Sensory Exam:?Normal light touch, temperature, pinprick, vibration and joint-position sensations?,?Rhomberg sign is absent.? Coordination:?no ataxia,?no titubation,?oryogr-lg-zqtv, hmne-lacc-zjhs test and rapid alternating movements were normal.? Gait Exam:?Within normal limits.? Cerebellar Signs:?Xnxfgs-tl-emir and hcfj-tr-mjqy is normal,?no dysdiadochokinesia?.? Extrapyramidal System:?No tremor, rigidity with normal facial expressions,?No bradykinesia, no bradyphrenia. Normal arm swing and posture. No propulsion or retropulsion.? Speech:?Normal,?no dysphasia or dysarthria..? Mini Mental Status Exam: ? Level of Consciousness:?Alert.? Orientation:?Knows correct year, month, date, day and season,?Knows correct city, county and state. Knows correct location and floor.? Registration:?Able to register 3 objects.? Attention:?Serial 7's performed accurately.? Recall:?Able to recall 3 out of 3 objects.? Language:?Normal spontaneous speech, fluency, repetition,naming, comprehension, reading and writing.? Total Score ?30/30.? General Examination: ? GENERAL APPEARANCE:?normal,?in no acute distress.? HEAD:?normocephalic,?atraumatic.? EYES:?sclera non-icteric,?conjunctiva clear.? EARS:?auditory canal clear,?tympanic membrane intact, clear.? NOSE:?no lesions.? ORAL CAVITY:?gums normal,?mucosa moist,?no lesions.? THROAT:?clear.? NECK/THYROID:?no cervical lymphadenopathy,?thyroid normal,?neck supple, full range of motion,?no carotid bruit.? SKIN:?no rashes,?no significant birthmarks.? HEART:?S1, S2 normal,?no murmurs.? LUNGS:?clear anteriorly and posteriorly.? CHEST:?no gross rib deformity,?clear to auscultation.? BACK:?normal exam of spine.? EXTREMITIES:?no edema.? PERIPHERAL PULSES:?normal.? PSYCH:?alert, oriented,?cognitive function intact,?cooperative with exam.? 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 White matter changes in bilateral internal capsules, cerebellum and middle cerebellar peduncles have resolved or are improved. Code(s): Z21 - Asymptomatic human immunodeficiency virus [HIV] infection status Category: Medical (2) MCI (mild cognitive impairment) with memory loss: Comment: 05/02/25 Awake and sleep EEG WNL. Code(s): G31.84 - Mild cognitive impairment of uncertain or unknown etiology Category: Medical Plan MRI brain and EEG reviewed with patient. Continue walking and exercise. Coding Level of Care Code Est Pt Level 4 (99781) Diagnoses HIV (human immunodeficiency virus infection) Z21 MCI (mild cognitive impairment) with memory loss G31.84
--- OUTSIDE RECORDS SUMMARY | 2025-07-02 15:55 | XMS_ITS | Patient Health Record ---
Author Organization [facility] Address [address] [place] [address] Care Team Providers Care Radio Frequency Design Engineer Name Role Phone Joao (RETIRED) Sudhakar HAM [...] Problem Screening for malignant neoplasm of colon (318538701) Encounter for screening for malignant neoplasm of colon (Z12.11) Active confirmed Problem Pre-procedure evaluation check (871443411) Pre-procedural examination (Z01.818) Active confirmed Plan Of Treatment Future Test Test Name Order Date COLONOSCOPY 10/12/2019 Insurance Providers Payer Name Payer Address Payer Phone Subscriber Number Group Number Insured Name Patient Relationship to Insured Coverage Start Date Coverage End Date BREANN GOMEZ [address] [place], [place] [address] [id number] ANGEL POLO Self - patient is the insured Medical (General) History Medical History History ICD Code Denies SC,DM,CVA,Lung disease,renal dise ase HIV/AIDS-diagnosed in 2019-- 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 Nimesh Fierro, ID specialist in [place] Surgical History Surgery Date(Month/Year) TORN RIGHT BICEP REPAIR
--- OUTSIDE RECORDS SUMMARY | 2025-07-02 15:56 | XMS_ITS | Patient Health Record ---
Author Organization Lio Puga III, MD Address [address] [place] [place] [address] Care Team Providers Care Aerodynamic Consultant Name Role Phone Jona Troy Primary Care Provider Dr. Lio Herrera III Unavailable [phone] Allergies Allergen (clinical drug ingredient) Drug/Non Drug Allergy documented on EMR Reaction Allergy Type Onset Date Status Tree Nuts anaphylaxis Allergy Active Results Component Value Reference Range Notes Complete Blood Count Auto Di ff Reviewed date:12/19/2024 11:00:06 AM Interpretation: Performing Lab:[facility], [address] [place] [phone] Notes/Report: White Blood Count 5.6 4.8-10.8 X10*3/uL [...] Panel Reviewed date:12/19/2024 11:00:13 AM Interpretation: Performing Lab:[address] [id number] Notes/Report: Sodium 140 135-145 mmol/L Potassium 4.3 [...] 3.5-5.0 g/dL Alkaline Phosphatase 75 39-117 U/L Complete Blood Count Auto Di ff Reviewed date:06/22/2025 06:20:08 AM Interpretation: Performing Lab:[address] [phone] Notes/Report: White Blood Count 5.8 4.8-10.8 X10*3/uL Red Blood Count 4.83 4.60-5.80 X10*6/uL Hemoglobin 15.2 14.0-18.0 g/dl Hematocrit 45.3 42.0-52.0 % Mean Corpuscular Volume 93.8 80.0-98.0 fL Mean Corpuscular Hemoglobin 31.5 27.0-33.0 pg Mean Corpuscular HGB Conc 33.6 31.0-36.0 g/dl Red Cell Distribution Width 14.3 11.0-16.0 % Platelet Count 118 160-400 X10*3/uL Mean Platelet Volume 11.9 9.4-12.4 fL Neutrophils Percent Auto 64.7 45-73 % Imm Gran Pct Auto 0.3 0.0-0.4 % Lymphocytes Percent Auto 24.2 20-40 % Monocytes Percent Auto 7.2 2-11 % Eosinophils Percent Auto 2.7 0-4 % Basophils Percent Auto 0.9 0-2 % NRBC Pct Auto 0.0 0.0-0.2 /100WBC Neutrophils Absolute Auto 3.8 2.0-8.3 x10*3/u L Imm Gran Abs Auto 0.02 0.00-0.03 X10*3/uL Lymphocytes Absolute Auto 1.4 1.2-4.9 X10*3/u L Monocytes Absolute Auto 0.4 0.1-1.2 X10*3/uL Eosinophils Absolute Auto 0.2 0.0-0.4 X10*3/u L Basophils Absolute Auto 0.1 0.0-0.2 X10*3/uL NRBC Abs Auto 0.000 0.0-0.012 X10*3/uL Comprehensive Met. Panel Reviewed date:06/22/2025 06:20:08 AM Interpretation: Performing Lab:[facility], [address] [place] [phone] Notes/Report: Sodium 140 135-145 mmol/L Potassium 4.0 3.3-5.1 mmol/L Chloride 107 96-108 mmol/L Carbon Dioxide 28 22-29 mmol/L Anion Gap 9 12-20 Blood Urea Nitrogen 14 9-16 mg/dL Creatinine 1.02 0.5-1.4 mg/dL Estimated Glomerular Filt Rate > 60 Chronic Kidney Disease: Estimated GFR < 60 mL/min/1.73m2 Severe Kidney Disease: Estimated GFR < 15 mL/min/1.73m2 Glucose Random 121 60-115 mg/dL Calcium 8.9 8.4-10.2 mg/dL Bilirubin Total 1.2 0.0-1.0 mg/dL Aspartate Amino Transferase 26 5-37 U/L Alanine Aminotransferase 19 0-40 U/L Total Protein 7.0 6.5-8.0 g/dL Albumin Level 4.5 3.5-5.0 g/dL Alkaline Phosphatase 81 39-117 U/L Reason For Referral No Information [...] Problem Status W/U Status Risk Notes Problem 501184031 Overweight (BMI 25.0-29.9) (E66.3) Active confirmed His body mass index is 30, which is narrowing the obese range. We discussed his weight loss strategy. Problem Thrombocytopenia (715061094) Thrombocytopenia (D69.6) Active confirmed His platelet count is 118,000. He has had no bleeding or transfusions. He will refrain from taking aspirin.This value will be followed. Problem 955037173 Human immunodeficiency virus [HIV] disease (B20) Active confirmed His HIV infection is well controlled and no change in his regimen is needed at this time. 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 Problem 65185029 Normochromic normocytic anemia (D64.9) Active confirmed His hematocrit is 41 and this problem has resolved. Problem 541588678 Rupture of right biceps tendon, subsequent encounter (S46.211D) Active confirmed The area is now asymptomatic. 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 There is no sign of a large cell lymphoma. Problem 52690126 Asymptomatic HIV infection (Z21) Active confirmed He [...] Date Provider Diagnosis Lio Puga III, MD [address] [place] [address] [place] [address] 12/19/2024 Lio Puga Thrombocytopenia D69 .6 ; Normochromic normocytic anemia D64.9 ; Overweight (BMI 25.0-29.9) E66.3 and Large granular lymphocyte disorder C91.Z0 Lio Puga III, MD [address] [place] [address] [place] [address] 06/21/2025 Lio Puga Thrombocytopenia D69 .6 ; Large granular lymphocyte disorder C91.Z0 ; Normochromic normocytic anemia D64.9 ; Overweight (BMI 25.0-29.9) E66.3 ; Varicose veins of bilateral lower extremities with other complications I83.893 and Human immunodeficiency virus [HIV] disease B20 Lio Puga III, MD [address] [place] [address] DR [place], [place] [address] 05/02/2025 Lio Puga Assessments Encounter Date Diagnosis (ICD Code) Assessment Notes Treat ment Notes Treatment Clinical Notes 12/19/2024 Thrombocytopenia (ICD-10 - D69.6) His platelet count is 113,000. He has had no bleeding or transfusions. He will refrain from taking aspirin.This value will be followed. 12/19/2024 Normochromic normocytic anemia (ICD-10 - D64.9) His hematocrit is 41 and this problem has resolved. 06/21/2025 Thrombocytopenia (ICD-10 - D69.6) His platelet count is 118,000. He has had no bleeding or transfusions. He will refrain from taking aspirin.This value will be followed. 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 There is no sign of a large cell lymphoma. 12/19/2024 Overweight (BMI 25.0-29.9) (ICD-10 - E66.3) His body mass index is 30, which is narrowing the obese range. We discussed his weight loss strategy. 06/21/2025 Normochromic normocytic anemia (ICD-10 - D64.9) His hematocrit is 41 and this problem has resolved. 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 There is no sign of a large cell lymphoma. 06/21/2025 Overweight (BMI 25.0-29.9) (ICD-10 - E66.3) [...] needed at this time. Plan Of Treatment Pending Test Test Name Order Date PROFILE, FASTING (COMPREHENSIVE METABOLI C) 06/29/2022 PROFILE, RANDOM (COMPREHENSIVE METABOLIC ) 12/21/2023 PROFILE, RANDOM (COMPREHENSIVE METABOLIC ) 06/21/2025 PROFILE, RANDOM (COMPREHENSIVE METABOLIC ) 06/29/2021 PROFILE, RANDOM (COMPREHENSIVE METABOLIC ) 05/23/2019 PROFILE, RANDOM (COMPREHENSIVE METABOLIC ) 06/22/2023 PROFILE, RANDOM (COMPREHENSIVE METABOLIC ) 06/20/2024 PROFILE, RANDOM (COMPREHENSIVE METABOLIC ) 11/22/2018 PROFILE, RANDOM (COMPREHENSIVE METABOLIC ) 12/19/2024 PROFILE, RANDOM (COMPREHENSIVE METABOLIC ) 05/26/2020 PROFILE, RANDOM (COMPREHENSIVE METABOLIC ) 04/23/2019 PROFILE, RANDOM (COMPREHENSIVE METABOLIC ) 12/21/2022 LDH 06/22/2023 CBC w DIFF 12/21/2022 CBC w DIFF 12/21/2023 CBC w DIFF 06/21/2025 CBC w DIFF 06/29/2021 CBC w DIFF 05/23/2019 CBC w DIFF 06/20/2024 CBC w DIFF 11/22/2018 CBC w DIFF 06/22/2023 CBC w DIFF 06/29/2022 CBC w DIFF 12/19/2024 CBC w DIFF 05/26/2020 CBC with MANUAL DIFFERENTIAL 04/23/2019 PLATELET COUNT 05/23/2019 SED RATE (ESR) 06/22/2023 Bone Marrow Biopsy and Aspiration 2018 Next Appt Details Provider Name:Lio Puga , 12/20/2025 09:00:00 AM, [address] [place] [address] [address], [place], [address], Insurance Providers Payer Name Payer Address Payer Phone Subscriber Number Group Number Insured Name Patient Relationship to Insured Coverage Start Date Coverage End Date MEDICARE NGS [address] [place] [phone] [id number] Deric Moore Self - patient is the insured [facility] [address] [place], [place] [phone] [phone] [id number] Deric Moore Self - patient is [...]
--- OUTSIDE RECORDS SUMMARY | 2025-07-02 15:56 | XMS_ITS | Clinical Summary ---
Author Organization [facility] Address [address] [place] [address] Phone Care Team Providers Care Director Of Retention Name Role Phone Sudhakar Shepherd MD Primary Care Provider [phone] Social History Tobacco Use Types Packs/Day Years [...] PPO CIG[employer] PPO CIGNA PPO Care Teams Director Of Retention Relationship Specialty Start Date End Date Sudhakar Shepherd MD [address] [place] [id number] PCP - General Internal Medicine 01/29/19 Additional Source Comments The information contained in this document represents components of the legal health record. It is not the complete legal health record.[facility]
== END 2025-07-02 12:58 | disposition home or self-care (01) ==
LOC: HO.HSM 12:25
PROVIDERS: PCP Internal Medicine; Visit Provider Psychiatry & Neurology Neurology
DX: Z21 Asymptomatic human immunodeficiency virus [HIV] infection status (principal); G31.84 Mild cognitive impairment of uncertain or unknown etiology
CPT/HCPCS: 99214

== ENCOUNTER → 2025-07-02 12:22 | Outpatient (BNVA) | payer MEDICARE, SELFPAY | PROVIDERS: PCP Internal Medicine; Visit Provider Psychiatry & Neurology Neurology | DX: G31.84 Mild cognitive impairment of uncertain or unknown etiology (principal); Z21 Asymptomatic human immunodeficiency virus [HIV] infection status | CPT/HCPCS: 99212 ==